=== PATIENT | male | born 1950 | race Caucasian/White ===

== ENCOUNTER → 2017-10-25 08:42 | Outpatient (CLI) | payer MEDICARE, OTHER, SELFPAY ==
--- NOTE | 2017-10-25 06:55 | CT_ITS ---
STUDY: LOW DOSE CT LUNG CANCER SCREENING REASON FOR EXAM: Male, 67 years old. Screening for lung cancer RADIATION DOSAGE (If Supplied By Facility): CTDIvol = ( 4.02 ) mGy, DLP = ( 158.03 ) mGycm TECHNIQUE: No contrast was administered. Low dose technique was utilized (average mAS-38 and kVp 120). 1.25 mm axial source images with a slice interval of 1.25-mm were reconstructed in lung windows. 2.5 mm axial source images with a slice interval of 2.5-mm were reconstructed in lung windows. 5.0 mm axial source images with a slice interval of 5.0-mm were reconstructed in soft tissue windows. Nodule measured using lung windows on PACS and/or independent workstation with automated measurement of minimum and maximum diameter. Nodule measurement reported as average diameter rounded to the nearest whole number. Growth is defined as an increase ins size of greater than 1.5 mm. COMPARISON: None. NODULES: The lungs are clear. There is no demonstrated pleural abnormality. Normal heart and pericardium. Normal mediastinum. Normal hilar regions. Normal unenhanced pulmonary arteries. Normal aorta arch and descending thoracic aorta. There are multi-level degenerative changes and demineralization of the thoracic spine. There is no demonstrated abnormality of the visualized upper abdomen. CT/Low Dose CT Lung Screening IMPRESSION: Lung-RADS category 2. Recommendation: Routine screening CT scan in one year. IMPORTANT NOTES FOR USE: ACR Lung-RADS Version 1.0 Assessment Categories Release Date: November 15, 2013 Category: Coded 0-4 bases on nodule(s) with highest degree of suspicion. Negative screen is defined as categories 1 and 2; a positive screen is defined as categories 3 and 4. Category 3 and 4A nodules that are unchanged on interval CT should be coded as category 2, and individuals returned to screening in 12 months. Category 4X: Category 3 or 4 nodules with additional imaging findings that increase the suspicion of lung cancer, such as spiculation, GGN that doubles in size in 1 year, enlarged lymph notes, etc. Category Modifiers: S (significant finding unrelated to lung cancer) and C (prior history of treated lung cancer) may be added to the 0-4 Lung-RADS Electronically Signed: Angella Hernandez MD at 8:05 EDT Tel , Service support ,
== END ==
PROVIDERS: Family Provider Internal Medicine; PCP Internal Medicine; Visit Provider Internal Medicine Hematology & Oncology
DX: Z12.2 Encounter for screening for malignant neoplasm of respiratory organs (principal); Z87.891 Personal history of nicotine dependence
CPT/HCPCS: G0297

== ENCOUNTER → 2017-12-08 09:01 | Outpatient (CLI) | payer MEDICARE, OTHER, SELFPAY ==
[2017-12-08 09:00] VITALS: PULSE 61; PULSE 64; PULSE 69; PULSE 76; PULSE 79; PULSE 83; PULSE 85; PULSE 94; O2SAT 89; O2SAT 90; O2SAT 91; O2SAT 92; O2SAT 93; O2SAT 94
--- NOTE | 2017-12-08 13:27 | WT_ITS ---
PSN 6 Minute Walk Test - 6 Minute Walk Test 6 Minute Walk Test: 6 Minute Walk Test PSN:6-Minute Walk Test Start: 12/08/17 09: 20 Freq: Status: Active Protocol: RESP.6MINW Document 12/08/17 09:00 ALBER (Rec: 12/08/17 09:23 JLA [id number]) 6 Minute Walk Test Date Performed 12/08/17 Time Performed 09:00 Height 5 ft 11 in Weight: 217 lb 6.449 oz Weight in Pounds 217.[address]: Rk Dawson Assistive device used: None Pre-test Oxygen Delivery Method Room Air Pulse Ox (%) 92 Pulse Rate (60-100 beats/min) 61 Dyspnea Alexus Scale (0-10) 0 Exertion Alexus Scale (6-20) 6 1st minute Oxygen Delivery Method Room Air Pulse Ox (%) 93 Pulse Rate (60-100 beats/min) 69 2nd minute Oxygen Delivery Method Room Air Pulse Ox (%) 91 Pulse Rate (60-100 beats/min) 79 3rd minute Oxygen Delivery Method Room Air Pulse Ox (%) 91 Pulse Rate (60-100 beats/min) 83 4th minute Oxygen Delivery Method Room Air Pulse Ox (%) 90 Pulse Rate (60-100 beats/min) 85 5th minute Oxygen Delivery Method Room Air Pulse Ox (%) 89 Pulse Rate (60-100 beats/min) 94 6th minute Oxygen Delivery Method Room Air Pulse Ox (%) 91 Pulse Rate (60-100 beats/min) 76 Dyspnea Alexus Scale (0-10) 2 Exertion Alexus Scale (6-20) 13 Post-test Oxygen Delivery Method Room Air Pulse Ox (%) 94 Pulse Rate (60-100 beats/min) 64 Full Laps Walked 19 Partial Lap, Number of Tiles Walked 47 Total Distance Walked (ft) 1168 - Interpretation Interpretation: The patient ambulated 1160 feet over the course of 6 minutes beginning on room air without assistive devices of brace. Pretest and oxygen saturation was noted to be 92% on room air. With ambulation, the darion oxygen saturation was 89%. There was no significant exertional oxygen desaturation. - Recommendations Recommendations: There is no indication for the use of supplemental oxygen at this time. However , close interval follow-up is recommended given the low resting oxygen saturation prior to testing in conjunction with an ambulatory pulse ox reading of 89%.
== END ==
PROVIDERS: Family Provider Internal Medicine; PCP Internal Medicine; Visit Provider Internal Medicine Critical Care Medicine
DX: J44.9 Chronic obstructive pulmonary disease, unspecified (principal)
CPT/HCPCS: 94618

== ENCOUNTER → 2017-12-12 10:51 | Outpatient (CLI) | payer MEDICARE, OTHER, SELFPAY ==
--- NOTE | 2017-12-12 10:54 | ECHOD_ITS ---
Reason For Study: Ventricular Tachycardia Procedure This was a 2D Doppler, Color Flow transthoracic echocardiogram. The exam was of poor technical quality due to body habitus. The study was technically difficult. Contrast injection was performed. Exam performed in department. Left Ventricle Moderately dilated left ventricle. Mild segmental systolic dysfunction (see wall motion). The estimated ejection fraction is 45 %. There is evidence of diastolic dysfunction. Posterior-Basal: Akinetic. Basal inferoseptal: Hypokinetic. Mid-Anterior : Hypokinetic. Mid-Lateral : Hypokinetic. Mid-Posterior: Akinetic. Mid-anteroseptal : Hypokinetic. Anterior [place] : Hypokinetic. Lateral [place] : Hypokinetic. Right Ventricle Normal RV size. ICD or pacer leads identified within the right ventricle. Normal systolic function. Atria The left atrium is mildly enlarged. Normal right atrium. ICD or pacer leads identified within the right atrium. No doppler evidence for ASD. Mitral Valve There is no mitral annular calcification. Normal mitral valve. Trivial mitral valve insufficiency. Tricuspid Valve Normal tricuspid valve. Trivial tricuspid valve insufficiency. Right ventricular systolic pressure estimated to be 27 mmHg. Aortic Valve Trisinus/trileaflet aortic valve. Moderate focal aortic valve thickening. Moderate focal aortic valve calcification. Pulmonic Valve The pulmonic valve is not well visualized. Great Vessels Normal sized aortic root. Pericardium/Pleural No pericardial effusion. Medication Definity0.6ml given slow IV push to enhance endocardial definition. MMode/2D Measurements & Calculations LVIDd: 6.4 cm IVSd: 1.2 cm Ao root diam: 3.6 cm LVIDs: 5.2 cm LVPWd: 0.75 cm RVDd: 4.8 cm FS: 18.3 % LAV(MOD-bp): 57.0 ml LA A4 area: 18.9 cm2 RA A4 area: 19.1 cm2 LAV(MOD-bp) Indexed: 26.1 ml/m2 LAV(MOD-sp2): 64.6 ml LAV(MOD-sp4): 48.6 ml Doppler Measurements & Calculations MV E max kelby: 62.7 cm/sec Lat Peak E' Kelby: 6.6 cm/sec Med Peak E' Kelby: 3.9 cm/sec MV A max kelby: 67.9 cm/sec E/E' lat: 9.5 E/E' med: 16.2 MV E/A: 0.92 Ao V2 max: 225.1 cm/sec LV V1 max: 89.0 cm/sec PA V2 max: 101.9 cm/sec Ao max P.3 mmHg LV V1 max P.2 mmHg Ao V2 mean: 161.0 cm/sec LV V1 mean P.0 mmHg Ao mean P.4 mmHg LV V1 mean: 67.5 cm/sec Ao V2 VTI: 46.6 cm LV V1 VTI: 20.0 cm TR max kelby: 244.1 cm/sec TR max P.8 mmHg Interpretation Summary The study was technically difficult. Contrast injection was performed. Moderately dilated left ventricle. Mild segmental systolic dysfunction (see wall motion). The estimated ejection fraction is 45 %. The left atrium is mildly enlarged. Trivial mitral valve insufficiency. Trivial tricuspid valve insufficiency. Moderate focal aortic valve thickening. Moderate focal aortic valve calcification. Right ventricular systolic pressure estimated to be 27 mmHg. There is evidence of diastolic dysfunction. ICD or pacer leads identified within the right atrium ICD or pacer leads identified within the right ventricle. Ordering Physician: Raysa Carlos Referring Physician: Cathy Kellogg Performed By: Deirdre Varner RDCS, JUAN ANTONIO
== END ==
PROVIDERS: Family Provider Internal Medicine; PCP Internal Medicine
DX: I47.2 Ventricular tachycardia (principal)
CPT/HCPCS: 93306; Q9957; A4216; C8929

== ENCOUNTER → 2017-12-18 10:47 | Outpatient (CLI) | payer MEDICARE, OTHER, SELFPAY ==
--- NOTE | 2017-12-18 14:29 | PFTCOMP ---
COMPLETE PULMONARY FUNCTION TEST INTERPRETATION Brief HPI: Patient is a 67 year old female, currently under the care of Dr. Dawson, who presents to [facility] for complete pulmonary function tests secondary to diagnosis of COPD. Respiratory therapist reports good effort and reproducible results. Interpretation: Forced expiration spirometry shows no large airways obstructive ventilatory defect with an FEV1 of 82% predicted. There is no significant bronchodilator response by ATS criteria. Spirograms are of good quality and plateau slowly, indicating slowly emptying areas of the lungs. The respiratory flow volume loop shows decreased expiratory flow rates at high lung volumes consistent with small airways obstruction. Lung volumes by body plethysmography show a normal total lung capacity at 7.43 L, 108% predicted. All other lung volumes are within normal limits. Diffusion capacity by carbon monoxide is decreased at 66% predicted. The airway resistance is elevated. No previous pulmonary function tests were available for review. Impression: Isolated defect in diffusion capacity consistent with a pulmonary vascular disease. There are also stigmata of small airways disease noted.
--- NOTE | 2017-12-18 14:32 | PFTCOMP_ITS ---
COMPLETE PULMONARY FUNCTION TEST INTERPRETATION Brief HPI: Patient is a 67 year old female, currently under the care of Dr. Dawson , who presents to [facility] for complete pulmonary function tests secondary to diagnosis of COPD. Respiratory therapist reports good effort and reproducible results. Interpretation: Forced expiration spirometry shows no large airways obstructive ventilatory defect with an FEV1 of 82% predicted. There is no significant bronchodilator response by ATS criteria. Spirograms are of good quality and plateau slowly, indicating slowly emptying areas of the lungs. The respiratory flow volume loop shows decreased expiratory flow rates at high lung volumes consistent with small airways obstruction. Lung volumes by body plethysmography show a normal total lung capacity at 7.43 L , 108% predicted. All other lung volumes are within normal limits. Diffusion capacity by carbon monoxide is decreased at 66% predicted. The airway resistance is elevated. No previous pulmonary function tests were available for review. Impression: Isolated defect in diffusion capacity consistent with a pulmonary vascular disease. There are also stigmata of small airways disease noted.
== END ==
PROVIDERS: Family Provider Internal Medicine; PCP Internal Medicine; Visit Provider Internal Medicine Critical Care Medicine
DX: J44.9 Chronic obstructive pulmonary disease, unspecified (principal)
CPT/HCPCS: 94060; 94726; 94729

== ENCOUNTER → 2018-11-03 11:52 | Outpatient (CLI) | payer MEDICARE, OTHER, SELFPAY ==
--- NOTE | 2018-11-03 12:44 | CT_ITS ---
STUDY: LOW DOSE CT LUNG CANCER SCREENING REASON FOR EXAM: Male, 68 years old. History of 56 pack years of smoking. RADIATION DOSAGE (If Supplied By Facility): CTDIvol = ( 4.02 ) mGy, DLP = ( 152.50 ) mGycm TECHNIQUE: No contrast was administered. Low dose technique was utilized (average mAS-38 and kVp 120). 1.25 mm axial source images with a slice interval of 1.25-mm were reconstructed in lung windows. 2.5 mm axial source images with a slice interval of 2.5-mm were reconstructed in lung windows. 5.0 mm axial source images with a slice interval of 5.0-mm were reconstructed in soft tissue windows. Nodule measured using lung windows on PACS and/or independent workstation with automated measurement of minimum and maximum diameter. Nodule measurement reported as average diameter rounded to the nearest whole number. Growth is defined as an increase ins size of greater than 1.5 mm. COMPARISON: Comparison is made with prior examination dated October 25, 2017. NODULES: No suspicious nodules are seen. Emphysema: Minimal scarring at the lung bases slightly worse on the left lung base with cystic changes. Endobronchial lesion: None Aorta: Scattered calcified atherosclerotic plaques. Coronary arteries: Coronary artery calcification. Heart: A left-sided dual-chamber pacemaker is seen. Pulmonary artery: Unremarkable. Mediastinal nodes: Scattered benign-appearing small mediastinal lymph nodes. Other chest and abdominal findings: Small hiatal hernia. Degenerative changes of the thoracic vertebrae. CT/Low Dose CT Lung Screening IMPRESSION: Lung-RADS category 2 - Continue annual screening with LDCT in 12 months. IMPORTANT NOTES FOR USE: ACR Lung-RADS Version 1.0 Assessment Categories Release Date: November 15, 2013 Category: Coded 0-4 bases on nodule(s) with highest degree of suspicion. Negative screen is defined as categories 1 and 2; a positive screen is defined as categories 3 and 4. Category 3 and 4A nodules that are unchanged on interval CT should be coded as category 2, and individuals returned to screening in 12 months. Category 4X: Category 3 or 4 nodules with additional imaging findings that increase the suspicion of lung cancer, such as spiculation, GGN that doubles in size in 1 year, enlarged lymph notes, etc. Category Modifiers: S (significant finding unrelated to lung cancer) and C (prior history of treated lung cancer) may be added to the 0-4 Lung-RADS Electronically Signed: Andrew Arrington, at 13:13 EDT , Service support ,
--- NOTE | 2018-11-03 14:47 | ART_ITS ---
Reason For Study: Claudication Procedure A bilateral lower extremity continuous wave Doppler with analog waveform analysis,segmental pressures,and ankle brachial indexes without exercise. Left Segmental Pressures Left brachial= 113mmHg. Left thigh = 71mmHg. Left calf = 66mmHg. Left posterior tibial artery = 58mmHg. Left dorsalis pedis artery = 58mmHg. The left dorsalis pedis waveforms are monophasic. The left posterior tibial artery waveforms are monophasic. Right Segmental Pressures Right brachial= 111mmHg. Right posterior tibial artery = 137mmHg. Right dorsalis pedis artery = 142mmHg. Right digit = 123 mmHg. The right dorsalis pedis waveforms are triphasic. The right posterior tibial artery waveforms are triphasic. Indices The right ankle brachial index by the dorsalis pedis is 1.3. The right ankle brachial index by the posterior tibial artery is 1.2. The right digital-brachial index is 1.1. The left ankle brachial index by the dorsalis pedis is .51. The left ankle brachial index by the posterior tibial artery is .51. Interpretation Summary Normal resting right lower extremity indices and waveforms. Abnormal left lower extremity indices and waveforms suggesting possible ileofemoral inflow/superficial femoral artery occlusive disease well within the range of vascular claudication. Left PT and DP doppler waveforms are monophasic suggesting multisegmental disease. Ordering Physician: Cathy Kellogg M.D. Referring Physician: Cathy Kellogg M.D. Performed By: Kizzy Rios RVT
== END ==
PROVIDERS: Family Provider Internal Medicine; PCP Internal Medicine; Referring Provider Nurse Practitioner Family; Visit Provider Nurse Practitioner Family
DX: Z12.2 Encounter for screening for malignant neoplasm of respiratory organs (principal); I73.9 Peripheral vascular disease, unspecified; F17.210 Nicotine dependence, cigarettes, uncomplicated
CPT/HCPCS: 93923; G0297

== ENCOUNTER → 2018-11-24 09:52 | Outpatient (CLI) | payer MEDICARE, OTHER, SELFPAY ==
[2018-11-03 12:08] VITALS: BMI 30.9
--- NOTE | 2018-11-25 11:02 | PFT ---
INTRODUCTION: The patient is a 68-year-old male that presents for pulmonary function studies secondary to a diagnosis of COPD. Respiratory therapy reports good patient effort. Bronchodilators were used during testing. INTERPRETATION: Forced expiration spirometry demonstrates the presence of a mild large airways obstructive ventilatory defect. There was no significant response to aerosolized bronchodilators. Spirograms are of good quality and do not plateau indicating slow emptying of the lungs. Body plethysmography was performed and reveals an elevated RV to 130% of predicted, indicative of underlying air trapping. Diffusing capacity by single breath CO is moderately reduced at 48% of predicted. IMPRESSION: Irreversible mild large airways obstructive ventilatory defect with associated air trapping and asymmetric reduction in diffusing capacity.
== END ==
PROVIDERS: Family Provider Internal Medicine; PCP Internal Medicine; Referring Provider Internal Medicine Critical Care Medicine; Visit Provider Internal Medicine Critical Care Medicine
DX: F17.210 Nicotine dependence, cigarettes, uncomplicated (principal)
CPT/HCPCS: 94060; 94726; 94729

== ENCOUNTER → 2018-11-27 10:50 | Outpatient (CLI) | payer MEDICARE, OTHER, SELFPAY ==
[2018-11-03 12:08] VITALS: BMI 30.9
[2018-11-27 11:18] VITALS: PULSE 59; PULSE 73; PULSE 74; PULSE 78; PULSE 79; PULSE 80; PULSE 89; O2SAT 93; O2SAT 94; O2SAT 96; O2SAT 97; O2SAT 98
--- NOTE | 2018-11-27 13:04 | WT_ITS ---
PSN 6 Minute Walk Test - 6 Minute Walk Test 6 Minute Walk Test: 6 Minute Walk Test PSN:6-Minute Walk Test Start: 11/27/18 11:18 Freq: Status: Active Protocol: RESP.6MINW Document 11/27/18 11:18 [facility] (Rec: 11/27/18 11:21 [facility] [id number]) 6 Minute Walk Test Date Performed 11/27/18 Time Performed 10:55 Height 5 ft 11 in Weight: 222 lb Weight in Pounds 222.[address]: Rk Dawson Assistive device used: None Pre-test Oxygen Delivery Method Room Air Pulse Ox (%) 97 Pulse Rate (60-100 beats/min) 59 L Dyspnea Alexus Scale (0-10) 0 Exertion Alexus Scale (6-20) 11 1st minute Oxygen Delivery Method Room Air Pulse Ox (%) 93 Pulse Rate (60-100 beats/min) 78 2nd minute Oxygen Delivery Method Room Air Pulse Ox (%) 94 Pulse Rate (60-100 beats/min) 89 3rd minute Oxygen Delivery Method Room Air Pulse Ox (%) 94 Pulse Rate (60-100 beats/min) 80 4th minute Oxygen Delivery Method Room Air Pulse Ox (%) 94 Pulse Rate (60-100 beats/min) 79 5th minute Oxygen Delivery Method Room Air Pulse Ox (%) 96 Pulse Rate (60-100 beats/min) 74 Number of Rests Taken 1 6th minute Oxygen Delivery Method Room Air Pulse Ox (%) 97 Pulse Rate (60-100 beats/min) 73 Post-test Oxygen Delivery Method Room Air Pulse Ox (%) 98 Pulse Rate (60-100 beats/min) 74 Dyspnea Alexus Scale (0-10) 0 Exertion Alexus Scale (6-20) 12 Full Laps Walked 13 Partial Lap, Number of Tiles Walked 8 Total Distance Walked (ft) 775 - Interpretation Interpretation: The patient ambulated 775 feet over the course of 6 minutes beginning on room air without assistive devices or breaks. Pretesting oxygen saturation was noted to be 97% on room air. With ambulation, the darion oxygen saturation was 93%. There was no significant exertional oxygen desaturation. - Recommendations Recommendations: There is no indication for the use of supplemental oxygen at this time.
== END ==
PROVIDERS: Family Provider Internal Medicine; PCP Internal Medicine; Referring Provider Internal Medicine Critical Care Medicine; Visit Provider Internal Medicine Critical Care Medicine
DX: F17.210 Nicotine dependence, cigarettes, uncomplicated (principal)
CPT/HCPCS: 94618

== ENCOUNTER 2019-02-16 13:00 | Outpatient (RCR) | payer MEDICARE, OTHER, SELFPAY ==
[2018-12-01 09:07] VITALS: BMI 31.1
--- NOTE | 2019-01-11 09:20 | HP.PTEVAL_ITS ---
Patient's Visit Information MISSY MUÑOZ is a 68 year old M referred to Physical Therapy by Cathy Kellogg DO with a diagnosis of PVD. Date of Evaluation: 01/11/19 Physical Therapist: Carlie Palumbo DPT - Visit Plan Frequency: 2x /Week Duration: 4 Weeks Plan: Aquatic Therapy for core and LE strength/stabilization- water for hydrostatic pressure for PVD. - Subjective Findings: Patient reports that he had a extremity arterial study. Can walk 3-4 minutes and then he gets a cramp in his legs due to poor blood flow. Left leg is the one that bothers him but doesn't know if the other one would cause problems if he kept walking. Right LE has better blood flow than the left. This has been going on 6-8 months. No significant injury just progressively got worse. The cramp happens in the calf and very painful. Worst: 8/10 Agg: walking Eases: sitting down. Best: 0/10. Takes about 3-4 minutes once he sits for it to go away. Recently he has developed weakness in the knees and he can't lock the knees out and his legs wobble. Worries about falling but has not had any falls. No problems with steps but only uses the basement occasionally. Lives with his and is fully I including driving. Winter time he is very sedentary- he is more active in the summer and can be outside more. No problems catching his breathe- but does have COPD. Always wears shoes or house slippers. Does not have any N/T in the LE but they are ice cold most of the day. Does not use a cane or a walker. PMHX: Anxiety, CAD, COPD, Cardiac defibrillator in place, DM, GERD, HTN, meds: Atorvastatin Calcium,, Buspirone HCl , Meclizine HCL, Metformin HCl , Metoprolol Tartrate , Pantoprazole Sodium, Sitagliptin Phosphate, Spironolactone , Aspirin Paroxetine rivaroxaban clonazepam ramipril - Objective Posture: FH, RS- can correct but does not maintain. Gait: no deviation noted. Stairs: asc/desc 8 recip with 2 HR- does not put full foot on step instead only uses the ball of his foot and is less stable- gave verbal cues and he was able to correct and was safer with less UE A. HR/TR: able with UE. SLS: 5 sec then required UE A for righting- Left is more unstable than right. ROM: WFL in all planes. Sensation: WNL to gross touch bilaterally. Palpation: tender along left calf 1/10. Strength: Ankle: 4+/5, Knee: 4+/5, Hip: 4/5 Core: fair minus. Flex: Gastroc: moderate, Soleus: mild, HS: moderate - Goals Goal 1:: Patient will be I with HEP and progression Goal Time Frame: 4-6 Weeks Goal 2:: Patient will ambulate >5 min with 0/10 pain in the LE Goal Time Frame: 4-6 Weeks Goal 3:: Patient will maintain proper posture t/o tx session to demo increased core s/s Goal Time Frame: 4-6 Weeks Goal 4:: Patient will report 0/10 pain for 1 week Goal Time Frame: 4-6 Weeks - Rehabilitation Potential Physical Therapy Diagnosis: Patient presents with hypomobility- he has decreased strength/stabilization and endurance leading to decreased ability to perform ambulation without pain Rehabilitation Potential: Fair - Anticipated Interventions Therapeutic Exercise to Include: Strength training, Endurance training, Balance training, Agility training, Body mechanics, Postural training, Flexibilty training, Gait and locomotor training, In an aquatic setting, Dynamic Lumbar Stabilization For the Purpose of:: To improve muscle performance and motor function Thank you for the opportunity to evaluate your patient. For Medicare and Medicare HMO plans, please review the plan of care and approve it. It will need to be FAXED BACK to us at [phone] for Medicare purposes. For Medicare only, by signing this I certify the plan of care. Please let me know if there are questions or concerns regarding this plan of care. Physician Signature: Date:_
--- NOTE | 2019-02-16 13:22 | HP.PTDCSUM ---
HP - PT D/C Summary It has been my pleasure to treat MISSY MUÑOZ under orders from Cathy Kellogg DO, for the diagnosis of PVD for a total of 10 visit(s). Discharge Date: Please see the following information for a summary of their discharge status. - Subjective Subjective: Patient reports that the legs are about the same- he can work longer 30-40 min but when he got out it was still 3-3.5 min and the leg cramps. Did have some cramps in the pool but the jets helped. Does not have an apt to go back and see his MD. - Pain L LE Pain Intensity (Out of 10): 0 - Overall Improvement % Improvement: 50 - Objective Objective/Function: Posture: FH, RS- can correct but does not maintain for more tahn 1 min at at kizzy Gait: no deviation noted. Stairs: asc/desc 8 recip with 1 HR HR/TR: able with UE. SLS: 20 sec then required UE A for righting- Left is more unstable than right with increased muscle activation and sway. ROM: WFL in all planes. Sensation: WNL to gross touch bilaterally. Palpation: not tender to touch. Strength: Ankle: 5/5, Knee: 5/5, Hip: 4+/5 Core: fair. Flex: Gastroc: moderate, Soleus: mild, HS: moderate - Goals Goal 1:: Patient will be I with HEP and progression Goal Progress: Goal Met Goal 2:: Patient will ambulate >5 min with 0/10 pain in the LE Goal Progress: Progressing Goal 3:: Patient will maintain proper posture t/o tx session to demo increased core s/s Goal Progress: Progressing Goal 4:: Patient will report 0/10 pain for 1 week Goal Progress: Progressing - Plan Plan: Discharge to I pool program at [facility]- encouraged him to call if questions or concerns - D/C Information If there are questions or concerns regarding this patient's physical therapy, please feel free to call me at [phone]. Thank you for the referral of this patient. Sincerely, FADI DowdT
== END 2019-02-16 13:51 | disposition home or self-care (01) ==
LOC: PT 13:00
PROVIDERS: Family Provider Internal Medicine; PCP Internal Medicine; Referring Provider Internal Medicine; Visit Provider Internal Medicine
DX: I73.9 Peripheral vascular disease, unspecified (principal)
CPT/HCPCS: 97113; 97161; 97164

== ENCOUNTER → 2019-06-11 13:18 | Outpatient (CLI) | payer MEDICARE, OTHER, SELFPAY ==
[2018-12-01 09:07] VITALS: BMI 31.1
[2019-06-01 09:18] VITALS: BMI 31.1
--- NOTE | 2019-06-11 13:23 | CT_ITS ---
STUDY: CT LUMBAR SPINE WITHOUT CONTRAST REASON FOR EXAM: Male, 68 years old. Spinal canal stenosis, bilateral leg pain with recent falls RADIATION DOSAGE (If Supplied By Facility): CTDIvol = ( 28.75 ) mGy, DLP = ( 842.50 ) mGycm TECHNIQUE: The patient was scanned in a multi detector CT scanner. High resolution transaxial imaging was performed. Images were obtained from lower thoracic spine to mid sacrum. Sagittal and coronal images were reconstructed. Individualized dose optimization techniques were used for this CT. COMPARISON: None FINDINGS: Normal lumbar lordosis. There is no substantial scoliosis. No compression fractures seen. L1-2: Anterior spondylosis. Normal disc height and morphology. Normal bilateral facet joints. Normal central canal and bilateral lateral recesses. Normal bilateral intervertebral neural foramina. L2-3: Anterior spondylosis with mild disc space narrowing posteriorly. There is broad posterior disc bulge with ligamentum flavum hypertrophy and facet arthropathy contributing to canal narrowing. Mild bilateral foraminal narrowing. L3-4: Disc space narrowing with endplate sclerosis and broad posterior disc bulging, ligamentum flavum hypertrophy and facet arthropathy contributing to canal narrowing. Moderate bilateral foraminal stenosis. L4-5: Severe disc space narrowing with vacuum disc phenomenon. Broad posterior disc bulge with superimposed central disc protrusion (axial image 62) measuring 5 x 5 mm on image 62 of series 2. There is bilateral foraminal stenosis. L5-S1: Disc space. Anterior spondylosis and broad posterior disc bulging narrowing the spinal canal. There is narrowing of bilateral neural foramen. Atherosclerosis of the abdominal aorta and iliac arteries. Borderline dilation of the abdominal aorta, incompletely visualized. CT/Spine Lumbar without Contrast IMPRESSION: 1. No compression fracture. 2. Multilevel degenerative disc disease with canal and foraminal stenosis, as above. 3. Atherosclerosis. Suspect possibility of abdominal aortic aneurysm (measuring up to 3 cm, although incompletely visualized). Electronically Signed: Chaim Molina MD ([place]) at 16:12 EST , Service support ,
--- NOTE | 2019-06-11 13:40 | ART_ITS ---
Reason For Study: CLAUDICATION Procedure A bilateral lower extremity continuous wave Doppler with analog waveform analysis,segmental pressures,and ankle brachial indexes without exercise. Left Segmental Pressures Left brachial= 82mmHg. Left thigh = 52mmHg. Left calf = 52mmHg. Left posterior tibial artery = 50mmHg. Left dorsalis pedis artery = 46mmHg. The left dorsalis pedis waveforms are monophasic. The left posterior tibial artery waveforms are monophasic. Right Segmental Pressures Right brachial= 91mmHg. Right posterior tibial artery = 116mmHg. Right dorsalis pedis artery = 119mmHg. Right digit = 68 mmHg. The right dorsalis pedis waveforms are triphasic. The right posterior tibial artery waveforms are triphasic. Indices The right ankle brachial index by the dorsalis pedis is 1.31. The right ankle brachial index by the posterior tibial artery is 1.27. The right digital-brachial index is .75. The left ankle brachial index by the dorsalis pedis is .51. The left ankle brachial index by the posterior tibial artery is .55. Interpretation Summary Normal right lower extremity resting indices and triphasic waveforms. Finding suggest medial calcification of vessel schaffer. Digital small vessel disese noted on the right. Moderately-severe to bordering upon severe occlusive disease left lower extremity. Abnormal left digital waveforms preventing digital brachial index. This finding suggests multi- segmental disease. Waveforms suggest left femoral-popliteal and infra-geniculate disease. Ordering Physician: Asif Uribe Referring Physician: TORRES BLOCK Performed By: Henna pSrague, STEVEN, RVT
== END ==
PROVIDERS: Family Provider Internal Medicine; PCP Internal Medicine; Referring Provider Psychiatry & Neurology Neurology; Visit Provider Psychiatry & Neurology Neurology
DX: M48.062 Spinal stenosis, lumbar region with neurogenic claudication (principal); I70.213 Atherosclerosis of native arteries of extremities with intermittent claudication, bilateral legs
CPT/HCPCS: 72131; 93923; 93926

== ENCOUNTER 2019-07-01 11:40 | Inpatient (IN) | payer MEDICARE, OTHER, SELFPAY ==
[2019-06-01 09:18] VITALS: BMI 31.1
[2019-07-01] VITALS (27 sets, daily range): BP systolic 77–130; BP diastolic 36–92; PULSE 30–71; RESP 11–20; TEMP 36.1–36.8; O2SAT 9–100; BMI 30.7; BMI 30.4
--- NOTE | 2019-07-01 12:38 | ED.DCSUM_ITS ---
- ER Visit Summary Date of Service: 07/01/19 Chief Complaint: Anemia History of Present Illness: The patient is a 69 M history of coronary disease, VT, A. fib with cardiac stent. Hypertension noncemented diabetes. Anticoagulant on Xarelto due to his A. fib. Patient had labs done by his primary care physician's office yesterday and they found his hemoglobin was 5.9 and sent him in for evaluation. He denies any gross bleeding from anywhere or melena. States he has been more tired lately. Denies any chest pain. Thinks he may have had a GI bleed in the past. Physical Examination: Older male no acute distress his initial blood pressure is 85/51. He does look pale. HEENT exam unremarkable pale. Neck nontender. Lungs clear to auscultation. Heart regular rhythm rate about 60. Abdomen is soft nontender normal bowel sounds no peritoneal signs. Patient moving all 4 extremities. Neurovascular intact. No edema. Neurologically is awake alert with no focal motor deficits. Rectal exam done with female nurse present in room brown stool no gross blood. No melena. No masses. Nontender. Test Results: CBC shows a significant anemia with a hemoglobin of 5.7 it was 5.9 when drawn as outpatient yesterday and 16 in February. His electrolytes are unr emarkable BUN 25 creatinine 1.25. BMP shows Patient was typed and crossed for 4 units of blood. Emergency Department Course and Treatment: I reviewed the patient's labs from yesterday. His hemoglobin is 5.9. He will be typed and crossed and transfused 2 units and admitted. Treatment Plan: Repeat exam he is doing well at 13 12 PM. Currently his blood pressure is 104/55. He sitting upright in bed. He understands he will be admitted and transfused. I have the hospitalist on page. Patient cannot remember. Previously did endoscopy on him. Disposition: Admission Impression: Acute anemia of uncertain etiology Rule out GI bleed History of A. fib on Xarelto Transient hypotension Transfused 2 units packed red blood cells This note was generated with [employer] dictation software. It may contain incorrect words, spelling, and punctuation that were not noted in review of the chart prior to signing ED Disposition - Plan for ED Patient: Referrals: Cathy Kellogg DO [Primary Care Provider] -
[2019-07-01 12:46] LABS: Hematocrit 22.2 % (40-54); Mean Corp Hgb Conc 25.7 g/dL (32-36); Mean Corpuscular Hgb 18.3 pg (27.0-32.0); Mean Corpuscular Volume 71.4 fL (80-94); POSITIVE COUNT YES; POSITIVE MORPHOLOGY YES; Platelet Count 337 K/mm3 (150-450); RBC Distribution Width SD 55.5 fl (35.1-43.9); Red Blood Count 3.11 M/mm3 (4.6-6.2); White Blood Count 6.9 K/mm3 (4.4-11.0)
[2019-07-01 12:50] LABS: Hemoglobin 5.7 g/dL (13.0-16.5); Scan Indicated on CBC? Y/N YES- FLAGS NOTED
[2019-07-01 13:08] LABS: Differential Comment SCANNED
[2019-07-01 13:11] LABS: Anion Gap 5 (5-15); BUN 25 mg/dL (7-18); Calcium,Total 8.5 mg/dL (8.5-10.1); Chloride 111 mmol/L (98-107); Creatinine, Serum 1.25 mg/dL (0.70-1.30); EST Glomerular Filtration Rate 61 mL/min (>60); Est Glom Filt Rate - Afr Amer 73 mL/min (>60); Estimated Creatinine Clearance 57.73 ml/min; Glucose 82 mg/dL (74-106); Potassium 4.4 mmol/L (3.5-5.1); Sodium Level 144 mmol/L (136-145)
--- NOTE | 2019-07-01 13:26 | HP.PCM_ITS ---
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 (7) Nicotine dependence, cigarettes, uncomplicated Status: Chronic (8) CANDICE (obstructive sleep apnea) Status: Acute Comment: BiPAP 16/12 cm of water with a 2 L/min oxygen bleed History of Present Illness Date of Admission: 07/01/19 Chief Complaint: Abnormal blood work The patient is a 69 year old M with past medical history of chronic smoker obesity, hypertension, type II DM, COPD not on oxygen, CANDICE on CPAP, history of GI bleed years ago(and cannot remember exact details of this, no record in SocialF5) comes in from his primary care doctor's office with abnormal blood work with hemoglobin of 5.9. Patient denied any hematochezia hematuria emesis or melena stools. He denied any chest pain or dizziness or palpitation. He admits to feeling fatigued over months. He denied any recent illness or recently started medications. His hemoglobin was 16.8 in February 2018. Repeat hemoglobin was 5.7 in the emergency department. He denied any back pain or night sweats or fever or chills or weight loss. He recently had a Cologuard testing 6 months ago that was negative The ED showed temperature of 98.0F, heart rate 63, blood pressure initially was 77/36, increased to 115/71, respiration rate was 70, SPO2 was 94% on room air. WBC number is 6.9, hemoglobin is 5.7, platelets 237, sodium is 144, potassium 4.4, chloride 111, bicarbonate 28, BUN is 25, creatinine 1.25. Past Medical History Past Medical History (Chronic Problems): Chronic Problems (Last Reviewed 12/01/18 @ 09:11 by Thuy Camara) History of COPD (Chronic) History of hypertension (Chronic) History of coronary artery disease (Chronic) History of LV Thrombus (Chronic) Mild aortic stenosis (Chronic) Sleep apnea (Chronic) on Cpap ICD (implantable cardioverter-defibrillator) in place (Chronic) History of upper gastrointestinal bleeding (Chronic) Polycythemia (Chronic) Leukocytosis (Chronic) Nicotine dependence, cigarettes, uncomplicated (Chronic) Medical History: Medical History (Last Reviewed 12/01/18 @ 09:11 by Thuy Camara) Alcohol abuse, 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 Anxiety F41.9 CAD (coronary artery disease) I25.10 COPD (chronic obstructive pulmonary disease) J44.[address] Z95.810 Cataract (lens) fragments in eye following cataract surgery, bilateral H59.023 Cataract, bilateral H26.9 Diabetes mellitus E11.9 Dizziness R42 GERD (gastroesophageal reflux disease) K21.9 Hidradenitis L73.2 Hyperkalemia E87.5 Hyperlipidemia E78.5 Hypertensive heart disease without CHF (congestive heart failure) I11.9 Hypokalemia E87.6 Hypoxemia R09.02 Insomnia G47.00 Leukocytosis D72.829 Rosacea L71.9 SOB (shortness of breath) on exertion R06.02 Vitamin D deficiency E55.9 Allergies amlodipine [From [facility]] Adverse Reaction (Intermediate, Verified 07/01/19 11:41) Rash GENERIC BRAND Home Medications: Ambulatory Orders Medication Instructions Recorded Atorvastatin Calcium [Lipitor] 40 mg PO DAILY 10/17/17 Buspirone HCl [Buspar] 15 mg PO BID 10/17/17 Meclizine HCl [Antivert] 25 - 50 mg PO Q8H PRN PRN 10/17/17 Pantoprazole Sodium [Protonix] 40 mg PO QODAY 10/17/17 Sitagliptin Phosphate [Januvia] 100 mg PO DAILY 10/17/17 Spironolactone [Aldactone] 12.5 mg PO DAILY 10/17/17 rivaroxaban 20 mg tablet 20 mg PO DAILY 03/25/18 clonazepam 1 mg tablet 1 mg PO DAILY tab 11/03/18 ramipril 5 mg capsule 5 mg PO QHS cap 11/03/18 Aspirin [Aspirin EC] 81 mg PO DAILY@1700 07/01/19 Empagliflozin [Jardiance] 10 mg PO DAILY 07/01/19 Fish Oil/Dha/Epa [Fish Oil 1,200 1 ea PO TID 07/01/19 mg Fish Oil] Metformin HCl [Metformin HCl ER] 500 mg PO BID 07/01/19 Metoprolol Succinate [Toprol Xl] 100 mg PO DAILY 07/01/19 Paroxetine HCl 20 mg PO DAILY 07/01/19 Pentoxifylline [Trental] 400 mg PO TID 07/01/19 Surgical History: Surgical History (Last Reviewed 12/01/18 @ 09:11 by Thuy Camara) History of angioplasty Z98.62 History of appendectomy Z90.49 History of heart artery stent Z95.5 Surgical History: appendectomy, - - s/p stents Psychiatric History: No pertinent psych hx Lives: Spouse/ Significant Other Smoking Status: Current every day smoker Tobacco Use: Cigarettes Alcohol: None Drugs: None - *Family History Maternal Family History: Family History (Last Reviewed 12/01/18 @ 09:11 by Thuy Camara) Grandfather Heart disease Father Heart disease History Items: - - t 37yrs from complications related to gallbladder surgery Paternal Family History: Family History (Last Reviewed 12/01/18 @ 09:11 by Thuy Camara) Grandfather Heart disease Father Heart disease History Items: Heart Disease Review of Systems Constitutional: Reports: Fatigue. Denies: Anorexia, Chills, Fever, Night Sweats, Malaise, Weakness, Weight Change Eyes: Denies: Blurred vision, Cataracts, Conjunctivae Inflammation, Pain, Redness, Vision Change HEENT: Denies: Difficulty Hearing, Head Aches, Hearing Changes, Sinus Congestion, Sinus Drainage Cardiovascular: Denies: Chest Pain, Claudication, Chest Pressure, Orthopnea, Palpitations, Paroxysmal Noc. Dyspnea Respiratory: Denies: Cough, Hemoptysis, Shortness of breath at rest, Shortness of breath upon exertion, Sputum production Gastrointestinal: Denies: Abdominal Pain, Constipation, Dyspepsia, Hematemesis, Nausea, Melena, Vomiting Genitourinary: Denies: Dysuria, Frequency, Incontinence, Nocturia Musculoskeletal: Denies: Joint Pain, Joint stiffness, Joint swelling, Joint Tenderness Skin: Denies: Pruritis, Rash, Wounds Neurological: Denies: Difficulty swallowing, Focal weakness, Numbness, Tingling Psychiatric: Denies: Anxiety, Depression, Homicidal Ideations, Suicidal Ideations Hematologic/ Lymphatic: Denies: Easy Bruising, Easy Bleeding VTE Information - Inpt Only VTE Present on Admission: No VTE Pharm Prophylaxis ordered?: Yes - Physical Exam Vitals/I&O's: Vital Signs Temp Pulse Resp BP 98.0 F 63 17 85/51 L 07/01/19 11:41 07/01/19 11:41 07/01/19 11:41 07/01/19 11:41 Weight: 99.7 kg Body Mass Index (BMI) 30.7 General: Alert, Oriented x3, Cooperative, No apparent distress, - - morbidly obese HEENT: Atraumatic, PERRLA, EOMI, Normocephalic Oral: Moist Mucosa Neck: Supple, Negative Carotid Bruits Lungs: Clear to auscultation, Normal air movement Cardiovascular: Regular rate, Regular Rhythm, Normal S1, Normal S2, No murmurs Abdomen: Bowel Sounds Present, Soft, Non Tender, Non-Distended, No Hepato- splenomegaly Extremities: No edema Skin: No rashes Musculoskeletal: No Tenderness to Palpation of Joints or Extremities Lymphatic: No Cervical, Supraclavicular, or Inguinal Adenopathy Neurological: Cranial nerves II-XII grossly intact, Neuro grossly intact Psych/Mental Status: Normal Affect, Appropriate Laboratory Results 07/01/19 12:00: WBC 6.9, RBC 3.11 L, Hgb 5.7 L*, Hct 22.2 L, MCV 71.4 L, MCH 18.3 L, MCHC 25.7 L, RDW Std Deviation 55.5 H, RDW Coeff of Jake 22.0 H, Plt Count 337, MPV 10.0, Differential Comment SCANNED, Diff Path Review November07/01/19 12:00: Sodium 144, Potassium 4.4, Chloride 111 H, Carbon Dioxide 28.0, Anion Gap 5, BUN 25 H, Creatinine 1.25, Estim Creat Clear Calc 57.73, Est GFR (MDRD) Af Amer 73, Est GFR (MDRD) Non-Af 61, BUN/Creatinine Ratio 20.0, Glucose 82, Calcium 8.5 07/01/19 12:00: Blood Type Pending, Antibody Screen Pending, Crossmatch See De tail Assessment/Plan All Active Problems (Last Reviewed 12/01/18 @ 09:11 by Thuy Camara) Encounter for screening for lung cancer (Acute) CANDICE (obstructive sleep apnea) (Acute) Abnormal PFTs (pulmonary function tests) (Acute) 69 year old M with past medical history of chronic smoker obesity, hypertension, type II DM, COPD not on oxygen, CANDICE on CPAP, history of GI bleed years ago (and cannot remember exact details of this, no record in SocialF5) comes in from his primary care doctor's office with abnormal blood work with hemoglobin of 5.9. 1. Severe anemia, unclear etiology, no reported history of GI bleed/acute blood loss Rectal exam done by emergency room was negative for jhoan blood History of secondary polycythemia. Patient recently had a Cologuard testing 6 months ago that was negative Hemoglobin down from 16.8 to 5.7 We will hold Xarelto We will transfuse 4 units of packed RBCs with IV Lasix residential between transfusions Check reticulocyte count, stool for occult blood, general surgery consult for colonoscopy, Consider hematology consult if no etiology could be found for possible work-up for bone marrow pathology 2. Hypertension, relatively hypotensive, will hold all home blood pressure medications Will continue to monitor, may resume blood pressure meds depending on his vitals 3. Type II DM, on Jardiance, Januvia, metformin Will hold these and put on insulin sliding scale with blood glucose checks 4. CANDICE on CPAP 5. CAD status post stents, chronic atrial fibrillation, status post pacemaker, on aspirin, Xarelto. metoprolol EKG showed NSR, PVCs. Will hold these meds 6. Anxiety/depression, on buspirone, clonazepam, paroxetine 7. DVT prophylaxis-SCDs 8. Code status - DNR-CCA Code Visit Inpatient E&M: 34396 Init Hosp L3 Procedures: 39132 Advncd Care Plan 30 Min
--- NOTE | 2019-07-01 13:52 | EKG12_ITS ---
Test Reason : ANEMIA Blood Pressure : / mmHG Vent. Rate : 061 BPM Atrial Rate : 061 BPM P-R Int : 208 ms QRS Dur : 166 ms QT Int : 524 ms P-R-T Axes : 000 100 046 degrees QTc Int : 527 ms AV dual-paced rhythm with occasional Premature ventricular complexes Abnormal ECG Confirmed by JANNET MOONEY, JYOTHI ([id number]), senior technical editor ELVIE BARROW ([id number]) on 07/05/2019 11:34:54 AM Referred By: Valarie Nair Confirmed By:JYOTHI POWER MD
--- NOTE | 2019-07-01 15:15 | CT_ITS ---
STUDY: CT ABDOMEN AND PELVIS WITH CONTRAST REASON FOR EXAM: Male, 69 years old. Severe anemia. Polycythemia leukocytosis. RADIATION DOSAGE (If Supplied By Facility): CTDIvol = ( 21.92 ) mGy, DLP = ( 57985.66 ) mGycm TECHNIQUE: Transaxial images were obtained from the dome of the diaphragm to the symphysis pubis with oral contrast. 100CC ISOVUE 370 was administered. Sagittal and coronal images were reconstructed. Individualized dose optimization techniques were used for this CT. COMPARISON: None. FINDINGS: Small bilateral pleural effusions and atelectasis. The heart is mildly enlarged with pacer leads in the right ventricle and atrium. The visualized portions of the heart are within normal limits. There is a tiny cyst in the dome of segment 2 of the liver. Liver is otherwise uniform in density. Normal gallbladder and extrahepatic biliary system. Normal spleen. Normal pancreas. Normal bilateral adrenal glands. The right kidney is of normal size and contour. There is stranding of the perinephric fat and pararenal fascial planes. There is a 1 cm cyst lower pole. There is mild hydronephrosis and ureterectasis to the urinary bladder without filling defect. The left kidney is of normal size and cortical thickness. There are multiple renal cysts. The largest measures 2.6 cm. There is stranding of the perinephric fat and pararenal fascial planes. There is marked hydronephrosis and ureterectasis to the urinary bladder without filling defect. Normal visualized stomach. Normal small intestine. Scattered sigmoid diverticuli without acute inflammatory change. There is non-visualization of the appendix. There is an ectatic atherosclerotic aorta without jhoan aneurysm. There is no dissection. Normal inferior vena cava. Normal retroperitoneum. Urinary bladder is markedly distended extending upward to above the umbilicus. There is no wall thickening or mass. There are no filling defects. The prostate is enlarged and invaginates into the bladder floor. There are phleboliths in the pelvis without lymphadenopathy. No free air or free fluid seen within the peritoneal cavity Normal abdominal wall. There are diffuse degenerative changes of the visualized lumbar spine. CT/Abdomen/Pelvis WITH Contrast IMPRESSION: 1. Marked distention of the urinary bladder and bilateral renal collecting systems on to be due to outlet obstruction from prostatic enlargement. 2. Colonic diverticulosis without acute inflammatory change. 3. Renal and hepatic cysts. 4. Small bilateral pleural effusions and atelectasis. 5. Cardiomegaly with cardiac pacemaker. 6. Ectatic atherosclerotic aorta. 7. Degenerative changes of the lumbar spine. Electronically Signed: Jose Lujan DO at 17:55 EST Tel [phone], Service support ,
[2019-07-01 15:42] LABS: AST(SGOT) 9 U/L (15-37); Alanine Aminotransfer ALT/SGPT 15 U/L (16-61); Albumin, Serum 3.4 g/dL (3.2-5.0); Alkaline Phosphatase 67 U/L (45-117); Bilirubin, Direct 0.24 mg/dL (0.00-0.30); Globulin 3.2 g/dL (2.2-4.2); Protein, Total 6.6 g/dL (6.4-8.2)
[2019-07-01] MEDS: 0.9% Saline Lock 10 ML Syringe IV ×2 (15:45→16:54)
[2019-07-01] MEDS: Furosemide 40 MG/4 ML Vial IV (15:45)
--- NOTE | 2019-07-01 15:45 | CON.PCM_ITS ---
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 (8) History of upper gastrointestinal bleeding Status: Chronic (9) Leukocytosis Status: Chronic (10) Nicotine dependence, cigarettes, uncomplicated Status: Chronic (11) Encounter for screening for lung cancer Status: Acute Comment: Due for screening October 2019 (12) CANDICE (obstructive sleep apnea) Status: Acute Comment: BiPAP 16/12 cm of water with a 2 L/min oxygen bleed (13) Abnormal PFTs (pulmonary function tests) Status: Acute Reason for Consult Date of Consultation: 07/01/19 Reason for Consultation: Anemia History of Present Illness: The patient is a 69 year old M, with past medical history listed below, who presented to [facility] on 07/01/2019 after being directed by his primary care physician's office to seek medical attention following blood work. Patient reportedly presented to his primary care physician for routine office visit yesterday and obtained blood work. Patient's hemoglobin was found to be 5.9 and was directed to the ER. On presentation to the ER, patient was noted to be 85/51 and saturating well on room air. Patient was reportedly pale, but appeared comfortable. Other laboratory work-up was relatively unremarkable. Patient is on Xarelto therapy secondary to A. fib and a mural thrombus. Patient was admitted to the floor with improved blood pressure, but started to become hypoxic. Patient has been given Lasix and is ordered [address] Wil Gómez was reportedly contacted by ER staff and is open to performing endoscopy once Xarelto has been cleared from his system. Patient reports that he has been on Xarelto for quite some time. Patient denies any obvious bleeding sources such as hematochezia, melena, epistaxis or trauma. Patient is not reporting any areas of acute pain. Patient believes he has had an endoscopy before, but is unaware of the provider. Patient is seen in our office for mild COPD and states that he wears 1 L nasal cannula oxygen at night along with a CPAP for obstructive sleep apnea. Patient tends to minimize most of his symptoms, but does report that he has been getting cramps and weakness in his legs for approximately 6 weeks. Patient describes a charley horse in his left calf after 3 minutes of walking and his right leg will give out after that. Patient denies any diarrhea or trauma. Patient has not been initiated on any new medications. Patient had polycythemia in the past, but this was thought to be secondary to hypoxia. Review of systems otherwise negative from a constitutional, HEENT, respiratory, cardiovascular, GI, genitourinary, musculoskeletal, skin, neurologic, psychiatric and hematologic system unless stated above. Past Medical History Past Medical History (Chronic Problems): Chronic Problems (Last Reviewed 12/01/18 @ 09:11 by Thuy Camara) History of COPD (Chronic) History of hypertension (Chronic) History of coronary artery disease (Chronic) History of LV Thrombus (Chronic) Mild aortic stenosis (Chronic) Sleep apnea (Chronic) on Cpap ICD (implantable cardioverter-defibrillator) in place (Chronic) History of upper gastrointestinal bleeding (Chronic) Polycythemia (Chronic) Leukocytosis (Chronic) Nicotine dependence, cigarettes, uncomplicated (Chronic) Medical History: Medical History (Last Reviewed 12/01/18 @ 09:11 by Thuy Camara) Alcohol abuse, 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 Anxiety F41.9 CAD (coronary artery disease) I25.10 COPD (chronic obstructive pulmonary disease) J44.[address] Z95.810 Cataract (lens) fragments in eye following cataract surgery, bilateral H59.023 Cataract, bilateral H26.9 Diabetes mellitus E11.9 Dizziness R42 GERD (gastroesophageal reflux disease) K21.9 Hidradenitis L73.2 Hyperkalemia E87.5 Hyperlipidemia E78.5 Hypertensive heart disease without CHF (congestive heart failure) I11.9 Hypokalemia E87.6 Hypoxemia R09.02 Insomnia G47.00 Leukocytosis D72.829 Rosacea L71.9 SOB (shortness of breath) on exertion R06.02 Vitamin D deficiency E55.9 Allergies amlodipine [From Norvas] Adverse Reaction (Intermediate, Verified 07/01/19 11:41) Rash GENERIC BRAND Home Medications: Ambulatory Orders Medication Instructions Recorded Atorvastatin Calcium [Lipitor] 40 mg PO DAILY 10/17/17 Buspirone HCl [Buspar] 15 mg PO BID 10/17/17 Meclizine HCl [Antivert] 25 - 50 mg PO Q8H PRN PRN 10/17/17 Pantoprazole Sodium [Protonix] 40 mg PO QODAY 10/17/17 Sitagliptin Phosphate [Januvia] 100 mg PO DAILY 10/17/17 Spironolactone [Aldactone] 12.5 mg PO DAILY 10/17/17 rivaroxaban 20 mg tablet 20 mg PO DAILY 03/25/18 clonazepam 1 mg tablet 1 mg PO DAILY tab 11/03/18 ramipril 5 mg capsule 5 mg PO QHS cap 11/03/18 Aspirin [Aspirin EC] 81 mg PO DAILY@1700 07/01/19 Empagliflozin [Jardiance] 10 mg PO DAILY 07/01/19 Fish Oil/Dha/Epa [Fish Oil 1,200 1 ea PO TID 07/01/19 mg Fish Oil] Metformin HCl [Metformin HCl ER] 500 mg PO BID 07/01/19 Metoprolol Succinate [Toprol Xl] 100 mg PO DAILY 07/01/19 Paroxetine HCl 20 mg PO DAILY 07/01/19 Pentoxifylline [Trental] 400 mg PO TID 07/01/19 Surgical History: Surgical History (Last Reviewed 12/01/18 @ 09:11 by Thuy Camara) History of angioplasty Z98.62 History of appendectomy Z90.49 History of heart artery stent Z95.5 Surgical History: appendectomy, - - s/p stents Psychiatric History: No pertinent psych hx Lives: Spouse/ Significant Other Smoking Status: Current every day smoker Tobacco Use: Cigarettes Alcohol: None Drugs: None - *Family History Maternal Family History: Family History (Last Reviewed 12/01/18 @ 09:11 by Thuy Camara) Grandfather Heart disease Father Heart disease History Items: - - t 37yrs from complications related to gallbladder surgery Paternal Family History: Family History (Last Reviewed 12/01/18 @ 09:11 by Thuy Camara) Grandfather Heart disease Father Heart disease History Items: Heart Disease Review of Systems Comment: See HPI - Physical Exam Vitals/I&O's: Vital Signs Temp Pulse Resp BP Pulse Ox 36.6 C 60 17 122/72 H 98 07/01/19 14:46 07/01/19 14:46 07/01/19 14:46 07/01/19 14:46 07/01/19 14:46 Oxygen Delivery Method Room Air Weight: 98.8 kg Body Mass Index (BMI) 30.4 Intake and Output for Last 24 Hours 06/29/19 06/30/19 07/01/19 23:59 23:59 23:59 Intake Total 0 / 0 Balance 0 / 0 General: Alert, Oriented x3, Cooperative, - - Slightly pale appearance. Mild conversational dyspnea. Appears stated age. Obese. HEENT: Atraumatic, PERRLA, EOMI, Normocephalic, - - Pale conjunctive Oral: Moist Mucosa, No Gingival or Mucosal Lesions/ Ulcerations Neck: Supple, No JVD, No Nodes, Trachea Midline Lungs: No rhonchi, No wheeze, Diminished, Rales - Right base, - - Symmetric expansion. No dullness to percussion. Cardiovascular: Normal S1, Normal S2, No murmurs, Irregular Rate, No rub noted, No Gallop Abdomen: Bowel Sounds Present, Soft, Non Tender, Non-Distended, Obese Extremities: No clubbing, No cyanosis, Edema Skin: No rashes, No breakdown Musculoskeletal: No Tenderness to Palpation of Joints or Extremities Lymphatic: No Cervical, Supraclavicular, or Inguinal Adenopathy Neurological: Cranial nerves II-XII grossly intact, Neuro grossly intact, Motor Exam 5/5 strength throughout Psych/Mental Status: Alert and oriented to time, place, person, mood and affect Laboratory Results 07/01/19 12:00: WBC 6.9, RBC 3.11 L, Hgb 5.7 L*, Hct 22.2 L, MCV 71.4 L, MCH 18.3 L, MCHC 25.7 L, RDW Std Deviation 55.5 H, RDW Coeff of Jake 22.0 H, Plt Count 337, MPV 10.0, Differential Comment SCANNED, Diff Path Review November07/01/19 12:00: Sodium 144, Potassium 4.4, Chloride 111 H, Carbon Dioxide 28.0, Anion Gap 5, BUN 25 H, Creatinine 1.25, Estim Creat Clear Calc 57.73, Est GFR (MDRD) Af Amer 73, Est GFR (MDRD) Non-Af 61, BUN/Creatinine Ratio 20.0, Glucose 82, Calcium 8.5 07/01/19 12:00: Blood Type A POSITIVE, Antibody Screen NEGATIVE, Crossmatch See Detail 07/01/19 12:00: Total Bilirubin 0.70, Direct Bilirubin 0.24, AST 9 L, ALT 15 L, Alkaline Phosphatase 67, Total Protein 6.6, Albumin 3.4, Globulin 3.2 07/01/19 15:30: Troponin I Pending Current Medications Acetaminophen (Tylenol) 650 mg PO Q6H PRN PRN PRN Reason: Pain Score 1-3/Temp > 100.7 F Albuterol Sulfate (Ventolin Aerosols) 2.5 mg INHALATION Q2H PRN PRN PRN Reason: SOB/Wheezing Albuterol/Ipratropium (Duoneb) 3 ml INHALATION Q6HWA.RT ESPERANZA Atorvastatin Calcium (Lipitor) 40 mg PO DAILY@2200 ESPERANZA Budesonide (Pulmicort Aerosol) 0.5 mg INHALATION Q12H.RT ESPERANZA Buspirone HCl (Buspar) 15 mg PO BID ESPERANZA Clonazepam (Klonopin) 1 mg PO DAILY ESPERANZA Glucagon () 1 mg IM .X1 PRN PRN Reason: Hypoglycemia Dextrose (Dextrose 10%-Water) 250 mls @ 999 mls/hr IV X1 PRN; Protocol PRN Reason: HYPOGLYCEMIA Insulin Human Lispro (Humalog Kwikpen (Bkc)) 0 unit SC Q6 ESPERANZA; Protocol Nicotine (Nicoderm Cq (Pbkc)) 14 mg TRANSDERM. DAILY ESPERANZA Nicotine Polacrilex (Rugby Nicotine (Bkc)) 2 mg PO Q2H PRN PRN PRN Reason: Nicotine Craving Ondansetron HCl (Zofran) 4 mg IV Q8H PRN PRN PRN Reason: NAUSEA/VOMITING Sodium Chloride () 10 - 40 ml IV UD PRN PRN Reason: SALINE FLUSH Last Admin: 07/01/19 15:45 Dose: 20 ml Documented by: Assessment/Plan RECOMMENDATIONS: 1. Okay to infuse blood at routine speed given hemodynamics 2. Periodic doses of Lasix as necessary for volume overload 3. Endoscopy timing per surgery 4. Okay to repeat H&H in a.m. 5. Wean oxygen as tolerated. Encourage incentive spirometer IMPRESSIONS 1. Severe anemia Drastic drop in hemoglobin compared to baseline of 16 while on anticoagulation. Patient continues to deny any acute blood loss and relatively stable hemodynamics suggest this is a chronic type process. Patient does have a number of units currently planned for infusion. Given normal blood pressures, routine infusions beads can be used. Would recommend iron studies and endoscopy once risks are minimized. If endoscopy is negative, evaluation with erythropoietin levels and possible hematology consult would be appropriate. Patient reportedly had a negative Cologuard test 6 months ago. 2. CANDICE on CPAP therapy/Acute hypoxic respiratory insufficiency Patient should continue with baseline CPAP therapy. Okay to use home machine from my perspective. Will wean supplemental oxygen. Clinical suspicion for an element of pulmonary edema leading to hypoxemia. May require additional doses of Lasix overnight. We will continue to monitor in the intensive care unit. 3. CAD/chronic A. fib/chronic anticoagulation/diabetes mellitus type 2/depression/anxiety/advanced age Complicates care, management, recovery and prognosis. Okay to continue with baseline medications except for aspirin, metoprolol and Xarelto. Beta- kayce may be reinitiated once hemodynamics are more stable and predictable. Sliding scale is reasonable in the interim while p.o. status is questionable. Code Visit Inpatient E&M: 20875 Init Hosp L3
[2019-07-01 17:20] LABS: Bedside Glucose 88 mg/dL (70-110)
[2019-07-01] MEDS: Ipratropium/Albuterol Sulfate 3 ML AMPUL.NEB INHALATION (18:34)
[2019-07-01] MEDS: Budesonide Respules 0.5 MG/2 ML AMPUL.NEB. INHALATION (18:35)
[2019-07-01] MEDS: Atorvastatin Calcium 40 MG Tablet PO (21:01)
[2019-07-01] MEDS: busPIRone 15 MG TABLET PO (21:01)
[2019-07-01 23:56] LABS: Bedside Glucose 75 mg/dL (70-110)
[2019-07-02] VITALS (33 sets, daily range): BP systolic 81–136; BP diastolic 39–74; PULSE 58–78; RESP 12–20; TEMP 36.5–37.1; O2SAT 88–100
[2019-07-02 04:43] LABS: Absolute Lymphocyte Count 1.44 X10^3/uL (0.83-4.51); Basophil# 0.06 X10^3/uL; Basophil% 0.8 % (0-1); Eosinophil# 0.21 X10^3/uL; Eosinophils% 2.7 % (0-5); Hematocrit 31.9 % (40-54); Lymphocyte # 1.44 X10^3/ul (4.0); Lymphocyte % 18.8 % (19-41); Mean Corp Hgb Conc 28.2 g/dL (32-36); Mean Corpuscular Hgb 21.2 pg (27.0-32.0); Mean Corpuscular Volume 75.1 fL (80-94); Mean Platelet Vol. 10.1 fl (6.2-12.0); Monocyte% 11.8 % (0-10); NRBC Flagged by Analyzer 0 % (0-5); Neutrophil # 5.01 X10^3/uL (2.7-7.7); Neutrophil % 65.5 % (47-70); POSITIVE MORPHOLOGY YES; Platelet Count 283 K/mm3 (150-450); RBC Distribution Width CV 22.8 % (11.6-14.6); RBC Distribution Width SD 60.2 fl (35.1-43.9); Red Blood Count 4.25 M/mm3 (4.6-6.2); White Blood Count 7.7 K/mm3 (4.4-11.0)
[2019-07-02 04:45] LABS: Differential Indicated SCAN CRITERIA MET
[2019-07-02 05:06] LABS: AST(SGOT) 12 U/L (15-37); Alanine Aminotransfer ALT/SGPT 18 U/L (16-61); Albumin, Serum 3.1 g/dL (3.2-5.0); Alkaline Phosphatase 68 U/L (45-117); Anion Gap 4 (5-15); BUN 22 mg/dL (7-18); Calcium,Total 8.1 mg/dL (8.5-10.1); Chloride 110 mmol/L (98-107); Creatinine, Serum 1.22 mg/dL (0.70-1.30); EST Glomerular Filtration Rate 62 mL/min (>60); Est Glom Filt Rate - Afr Amer 75 mL/min (>60); Estimated Creatinine Clearance 59.15 ml/min; Globulin 3.1 g/dL (2.2-4.2); Glucose 77 mg/dL (74-106); Protein, Total 6.2 g/dL (6.4-8.2); Sodium Level 145 mmol/L (136-145)
[2019-07-02 05:29] LABS: Differential Comment SCANNED; Hypochromasia 2+; Microcytosis 3+; Schistocytes RARE; Target Cells 2+
--- NOTE | 2019-07-02 08:13 | PN_ITS ---
Subjective: Patient did well overnight. No acute issues were reported. Patient was compliant with home noninvasive therapy for obstructive sleep apnea. Patient is still requiring 3 L nasal cannula to maintain saturations. No obvious bleeding has been reported by nursing. General: Alert, Oriented x3, Cooperative, No apparent distress, Well developed, Well nourished, - - Better color today. No conversational dyspnea. HEENT: Atraumatic, PERRLA, EOMI, Normocephalic, - - No scleral icterus or injection noted Oral: Moist Mucosa, No Gingival or Mucosal Lesions/ Ulcerations Neck: Supple, No JVD, No Nodes, Trachea Midline Lungs: No rhonchi, No wheeze, Diminished, Rales - Right base, - - Symmetric expansion Cardiovascular: Normal S1, Normal S2, No murmurs, Irregular Rate, No rub noted, No Gallop Abdomen: Bowel Sounds Present, Soft, Non Tender, Non-Distended, Obese Extremities: No cyanosis, Capillary Refill Less than 3 Seconds, Edema Skin: No rashes, No breakdown Musculoskeletal: No Tenderness to Palpation of Joints or Extremities Lymphatic: No Cervical, Supraclavicular, or Inguinal Adenopathy Neurological: Cranial nerves II-XII grossly intact, Neuro grossly intact, Motor Exam 5/5 strength throughout Psych/Mental Status: Alert and oriented to time, place, person, mood and affect Vital Signs Temp Pulse Resp BP Pulse Ox 36.6 C 63 13 110/64 91 07/02/19 04:00 07/02/19 06:00 07/02/19 06:00 07/02/19 06:00 07/02/19 06:00 Oxygen Flow Rate (L/min) 3 Oxygen Delivery Method Nasal Cannula Weight: 98.5 kg Body Mass Index (BMI) 30.4 Intake and Output for Last 24 Hours 06/30/19 07/01/19 07/02/19 23:59 23:59 23:59 Intake Total 1826 / 1826 800 / 800 Output Total 2900 / 2900 800 / 800 Balance -1074 / -1074 0 / 0 Labs (Last 48 Hours) 07/01/19 07/01/19 07/01/19 12:00 12:00 12:00 WBC 6.9 RBC 3.11 L Hgb 5.7 L* Hct 22.2 L MCV 71.4 L MCH 18.3 L MCHC 25.7 L RDW Std Deviation 55.5 H RDW Coeff of Jake 22.0 H Plt Count 337 MPV 10.0 Immature Gran % (Auto) Neut % (Auto) Lymph % (Auto) [place] % (Auto) Eos % (Auto) Baso % (Auto) Absolute Neuts (auto) Absolute Lymphs (auto) Nucleated RBC % Differential Comment SCANNED Diff Path Review May foll Hypochromasia Microcytosis Target Cells Schistocytes Sodium 144 Potassium 4.4 Chloride 111 H Carbon Dioxide 28.0 Anion Gap 5 BUN 25 H Creatinine 1.25 Estim Creat Clear Calc 57.73 Est GFR (MDRD) Af Amer 73 Est GFR (MDRD) Non-Af 61 BUN/Creatinine Ratio 20.0 Glucose 82 Calcium 8.5 Total Bilirubin Direct Bilirubin AST ALT Alkaline Phosphatase Troponin I 0.016 Total Protein Albumin Globulin Albumin/Globulin Ratio POC Glucose Blood Type A POSITIVE Antibody Screen NEGATIVE Crossmatch See Detail 07/01/19 07/01/19 07/01/19 12:00 15:30 16:52 WBC RBC Hgb Hct MCV MCH MCHC RDW Std Deviation RDW Coeff of Jake Plt Count MPV Immature Gran % (Auto) Neut % (Auto) Lymph % (Auto) [place] % (Auto) Eos % (Auto) Baso % (Auto) Absolute Neuts (auto) Absolute Lymphs (auto) Nucleated RBC % Differential Comment Diff Path Review Hypochromasia Microcytosis Target Cells Schistocytes Sodium Potassium Chloride Carbon Dioxide Anion Gap BUN Creatinine Estim Creat Clear Calc Est GFR (MDRD) Af Amer Est GFR (MDRD) Non-Af BUN/Creatinine Ratio Glucose Calcium Total Bilirubin 0.70 Direct Bilirubin 0.24 AST 9 L ALT 15 L Alkaline Phosphatase 67 Troponin I < 0.015 Total Protein 6.6 Albumin 3.4 Globulin 3.2 Albumin/Globulin Ratio POC Glucose 88 Blood Type Antibody Screen Crossmatch 07/01/19 07/01/19 07/02/19 18:00 23:52 04:40 WBC 7.7 RBC 4.25 L Hgb 9.0 L Hct 31.9 L MCV 75.1 L D MCH 21.2 L MCHC 28.2 L RDW Std Deviation 60.2 H RDW Coeff of Jake 22.8 H Plt Count 283 MPV 10.1 Immature Gran % (Auto) 0.400 Neut % (Auto) 65.5 Lymph % (Auto) 18.8 L [place] % (Auto) 11.8 H Eos % (Auto) 2.7 Baso % (Auto) 0.8 Absolute Neuts (auto) 5.0 Absolute Lymphs (auto) 1.44 Nucleated RBC % 0 Differential Comment SCANNED Diff Path Review Hypochromasia 2+ Microcytosis 3+ Target Cells 2+ Schistocytes RARE Sodium Potassium Chloride Carbon Dioxide Anion Gap BUN Creatinine Estim Creat Clear Calc Est GFR (MDRD) Af Amer Est GFR (MDRD) Non-Af BUN/Creatinine Ratio Glucose Calcium Total Bilirubin Direct Bilirubin AST ALT Alkaline Phosphatase Troponin I < 0.015 Total Protein Albumin Globulin Albumin/Globulin Ratio POC Glucose 75 Blood Type Antibody Screen Crossmatch 07/02/19 04:40 WBC RBC Hgb Hct MCV MCH MCHC RDW Std Deviation RDW Coeff of Jake Plt Count MPV Immature Gran % (Auto) Neut % (Auto) Lymph % (Auto) [place] % (Auto) Eos % (Auto) Baso % (Auto) Absolute Neuts (auto) Absolute Lymphs (auto) Nucleated RBC % Differential Comment Diff Path Review Hypochromasia Microcytosis Target Cells Schistocytes Sodium 145 Potassium 4.0 Chloride 110 H Carbon Dioxide 31.0 Anion Gap 4 L BUN 22 H Creatinine 1.22 Estim Creat Clear Calc 59.15 Est GFR (MDRD) Af Amer 75 Est GFR (MDRD) Non-Af 62 BUN/Creatinine Ratio 18.0 Glucose 77 Calcium 8.1 L Total Bilirubin 1.50 H Direct Bilirubin AST 12 L ALT 18 Alkaline Phosphatase 68 Troponin I Total Protein 6.2 L Albumin 3.1 L Globulin 3.1 Albumin/Globulin Ratio 1.0 POC Glucose Blood Type Antibody Screen Crossmatch Clinical Impression(s) from Imaging Studies Abdomen/Pelvis CT 07/01/19 15:15 IMPRESSION: 1. Marked distention of the urinary bladder and bilateral renal collecting systems on to be due to outlet obstruction from prostatic enlargement. 2. Colonic diverticulosis without acute inflammatory change. 3. Renal and hepatic cysts. 4. Small bilateral pleural effusions and atelectasis. 5. Cardiomegaly with cardiac pacemaker. 6. Ectatic atherosclerotic aorta. 7. Degenerative changes of the lumbar spine. Electronically Signed: Jose Lujan DO at 17:55 EST Tel [phone], Service support , Medical Necessity - Tobacco Use Smoking Status: Current every day smoker Tobacco Use: Cigarettes Assessment/Plan All Active Problems (Last Reviewed 12/01/18 @ 09:11 by Thuy Camara) Encounter for screening for lung cancer (Acute) CANDICE (obstructive sleep apnea) (Acute) Abnormal PFTs (pulmonary function tests) (Acute) RECOMMENDATIONS: 1. Dose with Lasix this morning 2. Okay to leave the intensive care unit from my perspective 3. Endoscopy timing per surgery 4. Repeat H&H q. 24 given lack of clinical bleeding 5. Wean oxygen as tolerated. Encourage incentive spirometer 6. Hemodynamically stable on room air. Will sign off from a critical care perspective IMPRESSIONS 1. Severe anemia Drastic drop in hemoglobin compared to baseline of 16 while on anticoagulation. Patient continues to deny any acute blood loss and relatively stable hemodynamics suggest this is a chronic type process. Patient has tolerated 4 units of packed red blood cell with appropriate incrementation. Iron studies will likely not be accurate at this time. If endoscopy is negative, evaluation with erythropoietin levels and possible hematology consult would be appropriate. Patient reportedly had a negative Cologuard test 6 months ago. 2. CANDICE on CPAP therapy/Acute hypoxic respiratory insufficiency Patient should continue with baseline CPAP therapy. Okay to use home machine from my perspective. Will wean supplemental oxygen. Clinical suspicion for an element of pulmonary edema leading to hypoxemia. Will dose with Lasix this morning. Okay to leave the intensive care unit from my perspective 3. CAD/chronic A. fib/chronic anticoagulation/diabetes mellitus type 2/depression/anxiety/advanced age Complicates care, management, recovery and prognosis. Okay to continue with baseline medications except for aspirin, metoprolol and Xarelto. Beta- kayce may be reinitiated once hemodynamics are more stable and predictable. Sliding scale is reasonable in the interim while p.o. status is questionable. Code Visit Inpatient E&M: 00234 Subs Hosp L2
--- NOTE | 2019-07-02 09:14 | PCM.PROGNOTE ---
Subjective: Chief complaint: Follow-up after mission for acute severe anemia. Patient seen and examined. No acute events overnight. He denied any significant complaints. He is on 3 L of oxygen after receiving 4 L of packed RBCs. Other vital signs are stable, afebrile. - Physical Exam Vitals/I&O's: Vital Signs Temp Pulse Resp BP Pulse Ox 97.8 F 63 13 110/64 91 07/02/19 04:00 07/02/19 06:00 07/02/19 06:00 07/02/19 06:00 07/02/19 06:00 Oxygen Flow Rate (L/min) 3 Oxygen Delivery Method Nasal Cannula Weight: 217 lb 2.485 oz Body Mass Index (BMI) 30.4 Intake and Output for Last 24 Hours 06/30/19 07/01/19 07/02/19 23:59 23:59 23:59 Intake Total 1826 / 1826 800 / 800 Output Total 2900 / 2900 800 / 800 Balance -1074 / -1074 0 / 0 General: Alert, Oriented x3, Cooperative, No apparent distress HEENT: Atraumatic, PERRLA, EOMI, Normocephalic Oral: Moist Mucosa, No Gingival or Mucosal Lesions/ Ulcerations Neck: Supple, No JVD, Negative Carotid Bruits, Trachea Midline, Thyroid Normal Size and Texture Lungs: Clear to auscultation, No wheeze, No rales, Diminished, Rhonchi Cardiovascular: Normal S1, Normal S2, PMI Normal, Irregular Rate Abdomen: Bowel Sounds Present, Soft, Non Tender, Non-Distended, No Hepato-splenomegaly Extremities: No clubbing, No cyanosis, No edema Skin: No rashes, No breakdown Lymphatic: No Cervical, Supraclavicular, or Inguinal Adenopathy Neurological: Cranial nerves II-XII grossly intact, Motor Exam 5/5 strength throughout Psych/Mental Status: Normal Affect, Appropriate, Alert and oriented to time, place, person, mood and affect Laboratory Results 07/01/19 12:00: WBC 6.9, RBC 3.11 L, Hgb 5.7 L*, Hct 22.2 L, MCV 71.4 L, MCH 18.3 L, MCHC 25.7 L, RDW Std Deviation 55.5 H, RDW Coeff of Jake 22.0 H, Plt Count 337, MPV 10.0, Differential Comment SCANNED, Diff Path Review November07/01/19 12:00: Sodium 144, Potassium 4.4, Chloride 111 H, Carbon Dioxide 28.0, Anion Gap 5, BUN 25 H, Creatinine 1.25, Estim Creat Clear Calc 57.73, Est GFR (MDRD) Af Amer 73, Est GFR (MDRD) Non-Af 61, BUN/Creatinine Ratio 20.0, Glucose 82, Calcium 8.5, Troponin I 0.016 07/01/19 12:00: Blood Type A POSITIVE, Antibody Screen NEGATIVE, Crossmatch See Detail 07/01/19 12:00: Total Bilirubin 0.70, Direct Bilirubin 0.24, AST 9 L, ALT 15 L, Alkaline Phosphatase 67, Total Protein 6.6, Albumin 3.4, Globulin 3.2 07/01/19 15:30: Troponin I < 0.015 07/01/19 16:52: POC Glucose 88 07/01/19 18:00: Troponin I < 0.015 07/01/19 23:52: POC Glucose 75 07/02/19 04:40: WBC 7.7, RBC 4.25 L, Hgb 9.0 L, Hct 31.9 L, MCV 75.1 L D, MCH 21.2 L, MCHC 28.2 L, RDW Std Deviation 60.2 H, RDW Coeff of Jake 22.8 H, Plt Count 283, MPV 10.1, Immature Gran % (Auto) 0.400, Neut % (Auto) 65.5, Lymph % (Auto) 18.8 L, Hancock % (Auto) 11.8 H, Eos % (Auto) 2.7, Baso % (Auto) 0.8, Absolute Neuts (auto) 5.0, Absolute Lymphs (auto) 1.44, Nucleated RBC % 0, Differential Comment SCANNED, Hypochromasia 2+, Microcytosis 3+, Target Cells 2+, Schistocytes RARE 07/02/19 04:40: Sodium 145, Potassium 4.0, Chloride 110 H, Carbon Dioxide 31.0, Anion Gap 4 L, BUN 22 H, Creatinine 1.22, Estim Creat Clear Calc 59.15, Est GFR (MDRD) Af Amer 75, Est GFR (MDRD) Non-Af 62, BUN/Creatinine Ratio 18.0, Glucose 77, Calcium 8.1 L, Total Bilirubin 1.50 H, AST 12 L, ALT 18, Alkaline Phosphatase 68, Total Protein 6.2 L, Albumin 3.1 L, Globulin 3.1, Albumin/Globulin Ratio 1.0 Clinical Impression(s) from Imaging Studies Abdomen/Pelvis CT 07/01/19 15:15 IMPRESSION: 1. Marked distention of the urinary bladder and bilateral renal collecting systems on to be due to outlet obstruction from prostatic enlargement. 2. Colonic diverticulosis without acute inflammatory change. 3. Renal and hepatic cysts. 4. Small bilateral pleural effusions and atelectasis. 5. Cardiomegaly with cardiac pacemaker. 6. Ectatic atherosclerotic aorta. 7. Degenerative changes of the lumbar spine. Electronically Signed: Jose Lujan DO at 17:55 EST Tel [phone], Service support , Current Medications Acetaminophen (Tylenol) 650 mg PO Q6H PRN PRN PRN Reason: Pain Score 1-3/Temp > 100.7 F Albuterol Sulfate (Ventolin Aerosols) 2.5 mg INHALATION Q2H PRN PRN PRN Reason: SOB/Wheezing Albuterol/Ipratropium (Duoneb) 3 ml INHALATION Q6HWA.RT [facility] Last Admin: 07/02/19 07:00 Dose: Not Given Documented by: Atorvastatin Calcium (Lipitor) 40 mg PO DAILY@2200 [facility] Last Admin: 07/01/19 21:01 Dose: 40 mg Documented by: Budesonide (Pulmicort Aerosol) 0.5 mg INHALATION Q12H.RT [facility] Last Admin: 07/02/19 07:00 Dose: Not Given Documented by: Buspirone HCl (Buspar) 15 mg PO BID [facility] Last Admin: 07/01/19 21:01 Dose: 15 mg Documented by: Clonazepam (Klonopin) 1 mg PO DAILY [facility] Glucagon () 1 mg IM .X1 PRN PRN Reason: Hypoglycemia Dextrose (Dextrose 10%-Water) 250 mls @ 999 mls/hr IV X1 PRN; Protocol PRN Reason: HYPOGLYCEMIA Pantoprazole Sodium 40 mg/ (Sodium Chloride) 110 mls @ 330 mls/hr IV Q12 [facility] Last Infusion: 07/01/19 21:21 Dose: Infused Documented by: Insulin Human Lispro (Humalog Kwikpen (Bkc)) 0 unit SC Q6 [facility]; Protocol Last Admin: 07/02/19 06:33 Dose: Not Given Documented by: Nicotine (Nicoderm Cq (kc)) 14 mg TRANSDERM. DAILY [facility] Last Admin: 07/01/19 16:54 Dose: 14 mg Documented by: Nicotine Polacrilex (Rugby Nicotine (Bk)) 2 mg PO Q2H PRN PRN PRN Reason: Nicotine Craving Ondansetron HCl (Zofran) 4 mg IV Q8H PRN PRN PRN Reason: NAUSEA/VOMITING Sodium Chloride () 10 - 40 ml IV UD PRN PRN Reason: SALINE FLUSH Last Admin: 07/01/19 16:54 Dose: 10 ml Documented by: Medical Necessity - Tobacco Use Smoking Status: Current every day smoker Tobacco Use: Cigarettes Assessment/Plan This is a 69 years old male patient was sent to the emergency department by his PCPs office for very low hemoglobin, was admitted for acute severe anemia of uncertain etiology. #1 acute severe anemia: It is isolated normocytic anemia. All other cell lines are normal. Admission hemoglobin was 5.7 g/dL, received total of 4 weeks of packed RBCs, today's hemoglobin is 9 g/dL. WBC and platelet count are normal. Patient had a history of polycythemia and most recent hemoglobin his chart was from February, and it was 16.8 g/dL. Patient was on Xarelto for chronic A. fib. Denied any active bleeding, no epistaxis, hemoptysis, hematuria, hematemesis, hematochezia or melena. EKG revealed paced rhythm, no acute changes. Troponin was negative. CT scan abdomen and pelvis with contrast revealed bladder distention, prostatic enlargement, diverticulosis, other chronic findings reviewed, no acute findings. Patient is hemodynamically stable, requiring some oxygen. He is receiving IV Lasix x1. He is on IV Protonix twice daily. General surgery consulted. Stool for occult blood ordered. Plan: If patient remains stable, plan to transfer to PCU today, check pro time and INR. #2 chronic atrial fibrillation: Status post pacemaker. Rate is controlled, blood pressure stable. Metoprolol and Xarelto on hold. #3 CAD status post stents: Stable, no acute issues. No chest pain, troponin is negative. Continue statins, keep holding ramipril, metoprolol and aspirin as well as Xarelto. #4 COPD: Patient is requiring 3 L of oxygen after blood transfusion. He denies any worsening shortness of breath. He received 1 dose of IV Lasix. Continue DuoNeb, Pulmicort and albuterol PRN. #5 type 2 diabetes mellitus: Blood sugar stable, continue sliding scale. Metformin, Jardiance and Januvia held. #6 hypertension: Blood pressure stabilized, antihypertensive medications held as above. #7 obstructive sleep apnea: Patient has been on BiPAP at home, continue. #8 anxiety/depression: Xanax and BuSpar held. #9 DVT prophylaxis, SCDs. This note was generated with [employer]ario dictation software. It may contain incorrect words, spelling, and punctuation that were not noted in checking the note before signing. Code Visit Inpatient E&M: 48151 Subs Hosp L2
[2019-07-02] MEDS: Ipratropium/Albuterol Sulfate 3 ML AMPUL.NEB INHALATION ×3 (09:26→20:16)
[2019-07-02] MEDS: Budesonide Respules 0.5 MG/2 ML AMPUL.NEB. INHALATION ×2 (09:26→20:16)
[2019-07-02] MEDS: Furosemide 40 MG/4 ML Vial IV (09:39)
[2019-07-02] MEDS: busPIRone 15 MG TABLET PO ×2 (09:40→23:10)
[2019-07-02] MEDS: Paroxetine 20 MG Tablet PO (09:43)
[2019-07-02 10:12] LABS: International Normalized Ratio 1.4; Prothrombin Time (Protime)PT. 16.7 SECONDS (11.7-14.9)
--- NOTE | 2019-07-02 10:21 | CASEMGMT ---
RN CM Assessment Presentation: [facility] Intro role of CM and purpose of RN CM assessment to patient and his family. Pt is awake alert and able to participate in assessment. Demographics, PCP and Pharmacy verified. Pt states he is independent @ home, no care needs. PCP: Dr. Kellogg Specialists: Dr. Ivory Preferred Pharmacy: [facility] Insurance: [facility] Prescription Benefit: yes LNOK: Salvador Avelar Living Arrangements: Lives in one story home with . States no care needs prior to admission. Transportation: Drives or family can assist with transportation DME: Rollator, Cpap, Oxygen 2L @ night bleed in with Cpap through [facility]. Call to [facility]- script is written for 2L NC @ night. Pt has concentrator, no portability. If continuous home oxygen would be recommended, pt will need Home oxygen testing and new script faxed to [facility]. HHC/SNF: no Patient DC goals: Home DC PLAN: Home. May need Home Oxygen testing prior to admission. Julianna GARLANDN RN ACM
--- NOTE | 2019-07-02 10:49 | CASEMGMT ---
Pt had informed admitting RN that he has POA/LW forms, cannot bring them in. He had indicated Jing is POA. ARTURO Mckeon
[2019-07-02 12:21] LABS: Bedside Glucose 94 mg/dL (70-110)
--- NOTE | 2019-07-02 12:49 | PCM.CONS.GEN ---
Problem List (1) Anemia Status: Acute Qualifiers: Anemia type: unspecified type Qualified Code(s): D64.9 - Anemia, unspecified Reason for Consult Date of Consultation: 07/02/19 Reason for Consultation: Anemia History of Present Illness: The patient is a 69 year old M presented with fatigue. He has acute anemia with a hemoglobin below 6. He normally has an elevated red blood cell count. He has never been anemic in the past. He reports no gross blood in his stool. He reports that he has never had a colonoscopy. He is never had an EGD. He has no abdominal pain. He reports no black stools. Past Medical History Past Medical History (Chronic Problems): Chronic Problems (Last Updated 07/02/19 @ 08:27 by Karl Martinez MD) Hypertension (Chronic) Coronary artery disease (Chronic) COPD (chronic obstructive pulmonary disease) (Chronic) History of LV Thrombus (Chronic) Mild aortic stenosis (Chronic) Sleep apnea (Chronic) on Cpap ICD (implantable cardioverter-defibrillator) in place (Chronic) History of upper gastrointestinal bleeding (Chronic) Polycythemia (Chronic) Abnormal PFTs (pulmonary function tests) (Chronic) CANDICE (obstructive sleep apnea) (Chronic) BiPAP 16/12 cm of water with a 2 L/min oxygen bleed Nicotine dependence, cigarettes, uncomplicated (Chronic) Medical History: Medical History (Last Updated 07/02/19 @ 08:27 by Karl Martinez MD) Alcohol abuse, 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 Anxiety F41.9 CAD (coronary artery disease) I25.10 COPD (chronic obstructive pulmonary disease) J44.[address] Z95.810 Cataract, bilateral H26.9 Diabetes mellitus E11.9 GERD (gastroesophageal reflux disease) K21.9 Hidradenitis L73.2 Hyperlipidemia E78.5 Insomnia G47.00 Rosacea L71.9 Vitamin D deficiency E55.9 Allergies amlodipine [From [facility]] Adverse Reaction (Intermediate, Verified 07/01/19 11:41) Rash GENERIC BRAND Home Medications: Ambulatory Orders Medication Instructions Recorded Atorvastatin Calcium [Lipitor] 40 mg PO DAILY 10/17/17 Buspirone HCl [Buspar] 15 mg PO BID 10/17/17 Meclizine HCl [Antivert] 25 - 50 mg PO Q8H PRN PRN 10/17/17 Pantoprazole Sodium [Protonix] 40 mg PO QODAY 10/17/17 Sitagliptin Phosphate [Januvia] 100 mg PO DAILY 10/17/17 Spironolactone [Aldactone] 12.5 mg PO DAILY 10/17/17 rivaroxaban 20 mg tablet 20 mg PO DAILY 03/25/18 clonazepam 1 mg tablet 1 mg PO DAILY tab 11/03/18 ramipril 5 mg capsule 5 mg PO QHS cap 11/03/18 Aspirin [Aspirin EC] 81 mg PO DAILY@1700 07/01/19 Empagliflozin [Jardiance] 10 mg PO DAILY 07/01/19 Fish Oil/Dha/Epa [Fish Oil 1,200 1 ea PO TID 07/01/19 mg Fish Oil] Metformin HCl [Metformin HCl ER] 500 mg PO BID 07/01/19 Metoprolol Succinate [Toprol Xl] 100 mg PO DAILY 07/01/19 Paroxetine HCl 20 mg PO DAILY 07/01/19 Pentoxifylline [Trental] 400 mg PO TID 07/01/19 Surgical History: Surgical History (Last Updated 07/02/19 @ 08:27 by Karl Martinez MD) History of angioplasty Z98.62 History of appendectomy Z90.49 Surgical History: appendectomy, - - s/p stents Psychiatric History: No pertinent psych hx Lives: Spouse/ Significant Other Smoking Status: Current every day smoker Tobacco Use: Cigarettes Alcohol: None Drugs: None - *Family History Maternal Family History: Family History (Last Reviewed 12/01/18 @ 09:11 by Thuy Camara) Grandfather Heart disease Father Heart disease History Items: - - t 37yrs from complications related to gallbladder surgery Paternal Family History: Family History (Last Reviewed 12/01/18 @ 09:11 by Thuy Camara) Grandfather Heart disease Father Heart disease History Items: Heart Disease Review of Systems Constitutional: Denies: Anorexia, Fever HEENT: Denies: Difficulty Swallowing Cardiovascular: Denies: Chest Pain Respiratory: Denies: Cough, Hemoptysis Gastrointestinal: Denies: Abdominal Pain, Hematemesis, Hematochezia, Nausea, Melena, Vomiting Genitourinary: Denies: Incontinence Neurological: Denies: Balance problems Patient Problems: Active and Suspected Problems (Last Updated 07/02/19 @ 08:27 by Karl Martinez MD) Anemia (Acute) - Physical Exam Vitals/I&O's: Vital Signs Temp Pulse Resp BP Pulse Ox 98.2 F 69 16 114/67 94 07/02/19 11:48 07/02/19 11:52 07/02/19 11:48 07/02/19 11:48 07/02/19 11:48 Oxygen Flow Rate (L/min) 2 Oxygen Delivery Method Room Air Weight: 217 lb 2.485 oz Body Mass Index (BMI) 30.4 Orthostatic Vital Signs Start: 07/02/19 09:44 Freq: q24h Status: Active Protocol: Activity Type Activity Date Activity User E-Sign Co-Sign Detail Recorded Client Recorded Date Recorded By Document 07/02/19 09:44 KYE [id number] 07/02/19 10:26 KYE 07/02/19 09:44 Orthostatic Vitals Standing -Blood Pressure (90/60-120/80) 104/67 -Extremity Use Right Arm -Pulse Rate (60-100) 66 Sitting -Blood Pressure (90/60-120/80) 103/63 -Extremity Use Right Arm -Pulse Rate (60-100) 67 Lying -Blood Pressure (90/60-120/80) 108/55 L -Extremity Use Right Arm -Pulse Rate (60-100) 63 Intake and Output for Last 24 Hours 06/30/19 07/01/19 07/02/19 23:59 23:59 23:59 Intake Total 1826 / 1826 1030 / 1030 Output Total 2900 / 2900 800 / 800 Balance -1074 / -1074 230 / 230 General: Alert, Oriented x3 Neck: No JVD Lungs: Normal air movement Cardiovascular: Regular rate, Regular Rhythm Abdomen: Soft, Non Tender, Non-Distended Extremities: No clubbing Skin: No rashes Musculoskeletal: No Muscle Wasting Neurological: Cranial nerves II-XII grossly intact Psych/Mental Status: Normal Affect Laboratory Results 07/01/19 12:00: WBC 6.9, RBC 3.11 L, Hgb 5.7 L*, Hct 22.2 L, MCV 71.4 L, MCH 18.3 L, MCHC 25.7 L, RDW Std Deviation 55.5 H, RDW Coeff of Jake 22.0 H, Plt Count 337, MPV 10.0, Differential Comment SCANNED, Diff Path Review November07/01/19 12:00: Sodium 144, Potassium 4.4, Chloride 111 H, Carbon Dioxide 28.0, Anion Gap 5, BUN 25 H, Creatinine 1.25, Estim Creat Clear Calc 57.73, Est GFR (MDRD) Af Amer 73, Est GFR (MDRD) Non-Af 61, BUN/Creatinine Ratio 20.0, Glucose 82, Calcium 8.5, Troponin I 0.016 07/01/19 12:00: Blood Type A POSITIVE, Antibody Screen NEGATIVE, Crossmatch See Detail 07/01/19 12:00: Total Bilirubin 0.70, Direct Bilirubin 0.24, AST 9 L, ALT 15 L, Alkaline Phosphatase 67, Total Protein 6.6, Albumin 3.4, Globulin 3.2 07/01/19 15:30: Troponin I < 0.015 07/01/19 16:52: POC Glucose 88 07/01/19 18:00: Troponin I < 0.015 07/01/19 23:52: POC Glucose 75 07/02/19 04:40: WBC 7.7, RBC 4.25 L, Hgb 9.0 L, Hct 31.9 L, MCV 75.1 L D, MCH 21.2 L, MCHC 28.2 L, RDW Std Deviation 60.2 H, RDW Coeff of Jake 22.8 H, Plt Count 283, MPV 10.1, Immature Gran % (Auto) 0.400, Neut % (Auto) 65.5, Lymph % (Auto) 18.8 L, Taney % (Auto) 11.8 H, Eos % (Auto) 2.7, Baso % (Auto) 0.8, Absolute Neuts (auto) 5.0, Absolute Lymphs (auto) 1.44, Nucleated RBC % 0, Differential Comment SCANNED, Hypochromasia 2+, Microcytosis 3+, Target Cells 2+, Schistocytes RARE 07/02/19 04:40: Sodium 145, Potassium 4.0, Chloride 110 H, Carbon Dioxide 31.0, Anion Gap 4 L, BUN 22 H, Creatinine 1.22, Estim Creat Clear Calc 59.15, Est GFR (MDRD) Af Amer 75, Est GFR (MDRD) Non-Af 62, BUN/Creatinine Ratio 18.0, Glucose 77, Calcium 8.1 L, Total Bilirubin 1.50 H, AST 12 L, ALT 18, Alkaline Phosphatase 68, Total Protein 6.2 L, Albumin 3.1 L, Globulin 3.1, Albumin/Globulin Ratio 1.0 07/02/19 09:55: PT 16.7 H, INR 1.4, APTT 32.0 07/02/19 12:11: POC Glucose 94 Current Medications Acetaminophen (Tylenol) 650 mg PO Q6H PRN PRN PRN Reason: Pain Score 1-3/Temp > 100.7 F Albuterol Sulfate (Ventolin Aerosols) 2.5 mg INHALATION Q2H PRN PRN PRN Reason: SOB/Wheezing Albuterol/Ipratropium (Duoneb) 3 ml INHALATION Q6HWA.RT [facility] Last Admin: 07/02/19 09:26 Dose: 3 ml Documented by: Atorvastatin Calcium (Lipitor) 40 mg PO DAILY@2200 [facility] Last Admin: 07/01/19 21:01 Dose: 40 mg Documented by: Budesonide (Pulmicort Aerosol) 0.5 mg INHALATION Q12H.RT [facility] Last Admin: 07/02/19 09:26 Dose: 0.5 mg Documented by: Buspirone HCl (Buspar) 15 mg PO BID [facility] Last Admin: 07/02/19 09:40 Dose: 15 mg Documented by: Clonazepam (Klonopin) 1 mg PO DAILY [facility] Last Admin: 07/02/19 09:39 Dose: Not Given Documented by: Glucagon () 1 mg IM .X1 PRN PRN Reason: Hypoglycemia Dextrose (Dextrose 10%-Water) 250 mls @ 999 mls/hr IV X1 PRN; Protocol PRN Reason: HYPOGLYCEMIA Pantoprazole Sodium 40 mg/ (Sodium Chloride) 110 mls @ 330 mls/hr IV Q12 [facility] Last Infusion: 07/02/19 10:14 Dose: Infused Documented by: Insulin Human Lispro (Humalog Kwikpen (Bkc)) 0 unit SC Q6 [facility]; Protocol Last Admin: 07/02/19 12:13 Dose: Not Given Documented by: Nicotine (Nicoderm Cq (Pbkc)) 14 mg TRANSDERM. DAILY [facility] Last Admin: 07/02/19 09:40 Dose: 14 mg Documented by: Nicotine Polacrilex (Rugby Nicotine (Bkc)) 2 mg PO Q2H PRN PRN PRN Reason: Nicotine Craving Ondansetron HCl (Zofran) 4 mg IV Q8H PRN PRN PRN Reason: NAUSEA/VOMITING Paroxetine HCl (Paxil) 20 mg PO DAILY [facility] Last Admin: 07/02/19 09:43 Dose: 20 mg Documented by: Sodium Chloride () 10 - 40 ml IV UD PRN PRN Reason: SALINE FLUSH Last Admin: 07/01/19 16:54 Dose: 10 ml Documented by: Assessment/Plan All Active Problems (Last Updated 07/02/19 @ 08:27 by Karl Martinez MD) Anemia (Acute) 69-year-old male with anemia The patient was severely anemic on presentation. He has not noted any gross blood loss. He has never had a colonoscopy. He has no family history of colon cancer. The patient was transfused and his hemoglobin is now 9. If he is stable and discharged over the weekend I asked him to follow-up with me early in the week and I will plan on EGD and colonoscopy near the end of the week next week. If he is still here over the weekend and his hemoglobin is not stable I will plan on bowel prep Friday and upper and lower scope Friday. I explained endoscopy in detail to the patient. I explained the risks including but not limited to stroke or heart attack with anesthesia, perforation of the GI tract, bleeding, infection. I explained that any of these could necessitate further emergency surgery. The patient understands and all questions were answered sufficiently. The patient wishes to proceed with procedure. Aime Aly MD Pager: [facility] [address] [place] [address], [address] [place] [address] Office:
[2019-07-02 13:08] LABS: Pathologist Review Reviewed
[2019-07-02 15:58] LABS: Hematocrit 31.5 % (40-54)
[2019-07-02 17:08] LABS: Magnesium 2.3 mg/dL (1.6-2.6)
[2019-07-02 18:01] LABS: Bedside Glucose 126 mg/dL (70-110)
--- NOTE | 2019-07-02 20:02 | NURSING ---
NOTIFIED DR. DAVILA THAT PATIENT'S SLIDING SCALE INSULIN IS STILL ORDERED Q6H WHILE HIS BLOOD GLUCOSE MONITORING IS ACHS. PATIENT WAS NPO AND NOW HAS A DIET ORDER. DR. DAVILA STATES OK TO CHANGE INSULIN FREQUENCY TO ACHS TO MATCH BGM.
[2019-07-02] MEDS: Atorvastatin Calcium 40 MG Tablet PO (23:10)
[2019-07-02] MEDS: 0.9% Saline Lock 10 ML Syringe IV (23:16)
[2019-07-03] VITALS (15 sets, daily range): BP systolic 79–114; BP diastolic 45–69; PULSE 59–81; RESP 15–18; TEMP 36.3–37; O2SAT 85–98
[2019-07-03 01:46] LABS: Bedside Glucose 99 mg/dL (70-110)
[2019-07-03 06:50] LABS: Bedside Glucose 84 mg/dL (70-110)
[2019-07-03] MEDS: Budesonide Respules 0.5 MG/2 ML AMPUL.NEB. INHALATION (07:18)
[2019-07-03] MEDS: Ipratropium/Albuterol Sulfate 3 ML AMPUL.NEB INHALATION (07:18)
[2019-07-03] MEDS: busPIRone 15 MG TABLET PO (08:08)
[2019-07-03] MEDS: Paroxetine 20 MG Tablet PO (08:08)
[2019-07-03] MEDS: 0.9% Saline Lock 10 ML Syringe IV ×2 (08:09→10:18)
[2019-07-03] MEDS: Furosemide 20 MG/2 ML VIAL IV (08:09)
[2019-07-03 08:15] LABS: Absolute Neutrophil Count 5.3 X10^3/uL (2.0-7.7); Basophil# 0.06 X10^3/uL; Basophil% 0.8 % (0-1); Eosinophil# 0.16 X10^3/uL; Eosinophils% 2.1 % (0-5); Hematocrit 29.7 % (40-54); Hemoglobin 8.4 g/dL (13.0-16.5); Lymphocyte % 14.7 % (19-41); Mean Corp Hgb Conc 28.3 g/dL (32-36); Mean Corpuscular Hgb 21.2 pg (27.0-32.0); Mean Corpuscular Volume 74.8 fL (80-94); Mean Platelet Vol. 10.2 fl (6.2-12.0); Monocyte# 0.87 X10^3/uL; Monocyte% 11.6 % (0-10); NRBC Flagged by Analyzer 0 % (0-5); Neutrophil # 5.28 X10^3/uL (2.7-7.7); Neutrophil % 70.5 % (47-70); POSITIVE MORPHOLOGY YES; Platelet Count 267 K/mm3 (150-450); RBC Distribution Width CV 23.8 % (11.6-14.6); RBC Distribution Width SD 63.3 fl (35.1-43.9); Red Blood Count 3.97 M/mm3 (4.6-6.2); White Blood Count 7.5 K/mm3 (4.4-11.0)
--- NOTE | 2019-07-03 08:21 | CPS ---
pt placed on 2 lpm....91% on 2. Nurse aware of change
[2019-07-03 08:22] LABS: Differential Indicated SCAN CRITERIA MET
[2019-07-03 08:56] LABS: Anisocytosis 3+; Hypochromasia 2+; Ovalocyte 1+; Schistocytes 1+
--- NOTE | 2019-07-03 09:19 | PCM.PN.SRG ---
Patient Problems: Active and Suspected Problems (Last Updated 07/02/19 @ 08:27 by Karl Martinez MD) Anemia (Acute) Subjective: Patient's current hemoglobin is 8.4 from 9. I did observe patient had stool which was brown with no evidence of blood - Physical Exam Vitals/I&O's: Vital Signs Temp Pulse Resp BP Pulse Ox 98.3 F 69 17 111/59 L 96 07/03/19 08:00 07/03/19 08:00 07/03/19 08:00 07/03/19 08:00 07/03/19 09:00 Oxygen Flow Rate (L/min) 2 Oxygen Delivery Method Nasal Cannula Weight: 216 lb 7.903 oz Body Mass Index (BMI) 30.4 Orthostatic Vital Signs Start: 07/02/19 09:44 Freq: q24h Status: Active Protocol: Activity Type Activity Date Activity User E-Sign Co-Sign Detail Recorded Client Recorded Date Recorded By Document 07/02/19 09:44 KYE [id number] 07/02/19 10:26 KYE 07/02/19 09:44 Orthostatic Vitals Standing -Blood Pressure (90/60-120/80) 104/67 -Extremity Use Right Arm -Pulse Rate (60-100) 66 Sitting -Blood Pressure (90/60-120/80) 103/63 -Extremity Use Right Arm -Pulse Rate (60-100) 67 Lying -Blood Pressure (90/60-120/80) 108/55 L -Extremity Use Right Arm -Pulse Rate (60-100) 63 Intake and Output for Last 24 Hours 07/01/19 07/02/19 07/03/19 23:59 23:59 23:59 Intake Total 1826 / 1826 1480 / 1720 440 / 440 Output Total 2900 / 2900 2025 / 2425 675 / 675 Balance -1074 / -1074 -545 / -705 -235 / -235 General: Alert, Oriented x3, Cooperative, No apparent distress HEENT: Atraumatic Lungs: Normal air movement Cardiovascular: Regular rate Abdomen: Soft, Non Tender, Non-Distended, - - Brown stool grossly no blood Extremities: No clubbing, No cyanosis, No edema Neurological: Cranial nerves II-XII grossly intact Psych/Mental Status: Normal Affect Laboratory Results 07/01/19 12:00: Diff Path Review Reviewed 07/02/19 04:40: Magnesium 2.3 07/02/19 09:55: PT 16.7 H, INR 1.4, APTT 32.0 07/02/19 12:11: POC Glucose 94 07/02/19 15:37: Hgb 9.0 L, Hct 31.5 L 07/02/19 17:53: POC Glucose 126 H 07/02/19 23:08: POC Glucose 99 07/03/19 06:42: POC Glucose 84 07/03/19 07:36: WBC 7.5, RBC 3.97 L, Hgb 8.4 L, Hct 29.7 L, MCV 74.8 L, MCH 21.2 L, MCHC 28.3 L, RDW Std Deviation 63.3 H, RDW Coeff of Jake 23.8 H, Plt Count 267, MPV 10.2, Immature Gran % (Auto) 0.300, Neut % (Auto) 70.5 H, Lymph % (Auto) 14.7 L, [place] % (Auto) 11.6 H, Eos % (Auto) 2.1, Baso % (Auto) 0.8, Absolute Neuts (auto) 5.3, Absolute Lymphs (auto) 1.10, Nucleated RBC % 0, Hypochromasia 2+, Anisocytosis 3+, Ovalocytes 1+, Schistocytes 1+ Current Medications Acetaminophen (Tylenol) 650 mg PO Q6H PRN PRN PRN Reason: Pain Score 1-3/Temp > 100.7 F Albuterol Sulfate (Ventolin Aerosols) 2.5 mg INHALATION Q2H PRN PRN PRN Reason: SOB/Wheezing Albuterol/Ipratropium (Duoneb) 3 ml INHALATION Q6HWA.RT [facility] Last Admin: 07/03/19 07:18 Dose: 3 ml Documented by: Atorvastatin Calcium (Lipitor) 40 mg PO DAILY@2200 [facility] Last Admin: 07/02/19 23:10 Dose: 40 mg Documented by: Budesonide (Pulmicort Aerosol) 0.5 mg INHALATION Q12H.RT [facility] Last Admin: 07/03/19 07:18 Dose: 0.5 mg Documented by: Buspirone HCl (Buspar) 15 mg PO BID [facility] Last Admin: 07/03/19 08:08 Dose: 15 mg Documented by: Clonazepam (Klonopin) 1 mg PO DAILY [facility] Last Admin: 07/02/19 09:39 Dose: Not Given Documented by: Glucagon () 1 mg IM .X1 PRN PRN Reason: Hypoglycemia Dextrose (Dextrose 10%-Water) 250 mls @ 999 mls/hr IV X1 PRN; Protocol PRN Reason: HYPOGLYCEMIA Pantoprazole Sodium 40 mg/ (Sodium Chloride) 110 mls @ 330 mls/hr IV Q12 [facility] Last Infusion: 07/02/19 23:39 Dose: Infused Documented by: Insulin Human Lispro (Humalog Kwikpen ([facility])) 0 unit SC ACHS [facility]; Protocol Last Admin: 07/03/19 06:43 Dose: Not Given Documented by: Nicotine (Nicoderm Cq ([facility])) 14 mg TRANSDERM. DAILY [facility] Last Admin: 07/03/19 08:07 Dose: 14 mg Documented by: Nicotine Polacrilex (Rugby Nicotine ([facility])) 2 mg PO Q2H PRN PRN PRN Reason: Nicotine Craving Ondansetron HCl (Zofran) 4 mg IV Q8H PRN PRN PRN Reason: NAUSEA/VOMITING Paroxetine HCl (Paxil) 20 mg PO DAILY [facility] Last Admin: 07/03/19 08:08 Dose: 20 mg Documented by: Sodium Chloride () 10 - 40 ml IV UD PRN PRN Reason: SALINE FLUSH Last Admin: 07/03/19 08:09 Dose: 10 ml Documented by: Medical Necessity - Tobacco Use Smoking Status: Current every day smoker Tobacco Use: Cigarettes Assessment/Plan All Active Problems (Last Updated 07/02/19 @ 08:27 by Karl Martinez MD) Anemia (Acute) 69-year-old male with anemia. 1. Patient did have a bowel movement which was brown with no gross signs of blood. Patient's hemoglobin remained stable he can call the office for endoscopy instructions and scheduling for next week with Dr. Aly. However if he does stay until Friday would plan to prep tomorrow and add him on Friday. Patient no further questions this time. Carolyn Navarro M.D. Pager: [phone] [facility] [address] [place] [address], [facility], [address] [place] [id number] Office: [phone] Code Visit Inpatient E&M: 50888 Subs Hosp L1
--- NOTE | 2019-07-03 11:15 | NURSING ---
pt up to be qualified for poss home o2. tryed first finger rt hand and sats 95% on ra at rest. up with therapy to amb in halls and steady gait obs. no sob obs and pt able to converse while walking. stopped and pox reading 87%. tried another finger and read 98%. finished walking with o2 not dropping below 98%. dr. montalvo aware. back to room and o2 left off.
[2019-07-03 11:46] LABS: Bedside Glucose 134 mg/dL (70-110)
[2019-07-03 12:07] LABS: Hematocrit 30.8 % (40-54); Hemoglobin 8.7 g/dL (13.0-16.5)
--- NOTE | 2019-07-03 12:29 | DCINST_ITS ---
- Discharge Diagnoses Current Active Problems: Current Active and Chronic Problems (Last Updated 07/02/19 @ 08:27 by Karl Martinez MD) Anemia (Acute) Hypertension (Chronic) Coronary artery disease (Chronic) COPD (chronic obstructive pulmonary disease) (Chronic) You will use the following diet at home:: Calorie/Carbohydrate Controlled (specify 1200, 1400, etc) - 1800 lola., Cardiac Your food should be the consistency of: Regular Discharge Activity: Return to Normal Activity Weight Bearing Status: Weight bearing as tolerated Call your doctor if you observe: Fever of 101 or Higher, Shortness of breath, Dizziness, Fainting spells, Chest pain, Increased palpitations (irregular heartbeat), Uncontrolled pain Allergies/Adverse Reactions: Allergies amlodipine [From [facility]] Adverse Reaction (Intermediate, Verified 07/01/19 11:41) Rash GENERIC BRAND Medications to take at Discharge Atorvastatin Calcium [Lipitor] 40 mg PO DAILY 10/17/17 Buspirone HCl [Buspar] 15 mg PO BID 10/17/17 Meclizine HCl [Antivert] 25 - 50 mg PO Q8H PRN PRN 10/17/17 Pantoprazole Sodium [Protonix] 40 mg PO QODAY 10/17/17 Sitagliptin Phosphate [Januvia] 100 mg PO DAILY 10/17/17 Spironolactone [Aldactone] 12.5 mg PO DAILY 10/17/17 rivaroxaban 20 mg tablet 20 mg PO DAILY 03/25/18 clonazepam 1 mg tablet 1 mg PO DAILY tab 11/03/18 ramipril 5 mg capsule 5 mg PO QHS cap 11/03/18 Aspirin [Aspirin EC] 81 mg PO DAILY@1700 07/01/19 Empagliflozin [Jardiance] 10 mg PO DAILY 07/01/19 Fish Oil/Dha/Epa [Fish Oil 1,200 mg Fish Oil] 1 ea PO TID 07/01/19 Metformin HCl [Metformin HCl ER] 500 mg PO BID 07/01/19 Metoprolol Succinate [Toprol Xl] 100 mg PO DAILY 07/01/19 Paroxetine HCl 20 mg PO DAILY 07/01/19 Pentoxifylline [Trental] 400 mg PO TID 07/01/19 Primary Care Physician: Cathy Kellogg DO [Primary Care Provider] - Please follow up with your Primary Care Physician in: 1 week. Test Results: Test results from this visit will be discussed in further detail at your follow- up appointment, if applicable. Please Follow Up With: Aime Aly MD When: please call his office.
--- NOTE | 2019-07-03 12:59 | DS.PCM_ITS ---
Discharge Date and Diagnosis - Problem List Patient Problems: Active and Suspected Problems (Last Updated 07/02/19 @ 08:27 by Karl Martinez MD) Anemia (Acute) Date of Admission: 07/01/19 Date of Discharge: 07/03/19 - Primary Discharge Diagnosis Active and Suspected Problems (Last Updated 07/02/19 @ 08:27 by Karl Martinez MD) Acute severe microcytic anemia, uncertain etiology. - Secondary Discharge Diagnosis Chronic Problems (Last Updated 07/02/19 @ 08:27 by Karl Martinez MD) Hypertension (Chronic) Coronary artery disease (Chronic) COPD (chronic obstructive pulmonary disease) (Chronic) History of LV Thrombus (Chronic) Mild aortic stenosis (Chronic) Sleep apnea (Chronic) on Cpap ICD (implantable cardioverter-defibrillator) in place (Chronic) History of upper gastrointestinal bleeding (Chronic) Polycythemia (Chronic) Abnormal PFTs (pulmonary function tests) (Chronic) CANDICE (obstructive sleep apnea) (Chronic) BiPAP 16/12 cm of water with a 2 L/min oxygen bleed Nicotine dependence, cigarettes, uncomplicated (Chronic) Hospital Course and Treatment Imaging Results: Clinical Impression(s) from Imaging Studies Abdomen/Pelvis CT 07/01/19 15:15 IMPRESSION: 1. Marked distention of the urinary bladder and bilateral renal collecting systems on to be due to outlet obstruction from prostatic enlargement. 2. Colonic diverticulosis without acute inflammatory change. 3. Renal and hepatic cysts. 4. Small bilateral pleural effusions and atelectasis. 5. Cardiomegaly with cardiac pacemaker. 6. Ectatic atherosclerotic aorta. 7. Degenerative changes of the lumbar spine. Electronically Signed: Jose Lujan DO at 17:55 EST Tel [phone], Service support , Dr. Ivory, critical care. Dr. Aly, general surgery. Operations: None Procedures: Blood transfusion Summary of Care Provided: Patient seen and examined on the day of discharge and appeared to be stable to be discharged home. He had a bowel movement and reportedly according to nursing staff, there was no evidence of blood. Overnight, blood pressure was in the lower side but improved this morning. Patient denied any chest pain or shortness of breath. Denied dizziness or lightheadedness. Vital signs are st able. The patient is a 69 year old M patient was referred to the ED for admission by his PCP for very low hemoglobin consistent with acute severe anemia. Anemia was microcytic anemia, isolated and there was no evidence of obvious etiology. Patient has been on aspirin and Xarelto but he denied any bleeding from body orifices. He denied epistaxis, hemoptysis, hematemesis, hematuria, hematochezia or melena. On admission, hemoglobin was 5.7 g/dL. Platelet count and WBC were normal. Pro time was 16 and INR was 1.4. Patient received a total of 4 g of packed RBCs and his hemoglobin upon discharge was 8.7 g/dL. Patient continued to have no evidence of active bleeding. General surgery consulted and recommended that if hemoglobin and hematocrit are stable, patient can go under upper endoscopy and colonoscopy as outpatient. Patient had bowel movement on the day of discharge which was normal without evidence of blood. This morning, hemoglobin was 8.4 g/dL and repeat hemoglobin at noon was 8.7 g/dL. Platelet count remained normal. Iron studies was not done because patient received multiple units of blood transfusion and that will probably alter the iron level and iron stores in his body. Patient discharged home in a stable medical condition, discharged hemoglobin was 8.7 g/dL, vital signs are stable, started back on aspirin and Xarelto, plan to follow-up with general surgery this coming week for upper endoscopy and colonoscopy as outpatient, patient was instructed to call Dr. key office to schedule an appointment, recommended follow-up with PCP in 1 week. Patient Problems: Active and Suspected Problems (Last Updated 07/02/19 @ 08:27 by Karl Martinez MD) Anemia (Acute) - Physical Exam Vitals/I&O's: Vital Signs Temp Pulse Resp BP Pulse Ox 98.3 F 71 17 108/65 95 07/03/19 08:00 07/03/19 09:44 07/03/19 08:00 07/03/19 09:44 07/03/19 11:00 Oxygen Flow Rate (L/min) 2 Oxygen Delivery Method Nasal Cannula Weight: 216 lb 7.903 oz Body Mass Index (BMI) 30.4 Orthostatic Vital Signs Start: 07/02/19 09:44 Freq: q24h Status: Active Protocol: Activity Type Activity Date Activity User E-Sign Co-Sign Detail Recorded Client Recorded Date Recorded By Document 07/03/19 09:44 [id number] 07/03/19 10:27 07/03/19 09:44 Orthostatic Vitals Standing -Blood Pressure (90/60-120/80) 108/65 -Extremity Use Right Arm -Pulse Rate (60-100) 71 Sitting -Blood Pressure (90/60-120/80) 97/69 -Extremity Use Right Arm -Pulse Rate (60-100) 75 Lying -Blood Pressure (90/60-120/80) 108/65 -Extremity Use Right Arm -Pulse Rate (60-100) 71 Intake and Output for Last 24 Hours 07/01/19 07/02/19 07/03/19 23:59 23:59 23:59 Intake Total 1826 / 1826 1480 / 1720 550 / 550 Output Total 2900 / 2900 2025 / 2425 675 / 675 Balance -1074 / -1074 -545 / -705 -125 / -125 General: Alert, Oriented x3, Cooperative, No apparent distress HEENT: Atraumatic, PERRLA, EOMI, Normocephalic Oral: Moist Mucosa, No Gingival or Mucosal Lesions/ Ulcerations Neck: Supple, No JVD, Negative Carotid Bruits, Trachea Midline, Thyroid Normal Size and Texture Lungs: Clear to auscultation, Normal air movement, No rhonchi, No wheeze, No rales, Diminished Cardiovascular: Normal S1, Normal S2, PMI Normal, Irregular Rate Abdomen: Bowel Sounds Present, Soft, Non Tender, Non-Distended, No Hepato- splenomegaly Extremities: No clubbing, No cyanosis, No edema Skin: No rashes, No breakdown Lymphatic: No Cervical, Supraclavicular, or Inguinal Adenopathy Neurological: Cranial nerves II-XII grossly intact, Neuro grossly intact Psych/Mental Status: Normal Affect, Appropriate Laboratory Results 07/01/19 12:00: Diff Path Review Reviewed 07/02/19 04:40: Magnesium 2.3 07/02/19 15:37: Hgb 9.0 L, Hct 31.5 L 07/02/19 17:53: POC Glucose 126 H 07/02/19 23:08: POC Glucose 99 07/03/19 06:42: POC Glucose 84 07/03/19 07:36: WBC 7.5, RBC 3.97 L, Hgb 8.4 L, Hct 29.7 L, MCV 74.8 L, MCH 21.2 L, MCHC 28.3 L, RDW Std Deviation 63.3 H, RDW Coeff of Jake 23.8 H, Plt Count 267, MPV 10.2, Immature Gran % (Auto) 0.300, Neut % (Auto) 70.5 H, Lymph % (Auto) 14.7 L, [place] % (Auto) 11.6 H, Eos % (Auto) 2.1, Baso % (Auto) 0.8, Abs olute Neuts (auto) 5.3, Absolute Lymphs (auto) 1.10, Nucleated RBC % 0, Hypochromasia 2+, Anisocytosis 3+, Ovalocytes 1+, Schistocytes 1+ 07/03/19 11:28: POC Glucose 134 H 07/03/19 11:58: Hgb 8.7 L, Hct 30.8 L Current Medications Acetaminophen (Tylenol) 650 mg PO Q6H PRN PRN PRN Reason: Pain Score 1-3/Temp > 100.7 F Albuterol Sulfate (Ventolin Aerosols) 2.5 mg INHALATION Q2H PRN PRN PRN Reason: SOB/Wheezing Albuterol/Ipratropium (Duoneb) 3 ml INHALATION Q6HWA.RT [facility] Last Admin: 07/03/19 07:18 Dose: 3 ml Documented by: Atorvastatin Calcium (Lipitor) 40 mg PO DAILY@2200 [facility] Last Admin: 07/02/19 23:10 Dose: 40 mg Documented by: Budesonide (Pulmicort Aerosol) 0.5 mg INHALATION Q12H.RT [facility] Last Admin: 07/03/19 07:18 Dose: 0.5 mg Documented by: Buspirone HCl (Buspar) 15 mg PO BID [facility] Last Admin: 07/03/19 08:08 Dose: 15 mg Documented by: Clonazepam (Klonopin) 1 mg PO DAILY [facility] Last Admin: 07/03/19 10:18 Dose: Not Given Documented by: Glucagon () 1 mg IM .X1 PRN PRN Reason: Hypoglycemia Dextrose (Dextrose 10%-Water) 250 mls @ 999 mls/hr IV X1 PRN; Protocol PRN Reason: HYPOGLYCEMIA Pantoprazole Sodium 40 mg/ (Sodium Chloride) 110 mls @ 330 mls/hr IV Q12 [facility] Last Infusion: 07/03/19 11:13 Dose: Infused Documented by: Insulin Human Lispro (Humalog Kwikpen ([facility])) 0 unit SC ACHS [facility]; Protocol Last Admin: 07/03/19 11:30 Dose: Not Given Documented by: Nicotine (Nicoderm Cq ([facility])) 14 mg TRANSDERM. DAILY [facility] Last Admin: 07/03/19 08:07 Dose: 14 mg Documented by: Nicotine Polacrilex (Rugby Nicotine ([facility])) 2 mg PO Q2H PRN PRN PRN Reason: Nicotine Craving Ondansetron HCl (Zofran) 4 mg IV Q8H PRN PRN PRN Reason: NAUSEA/VOMITING Paroxetine HCl (Paxil) 20 mg PO DAILY [facility] Last Admin: 07/03/19 08:08 Dose: 20 mg Documented by: Sodium Chloride () 10 - 40 ml IV UD PRN PRN Reason: SALINE FLUSH Last Admin: 07/03/19 10:18 Dose: 10 ml Documented by: Discharge Activity: Return to Normal Activity Weight Bearing Status: Weight bearing as tolerated Call your doctor if you observe: Fever of 101 or Higher, Shortness of breath, Dizziness, Fainting spells, Chest pain, Increased palpitations (irregular heartbeat), Uncontrolled pain Home Medications: Medications to take at Discharge Atorvastatin Calcium [Lipitor] 40 mg PO DAILY 10/17/17 Buspirone HCl [Buspar] 15 mg PO BID 10/17/17 Meclizine HCl [Antivert] 25 - 50 mg PO Q8H PRN PRN 10/17/17 Pantoprazole Sodium [Protonix] 40 mg PO QODAY 10/17/17 Sitagliptin Phosphate [Januvia] 100 mg PO DAILY 10/17/17 Spironolactone [Aldactone] 12.5 mg PO DAILY 10/17/17 rivaroxaban 20 mg tablet 20 mg PO DAILY 03/25/18 clonazepam 1 mg tablet 1 mg PO DAILY tab 11/03/18 ramipril 5 mg capsule 5 mg PO QHS cap 11/03/18 Aspirin [Aspirin EC] 81 mg PO DAILY@1700 07/01/19 Empagliflozin [Jardiance] 10 mg PO DAILY 07/01/19 Fish Oil/Dha/Epa [Fish Oil 1,200 mg Fish Oil] 1 ea PO TID 07/01/19 Metformin HCl [Metformin HCl ER] 500 mg PO BID 07/01/19 Metoprolol Succinate [Toprol Xl] 100 mg PO DAILY 07/01/19 Paroxetine HCl 20 mg PO DAILY 07/01/19 Pentoxifylline [Trental] 400 mg PO TID 07/01/19 Primary Care Physician: Cathy Kellogg DO [Primary Care Provider] - Please follow up with your Primary Care Physician in: 1 week. Please Follow Up With: Aime Aly MD When: please call his office. Please Follow Up With: Cathy Kellogg DO Disposition: Home Minutes spent on discharge:: 33 Patient Condition:: Stable Medical Necessity - Tobacco Use Smoking Status: Current every day smoker Tobacco Use: Cigarettes Meaningful Use Info Meaningful Use Diagnoses (Choose all that apply): None applicable Code Visit Inpatient E&M: 68933 Disch Hosp
--- NOTE | 2019-07-05 12:30 | CASEMGMT ---
Case Management DC F/u Call: DC Date: 07/03/19 DC Diagnosis: Acute severe microcytic anemia, uncertain etiology. DC Disposition: Home Lace/Strata: 04/22 Called patient Home number listed on demographics, patient answered. Introduced self and role. Patient states that he is doing okay. States called Jermain's office to schedula a F/u appointment but they must be on lunch. Confirmed has PCP Dr Kellogg's number to make a f/u appointment in 1 week. Denies any issues, concerns or questions with [facility], medications or F/u appointments. Patient DC'd on normal home medications and denies new medications. Jerrod Dumas RNCM
--- NOTE | 2019-07-05 12:46 | CASEMGMT ---
Case Management DC F/u Call: DC Date: 07/03/19 DC Diagnosis: Anemia (Acute) DC Disposition: Home Lace/Strata: 04/22 Called patient listed home number on demographics, patient answered, introduced self and role. Patient states that he is doing okay. States tried to call Dr Aly's office to schedule a f/u appointment but thinks they are out to lunch and will call back. Confirmed has Dr Kellogg's office number to schedule a f/u appointment for one week. Denies any issues, concerns or questions with [facility], medications or follow up. Thanked patient for choosing [facility] for care and ended conversation. Jerrod Dumas, [email or web address]
== END 2019-07-03 14:03 | disposition home or self-care (01) | DRG 812 ==
LOC: ED 12:43 → ICU 07-02 06:07 → PCU 07-02 11:49
PROVIDERS: Admitting Provider Internal Medicine; Emergency Provider Emergency Medicine; Family Provider Internal Medicine; PCP Internal Medicine; Referring Provider Internal Medicine; Visit Provider Hospitalist
DX: D50.9 Iron deficiency anemia, unspecified (principal); I48.20 Chronic atrial fibrillation, unspecified; I25.10 Atherosclerotic heart disease of native coronary artery without angina pectoris; G47.33 Obstructive sleep apnea (adult) (pediatric); E11.9 Type 2 diabetes mellitus without complications; F17.210 Nicotine dependence, cigarettes, uncomplicated; Z66 Do not resuscitate; Z95.5 Presence of coronary angioplasty implant and graft; Z79.84 Long term (current) use of oral hypoglycemic drugs; Z79.01 Long term (current) use of anticoagulants; Z95.810 Presence of automatic (implantable) cardiac defibrillator; Z79.82 Long term (current) use of aspirin; Z79.02 Long term (current) use of antithrombotics/antiplatelets; J44.9 Chronic obstructive pulmonary disease, unspecified; I35.0 Nonrheumatic aortic (valve) stenosis
CPT/HCPCS: 36415; 74177; 80048; 80053; 80076; 82274; 82962; 83735; 84484; 85014; 85018; 85025; 85027; 85610; 85730; 86850; 86900; 86901; 86920; 86922; 93005; 94640; 97116; 97162; 97165; 97530; 99285; 99406; J7040; P9016; Q9967; A4216; J1940

== ENCOUNTER 2019-07-09 09:41 | Day surgery (SDC) | payer MEDICARE, OTHER, SELFPAY ==
[2019-07-07 08:28] VITALS: BMI 30.4
--- NOTE | 2019-07-07 09:52 | HP_ITS ---
Intake Vital Signs 07/07/19 Height 5 ft 11 in 07/07/19 Weight: 220 lb 07/07/19 BMI 30.7 07/07/19 BP 92/51 L 07/07/19 Blood Pressure Location Rt brachial 07/07/19 Position Sitting 07/07/19 Respiration 18 Intake Visit Reasons: ER F/U [facility] 07/03 Discuss Upper Scope Chief Complaint: ABN LABS Business Analyst Required: No Is patient in pain?: No Allergies amlodipine [From [facility]] Adverse Reaction (Intermediate, Verified 07/07/19 08:28) Rash Medications Atorvastatin Calcium [Lipitor] 40 mg PO DAILY 10/17/17 [History Confirmed 07/07/19] Buspirone HCl [Buspar] 15 mg PO BID 10/17/17 [History Confirmed 07/07/19] Meclizine HCl [Antivert] 25 - 50 mg PO Q8H PRN PRN 10/17/17 [History Confirmed 07/07/19] Pantoprazole Sodium [Protonix] 40 mg PO QODAY 10/17/17 [History Confirmed 07/07/19] Sitagliptin Phosphate [Januvia] 100 mg PO DAILY 10/17/17 [History Confirmed 07/07/19] Spironolactone [Aldactone] 12.5 mg PO DAILY 10/17/17 [History Confirmed 07/07/19] rivaroxaban 20 mg tablet 20 mg PO DAILY 03/25/18 [History Confirmed 07/07/19] clonazepam 1 mg tablet 1 mg PO DAILY tab 11/03/18 [History Confirmed 07/07/19] ramipril 5 mg capsule 5 mg PO QHS cap 11/03/18 [History Confirmed 07/07/19] Aspirin [Aspirin EC] 81 mg PO DAILY@1700 07/01/19 [History Confirmed 07/07/19] Empagliflozin [Jardiance] 10 mg PO DAILY 07/01/19 [History Confirmed 07/07/19] Fish Oil/Dha/Epa [Fish Oil 1,200 mg Fish Oil] 1 ea PO TID 07/01/19 [History Confirmed 07/07/19] Metformin HCl [Metformin HCl ER] 500 mg PO BID 07/01/19 [History Confirmed 07/07/19] Metoprolol Succinate [Toprol Xl] 100 mg PO DAILY 07/01/19 [History Confirmed 07/07/19] Paroxetine HCl 20 mg PO DAILY 07/01/19 [History Confirmed 07/07/19] Pentoxifylline [Trental] 400 mg PO TID 07/01/19 [History Confirmed 07/07/19] [facility] Medical History Alcohol abuse, in remission (Acute) Anxiety (Acute) CAD (coronary artery disease) (Acute) COPD (chronic obstructive pulmonary disease) (Acute) Cardiac defibrillator in place (Acute) Cataract, bilateral (Acute) Diabetes mellitus (Acute) GERD (gastroesophageal reflux disease) (Acute) Hidradenitis (Acute) Hyperlipidemia (Acute) Insomnia (Acute) Rosacea (Acute) Vitamin D deficiency (Acute) Surgical History History of angioplasty (Acute) History of appendectomy (Acute) Family History Grandfather Heart disease Father Heart disease Social History (Updated 07/07/19 @ 09:52 by Aime Aly MD) Smoking Status: Current every day smoker tobacco type: cigarettes Tobacco: How many years used: 55 second hand exposure: Yes counseling given: provider counseling alcohol intake: never substance use type: does not use caffeine: Yes what type of physical activity do you participate in: none HPI HPI HPI: MISSY MUÑOZ, is a 69 M who presents to the office today for HPI HPI Surgical H&P: Yes HPI: MISSY MUÑOZ, is a 69 M who presents to the office today for anemia. The patient was recently admitted with anemia. He has not had any gross blood in his stool. He reports negative Cologuard 1 year ago. He is not having any abdominal pain. ROS General General: No weight change or fatigue Endo Endocrine: Yes diabetes mellitus Musc Musculoskeletal: Yes back problems and arthritis Cardio Cardiovascular: Yes pacemaker, heart disease, atrial fibrillation, heart attack and heart stent; no murmur, high blood pressure, palpitations, shortness of breat with exertion or chest pain Psych Psychiatric: Yes anxiety; no depression Resp Respiratory: No shortness of breath, No sleep apnea, No cough, Yes COPD, No asthma, No emphysema, No wheezing Gastro Gastrointestinal: No abdominal pain, No nausea or vomiting, No diarrhea, No constipation, No blood in stool, Yes acid reflux, No hemorrhoids, No ulcers, No gallbladder problem, No black,tarry stools Hardy Hematologic: Yes blood thinners, Yes blood disorders, Yes anemia Exam Const General: cooperative Orientation: alert, oriented x3 Resp Effort & Inspection: normal respiratory effort Auscultation: clear to auscultation bilaterally Cardio Rate: regular rate Rhythm: regular rhythm Heart Sounds: no murmurs GI Inspection: non-distended Palpation: soft, nontender Assessment & Plan Problems 1. Anemia, unspecified type D64.9 Plan The patient normally has regular or high hemoglobin. Recently when he was admitted he was very anemic with a hemoglobin less than 6. He has not had any gross blood loss. I saw him when he was in the hospital and plan for outpatient EGD and colonoscopy. I will get him scheduled for both. He is currently holding his blood thinners and will resume them after scopes. I explained endoscopy in detail to the patient. I explained the risks including but not limited to stroke or heart attack with anesthesia, perforation of the GI tract, bleeding, infection. I explained that any of these could necessitate further emergency surgery. The patient understands and all questions were answered sufficiently. The patient wishes to proceed with procedure. Aime Aly MD Pager: [facility] [address] [place] [address], [address] [place] [address] Office: Orders Orders: Colonoscopy Today D64.9 EGD Today D64.9 Coding Level of Care Code Off vis,new,level 3 Diagnoses Anemia, unspecified type D64.9 ??Anemia type: unspecified type 07/07/19 0952 <Electronically signed by Aime turk MD> Date _ Aime Aly MD I have re-examined the patient. There are no clinical changes since date of exam.
[2019-07-09] VITALS (7 sets, daily range): BP systolic 94–120; BP diastolic 55–104; PULSE 60–78; RESP 16; TEMP 36.3–36.4; O2SAT 95–99; BMI 29.9
[2019-07-09] MEDS: Lactated Ringers 1,000 ML 100 ML IV (10:19)
[2019-07-09 10:26] LABS: Bedside Glucose 86 mg/dL (70-110)
--- NOTE | 2019-07-09 11:05 | OP.EGD_ITS ---
Patient Name: Cr Avelar Procedure Date: 07/09/2019 10:26 AM Date of : 1950 Age: 69 Procedure: Upper GI endoscopy Indications: Iron deficiency anemia Providers: Aime Aly MD Referring MD: Cathy Kellogg Medicines: Monitored Anesthesia Care Patient Profile: This is a 69 year old male. Refer to note in patient chart for documentation of history and physical. Complications: No immediate complications. Procedure: Pre-Anesthesia Assessment: - Prior to the procedure, a History and Physical was performed, and patient medications and allergies were reviewed. The patient's tolerance of previous anesthesia was also reviewed. The risks and benefits of the procedure and the sedation options and risks were discussed with the patient. All questions were answered, and informed consent was obtained. Prior Anticoagulants: The patient has taken Eliquis (apixaban), last dose was 11 days prior to procedure. After reviewing the risks and benefits, the patient was deemed in satisfactory condition to undergo the procedure. After obtaining informed consent, the endoscope was passed under direct vision. Throughout the procedure, the patient's blood pressure, pulse, and oxygen saturations were monitored continuously. The gastroscope was introduced through the mouth, and advanced to the second part of duodenum. The upper GI endoscopy was accomplished without difficulty. The patient tolerated the procedure well. Scope In: 10:38:11 AM Scope Out: 10:40:15 AM Total Procedure Duration Time 0 hours 2 minutes 4 seconds Findings: The esophagus was normal. The stomach was normal. The examined duodenum was normal. Impression: - Normal esophagus. - Normal stomach. - Normal examined duodenum. - No specimens collected. Recommendation: - Discharge patient to home. - Resume previous diet. - Continue present medications. - Resume anticoagulant medication at prior dose tomorrow. Procedure Code(s): --- Professional --- 43580, Esophagogastroduodenoscopy, flexible, transoral; diagnostic, including collection of specimen(s) by brushing or washing, when performed (separate procedure) Diagnosis Code(s): --- Professional --- D50.9, Iron deficiency anemia, unspecified CPT copyright 2017 [employer]. All rights reserved. The codes documented in this report are preliminary and upon refinery operator light ends recovery review may be revised to meet current compliance requirements. Aime Aly MD 07/09/2019 11:04:29 AM This report has been signed electronically. Number of Addenda: 0 Note Initiated On: 07/09/2019 10:26 AM
--- NOTE | 2019-07-09 11:06 | OP.COLON_ITS ---
Patient Name: Cr Avelar Procedure Date: 07/09/2019 10:40 AM Date of : 1950 Age: 69 Procedure: Colonoscopy Indications: Iron deficiency anemia Providers: Aime Aly MD Referring MD: Cathy Kellogg Medicines: Monitored Anesthesia Care Patient Profile: This is a 69 year old male. Refer to note in patient chart for documentation of history and physical. Last Colonoscopy: none. The patient's first colonoscopy is today. Complications: No immediate complications. Estimated blood loss: None. Procedure: Pre-Anesthesia Assessment: - Prior to the procedure, a History and Physical was performed, and patient medications and allergies were reviewed. The patient's tolerance of previous anesthesia was also reviewed. The risks and benefits of the procedure and the sedation options and risks were discussed with the patient. All questions were answered, and informed consent was obtained. Prior Anticoagulants: The patient has taken Eliquis (apixaban), last dose was 11 days prior to procedure. After reviewing the risks and benefits, the patient was deemed in satisfactory condition to undergo the procedure. After I obtained informed consent, the scope was passed under direct vision. Throughout the procedure, the patient's blood pressure, pulse, and oxygen saturations were monitored continuously. The pediatric colonoscope was introduced through the anus and advanced to the cecum, identified by appendiceal orifice and ileocecal valve. The colonoscopy was performed without difficulty. The patient tolerated the procedure well. The quality of the bowel preparation was good. Scope In: 10:42:20 AM Scope Withdrawal Time 0 hours 6 minutes 21 seconds Scope Out: 11:00:40 AM Total Procedure Duration Time 0 hours 18 minutes 20 seconds Findings: The entire examined colon appeared normal on direct and retroflexion views. A few small-mouthed diverticula were found in the sigmoid colon. Impression: - The entire examined colon is normal on direct and retroflexion views. - Diverticulosis in the sigmoid colon. - No specimens collected. Recommendation: - Discharge patient to home. - Resume previous diet. - Continue present medications. - Repeat colonoscopy is not recommended due to current age (66 years or older) for screening purposes. Procedure Code(s): --- Professional --- 14888, Colonoscopy, flexible; diagnostic, including collection of specimen(s) by brushing or washing, when performed (separate procedure) Diagnosis Code(s): --- Professional --- D50.9, Iron deficiency anemia, unspecified K57.30, Diverticulosis of large intestine without perforation or abscess without bleeding CPT copyright 2017 [employer]. All rights reserved. The codes documented in this report are preliminary and upon rn rehab review may be revised to meet current compliance requirements. Aime Aly MD 07/09/2019 11:05:56 AM This report has been signed electronically. Number of Addenda: 0 Note Initiated On: 07/09/2019 10:40 AM
== END 2019-07-09 12:01 | disposition home or self-care (01) ==
LOC: EN 09:41 → AC 09:43
PROVIDERS: Family Provider Internal Medicine; PCP Internal Medicine; Referring Provider Internal Medicine; Visit Provider Surgery
PROC: 0DJD8ZZ Inspection of Lower Intestinal Tract, Via Natural or Artificial Opening Endoscopic (ICD-10-PCS; CPT 45378; principal; 2019-07-09 10:40)
DX: D50.9 Iron deficiency anemia, unspecified (principal); K57.30 Diverticulosis of large intestine without perforation or abscess without bleeding; I25.10 Atherosclerotic heart disease of native coronary artery without angina pectoris; I48.91 Unspecified atrial fibrillation; I25.2 Old myocardial infarction; I10 Essential (primary) hypertension; K21.9 Gastro-esophageal reflux disease without esophagitis; E11.9 Type 2 diabetes mellitus without complications; J44.9 Chronic obstructive pulmonary disease, unspecified; E78.00 Pure hypercholesterolemia, unspecified; E55.9 Vitamin D deficiency, unspecified; G47.30 Sleep apnea, unspecified; F32.9 Major depressive disorder, single episode, unspecified; F41.0 Panic disorder [episodic paroxysmal anxiety]; F10.11 Alcohol abuse, in remission; Y90.9 Presence of alcohol in blood, level not specified; F17.210 Nicotine dependence, cigarettes, uncomplicated; Z95.0 Presence of cardiac pacemaker; Z95.5 Presence of coronary angioplasty implant and graft; Z79.82 Long term (current) use of aspirin; Z79.01 Long term (current) use of anticoagulants; Z79.84 Long term (current) use of oral hypoglycemic drugs; Z79.899 Other long term (current) drug therapy
CPT/HCPCS: 43235; 45378; 82962; J7120; J2405

== ENCOUNTER → 2019-07-16 13:52 | Outpatient (CLI) | payer MEDICARE, OTHER, SELFPAY ==
[2019-07-01 11:41] VITALS: BMI 30.7
[2019-07-09 10:06] VITALS: BMI 29.9
--- NOTE | 2019-07-16 13:54 | ECHOCS_ITS ---
Reason For Study: Abnormal EKG Procedure This was a 2D Doppler, Color Flow transthoracic echocardiogram. Contrast injection was performed. The study was technically difficult. Exam performed in department. Left Ventricle Mild concentric left ventricular hypertrophy. Severely dilated left ventricle. The estimated ejection fraction is 30-35 %. Septal motion consistent with IVCD. Stage 1 diastolic dysfunction. There are regional wall motion abnormalities as specified. Right Ventricle Moderately dilated right ventricle. ICD or pacer leads identified within the right ventricle. Mild to moderate global right ventricular systolic dysfunction. Atria The left atrium is severely enlarged. The right atrium is severely enlarged. Normal atrial septum. Mitral Valve The mitral valve is structurally normal. No prolapse or stenosis seen. Mild (1+) mitral valve insufficiency. Tricuspid Valve Normal tricuspid valve. Mild (1+) tricuspid valve insufficiency. Right ventricular systolic pressure estimated to be 41 mmHg. Mild pulmonary hypertension. Aortic Valve Trisinus/trileaflet aortic valve. Severe focal aortic valve thickening. Mild restriction of the aortic valve. Probable fusion between right and left noncoronary cusps. Mild to moderate aortic stenosis. Peak aortic valve gradient 17 mmHg. Mean aortic valve gradient 9 mmHg. Calculated aortic valve area (continuity equation) is 1.2 cm2. Aortic stenosis may be underestimated given severe LV dysfunction. Pulmonic Valve Normal pulmonic valve. Great Vessels Normal aortic root. Normal arch. Normal inferior vena cava. Inferior vena cava collapse with sniff. Pericardium/Pleural No pericardial effusion. Medication 22 gauge I.V. with prn adaptor inserted into left arm. Diluted definity 3ml given slow IV push to enhance endocardial definition. MMode/2D Measurements & Calculations LVIDd: 6.7 cm IVSd: 1.6 cm LVOT diam: 2.1 cm LVIDs: 5.6 cm LVPWd: 1.1 cm FS: 16.4 % LVOT area: 3.6 cm2 Ao root diam: 4.2 cm LAV(MOD-bp): 112.3 ml LVAd ap4: 58.9 cm2 LA dimension: 5.3 cm LAV(MOD-bp) Indexed: 51.1 ml/m2 EDV(MOD-sp4): 282.1 ml LAV(MOD-sp2): 94.8 ml EDV(sp4-el): 290.5 ml LAV(MOD-sp4): 124.4 ml LVAs ap4: 46.1 cm2 ESV(MOD-sp4): 192.9 ml ESV(sp4-el): 197.2 ml EF(MOD-sp4): 31.6 % EF(sp4-el): 32.1 % SV(MOD-sp4): 89.2 ml SV(sp4-el): 93.3 ml LA A4 area: 30.7 cm2 RA A4 area: 28.7 cm2 Time Measurements MV dec time: 0.24 sec Doppler Measurements & Calculations MV E max kelby: 92.2 cm/sec Lat Peak E' Kelby: 4.8 cm/sec Med Peak E' Kelby: 5.4 cm/sec MV A max kelby: 73.6 cm/sec E/E' lat: 19.3 E/E' med: 17.2 MV E/A: 1.3 MV V2 max: 110.2 cm/sec MV P1/2t max kelby: 110.2 cm/sec Ao V2 max: 207.1 cm/sec MV max P.9 mmHg MV P1/2t: 114.1 msec Ao max P.1 mmHg MV V2 mean: 60.5 cm/sec MV dec slope: 283.0 cm/sec2 Ao V2 mean: 144.3 cm/sec MV mean P.7 mmHg MVA(P1/2t): 1.9 cm2 Ao mean P.4 mmHg MV V2 VTI: 40.1 cm Ao V2 VTI: 45.6 cm MVA(VTI): 1.4 cm2 GITA(I,D): 1.2 cm2 GITA(V,D): 1.2 cm2 LV V1 max: 70.6 cm/sec MR max kelby: 467.6 cm/sec SV(LVOT): 55.3 ml LV V1 max P.0 mmHg MR max P.5 mmHg LV V1 mean P.95 mmHg MR mean kelby: 373.3 cm/sec LV V1 mean: 44.5 cm/sec MR mean P.2 mmHg LV V1 VTI: 15.3 cm MR VTI: 176.3 cm PA V2 max: 95.2 cm/sec TR max kelby: 276.1 cm/sec TR max P.5 mmHg Interpretation Summary Severely dilated left ventricle. The estimated ejection fraction is 30-35 %. Stage 1 diastolic dysfunction. There are regional wall motion abnormalities as specified. Moderately dilated right ventricle. Mild to moderate global right ventricular systolic dysfunction. The left atrium is severely enlarged. The right atrium is severely enlarged. Mild (1+) mitral valve insufficiency. Mild (1+) tricuspid valve insufficiency. Mild pulmonary hypertension. Mild restriction of the aortic valve. Mild to moderate aortic stenosis. Probable fusion between right and left noncoronary cusps. Aortic stenosis may be underestimated given severe LV dysfunction. Right ventricular systolic pressure estimated to be 41 mmHg. Compared to echo report dated 12/12/2017, LV function appears to be slightly worse, and RVSP is increased from 27 to 41 mmHg. Ordering Physician: Cathy Kellogg Referring Physician: Cathy Kellogg Performed By: James Raza RCS
== END ==
PROVIDERS: Family Provider Internal Medicine; PCP Internal Medicine; Referring Provider Internal Medicine; Visit Provider Internal Medicine
DX: R94.31 Abnormal electrocardiogram [ECG] [EKG] (principal); I45.10 Unspecified right bundle-branch block
CPT/HCPCS: 93306; Q9957; A4216; C8929

== ENCOUNTER → 2019-07-22 13:54 | Outpatient (CLI) | payer MEDICARE, OTHER, SELFPAY ==
[2019-07-09 10:06] VITALS: BMI 29.9
[2019-07-22 15:42] LABS: Absolute Lymphocyte Count 1.68 X10^3/uL (0.83-4.51); Absolute Neutrophil Count 4.3 X10^3/uL (2.0-7.7); Basophil# 0.09 X10^3/uL; Basophil% 1.3 % (0-1); Eosinophil# 0.18 X10^3/uL; Eosinophils% 2.6 % (0-5); Hematocrit 34.6 % (40-54); Hemoglobin 9.3 g/dL (13.0-16.5); Lymphocyte # 1.68 X10^3/ul (4.0); Lymphocyte % 24.3 % (19-41); Mean Corp Hgb Conc 26.9 g/dL (32-36); Mean Corpuscular Hgb 21.2 pg (27.0-32.0); Mean Platelet Vol. 9.5 fl (6.2-12.0); Monocyte% 8.7 % (0-10); NRBC Flagged by Analyzer 0 % (0-5); Neutrophil # 4.33 X10^3/uL (2.7-7.7); Neutrophil % 62.8 % (47-70); POSITIVE MORPHOLOGY YES; Platelet Count 415 K/mm3 (150-450); RBC Distribution Width CV 24.9 % (11.6-14.6); RBC Distribution Width SD 69.8 fl (35.1-43.9); Red Blood Count 4.38 M/mm3 (4.6-6.2); White Blood Count 6.9 K/mm3 (4.4-11.0)
[2019-07-22 15:45] LABS: Differential Indicated SCAN CRITERIA MET
[2019-07-22 16:17] LABS: LDH 173 U/L (87-241)
[2019-07-22 16:30] LABS: Anisocytosis 1+; Hypochromasia 2+; Microcytosis 1+; Platelet Estimate ADEQUATE (ADEQ)
[2019-07-24 13:03] LABS: Haptoglobin 134 mg/dL (34-355)
== END ==
PROVIDERS: Family Provider Internal Medicine; PCP Internal Medicine; Referring Provider Internal Medicine; Visit Provider Internal Medicine
DX: D64.9 Anemia, unspecified (principal)
CPT/HCPCS: 36415; 83010; 83615; 85025; 86880

== ENCOUNTER → 2019-08-23 12:43 | Outpatient (CLI) | payer MEDICARE, OTHER, SELFPAY ==
[2019-07-09 10:06] VITALS: BMI 29.9
[2019-08-13 12:41] LABS: Erythrocyte Sedimentation Rate 13 mm/hr (0-20)
[2019-08-13 13:26] LABS: BUN 17 mg/dL (7-18); Creatinine, Serum 1.12 mg/dL (0.70-1.30); EST Glomerular Filtration Rate 69 mL/min (>60); Est Glom Filt Rate - Afr Amer 83 mL/min (>60); Rheumatoid Factor < 10.0 IU/mL (<15); Thyroid Stim Hormone (TSH) 1.35 uIU/mL (0.358-3.74)
[2019-08-13 14:04] LABS: HIV - WCH Non-Reactive (Nonreactive); Hepatitis C Antibody Non-Reactive (Nonreactive); Vitamin B12 322 pg/mL (211-911)
[2019-08-16 14:08] LABS: RNP Ab <0.2 AI (0.0-0.9); Smith Ab <0.2 AI (0.0-0.9)
[2019-08-16 14:34] LABS: ANTINUCLEAR ANTIBODIES DIRECT Negative (Negative)
[2019-08-18 20:07] LABS: PROEL- A/G Ratio 1.2 (0.7-1.7); PROEL- Albumin 3.6 g/dL (2.9-4.4); PROEL- Alpha-1 Globulin 0.3 g/dL (0.0-0.4); PROEL- Alpha-2 Globulin 0.7 g/dL (0.4-1.0); PROEL- Beta Globulin 1.3 g/dL (0.7-1.3); PROEL- Gamma Globulin 0.7 g/dL (0.4-1.8); PROEL- Globulin, Total 2.9 g/dL (2.2-3.9); PROEL- TOTAL PROTEIN 6.5 g/dL (6.0-8.5)
[2019-08-19 00:41] LABS: ARSENIC (TOTAL), URINE 19 ug/L (0-50)
--- NOTE | 2019-08-23 12:45 | CT_ITS ---
STUDY: CT BRAIN WITH AND WITHOUT CONTRAST REASON FOR EXAM: Male, 69 years old. ATAXIA, LT LEG CRAMPING, RT ,LEG WOBBLES, FREQUENT FALLS RADIATION DOSAGE (If Supplied By Facility): CTDIvol = ( 44.99 ) mGy, DLP = ( 1614.72 ) mGycm TECHNIQUE: Transaxial CT imaging of the brain was performed pre and post contrast administration. The examination was performed with intravenous administration of IV 50mL Isovue-370. Individualized dose optimization techniques were used for this CT. COMPARISON: Comparison is made with prior study dated December 23, 2012. FINDINGS: Normal soft tissue structures. Normal calvarium. There is mild cerebral atrophy with widening of the extra-axial spaces and ventricular dilatation. Normal white matter tracts of the cerebral hemispheres. Normal basal ganglia and thalami. Normal brainstem. Normal cerebellum. There is no intracranial hemorrhage. There are no findings of an acute ischemic infarction. Mucosal thickening along the anterior aspects of both maxillary sinuses. Partial opacification of the ethmoid sinuses bilaterally. CT/Brain/Head W/WO Contrast IMPRESSION: Chronic involutional changes of the brain. Mucosal thickening of the anterior portions of the maxillary sinuses with partial opacification of the ethmoid sinuses bilaterally. Electronically Signed: Andrew Arrington, at 13:50 EST , Service support ,
== END ==
LOC: CT 12:44
PROVIDERS: PCP Internal Medicine; Referring Provider Psychiatry & Neurology Neurology; Visit Provider Psychiatry & Neurology Neurology
DX: E13.40 Other specified diabetes mellitus with diabetic neuropathy, unspecified (principal); G62.9 Polyneuropathy, unspecified; R20.2 Paresthesia of skin; R53.83 Other fatigue
CPT/HCPCS: 36415; 70470; 82175; 82565; 82570; 82607; 82746; 83036; 83655; 83825; 84165; 84443; 84520; 85652; 86038; 86235; 86431; 86703; 86803; Q9967

== ENCOUNTER → 2019-09-08 07:46 | Outpatient (CLI) | payer MEDICARE, OTHER, SELFPAY ==
[2019-07-09 10:06] VITALS: BMI 29.9
--- NOTE | 2019-09-08 07:47 | CT_ITS ---
STUDY: LOW DOSE CT LUNG CANCER SCREENING REASON FOR EXAM: Male, 69 years old. 1PPD X 55 YEARS. COPD. PRIOR HEART STENT AND PACER RADIATION DOSAGE (If Supplied By Facility): CTDIvol = ( 3.40 ) mGy, DLP = ( 116.13 ) mGycm TECHNIQUE: No contrast was administered. Low dose technique was utilized (average mAS-38 and kVp 120). 1.25 mm axial source images with a slice interval of 1.25-mm were reconstructed in lung windows. 2.5 mm axial source images with a slice interval of 2.5-mm were reconstructed in lung windows. 5.0 mm axial source images with a slice interval of 5.0-mm were reconstructed in soft tissue windows. Nodule measured using lung windows on PACS and/or independent workstation with automated measurement of minimum and maximum diameter. Nodule measurement reported as average diameter rounded to the nearest whole number. Growth is defined as an increase ins size of greater than 1.5 mm. COMPARISON: Comparison is made with prior examination dated November 03, 2018. NODULES: No suspicious nodules are seen. Emphysema: Mild degree of scarring at the lung bases. Endobronchial lesion: None. Aorta: Scattered atherosclerotic plaques. Coronary arteries: Coronary artery calcification. Heart: Left-sided dual-chamber pacemaker is seen. Mediastinal nodes: Small benign-appearing mediastinal lymph nodes. Other chest and abdominal findings: Degenerative changes of the thoracic vertebra. CT/Low Dose CT Lung Screening IMPRESSION: Lung-RADS category 2 - Continue annual screening with LDCT in 12 months. IMPORTANT NOTES FOR USE: ACR Lung-RADS Version 1.0 Assessment Categories Release Date: November 15, 2013 Category: Coded 0-4 bases on nodule(s) with highest degree of suspicion. Negative screen is defined as categories 1 and 2; a positive screen is defined as categories 3 and 4. Category 3 and 4A nodules that are unchanged on interval CT should be coded as category 2, and individuals returned to screening in 12 months. Category 4X: Category 3 or 4 nodules with additional imaging findings that increase the suspicion of lung cancer, such as spiculation, GGN that doubles in size in 1 year, enlarged lymph notes, etc. Category Modifiers: S (significant finding unrelated to lung cancer) and C (prior history of treated lung cancer) may be added to the 0-4 Lung-RADS Electronically Signed: Andrew Arrington, at 13:56 EST , Service support ,
== END ==
PROVIDERS: PCP Internal Medicine; Referring Provider Internal Medicine Critical Care Medicine; Visit Provider Internal Medicine Critical Care Medicine
DX: F17.210 Nicotine dependence, cigarettes, uncomplicated (principal); Z12.2 Encounter for screening for malignant neoplasm of respiratory organs
CPT/HCPCS: G0297

== ENCOUNTER → 2020-05-05 06:17 | Outpatient (CLI) | payer MEDICARE, OTHER, SELFPAY ==
[2019-07-09 10:06] VITALS: BMI 29.9
--- NOTE | 2020-05-05 06:26 | ECHOD_ITS ---
Reason For Study: Arrhythmia Procedure This was a 2D Doppler, Color Flow transthoracic echocardiogram. The study was technically difficult. Contrast injection was performed. Exam performed in department. Left Ventricle Moderately dilated left ventricle. Moderate segmental systolic dysfunction (see wall motion). The estimated ejection fraction is 35 %. Diastolic function is indeterminate. Posterior-Basal: Akinetic. Infero-Basal: Akinetic. Basal inferoseptal: Hypokinetic. Mid-Anterior : Hypokinetic. Mid-Lateral : Hypokinetic. Mid-Posterior: Akinetic. Mid-Inferior: Hypokinetic. Anterior [place] : Hypokinetic. Inferior [place] : Hypokinetic. Lateral [place] : Hypokinetic. Right Ventricle Normal RV size. ICD or pacer leads identified within the right ventricle. Normal systolic function. Atria The left atrium is mildly enlarged. The right atrium is mildly enlarged. ICD or pacer leads identified within the right atrium. No doppler evidence for ASD. Mitral Valve There is no mitral annular calcification. Normal mitral valve. Trivial mitral valve insufficiency. Tricuspid Valve Normal tricuspid valve. Trivial tricuspid valve insufficiency. Unable to estimate RV systolic pressure/pulmonary artery pressure due to technically difficult study. Aortic Valve Trisinus/trileaflet aortic valve. Moderate focal aortic valve calcification. Mild aortic stenosis. Pulmonic Valve The pulmonic valve is not well visualized. Trivial pulmonic valve insufficiency. Great Vessels The aortic root is not well visualized. Pericardium/Pleural No pericardial effusion. Medication 22 gauge I.V. with prn adaptor inserted into left arm. Diluted definity 4ml given slow IV push to enhance endocardial definition. MMode/2D Measurements & Calculations LVIDd: 6.1 cm IVSd: 1.8 cm LVOT diam: 2.1 cm LVIDs: 5.6 cm LVPWd: 1.1 cm RVDd: 3.8 cm FS: 7.6 % LVOT area: 3.6 cm2 LA dimension: 4.8 cm LAV(MOD-bp): 73.1 ml LA A4 area: 22.8 cm2 LAV(MOD-bp) Indexed: 32.6 ml/m2 LAV(MOD-sp2): 73.2 ml LAV(MOD-sp4): 74.3 ml RA A4 area: 23.6 cm2 Time Measurements MV dec time: 0.37 sec Doppler Measurements & Calculations MV E max kelby: 40.4 cm/sec Lat Peak E' Kelby: 2.7 cm/sec Med Peak E' Kelby: 5.2 cm/sec MV A max kelby: 63.4 cm/sec E/E' lat: 14.9 E/E' med: 7.7 MV E/A: 0.64 MV V2 max: 82.8 cm/sec MV P1/2t max kelby: 63.4 cm/sec Ao V2 max: 235.9 cm/sec MV max P.7 mmHg MV P1/2t: 145.3 msec Ao max P.3 mmHg MV V2 mean: 46.0 cm/sec MV dec slope: 127.8 cm/sec2 Ao V2 mean: 148.8 cm/sec MV mean P.99 mmHg Ao mean P.5 mmHg MV V2 VTI: 29.4 cm MVA(P1/2t): 1.5 cm2 Ao V2 VTI: 53.7 cm MVA(VTI): 2.1 cm2 GITA(I,D): 1.1 cm2 GITA(V,D): 1.1 cm2 LV V1 max: 74.0 cm/sec SV(LVOT): 61.1 ml PA V2 max: 94.4 cm/sec LV V1 max P.2 mmHg LV V1 mean P.96 mmHg LV V1 mean: 44.6 cm/sec LV V1 VTI: 17.0 cm Interpretation Summary The study was technically difficult. Contrast injection was performed. Moderately dilated left ventricle. Moderate segmental systolic dysfunction (see wall motion). The estimated ejection fraction is 35 %. The left atrium is mildly enlarged. The right atrium is mildly enlarged. Trivial mitral valve insufficiency. Trivial tricuspid valve insufficiency. Mild aortic stenosis. Trivial pulmonic valve insufficiency. The aortic root is not well visualized. Unable to estimate RV systolic pressure/pulmonary artery pressure due to technically difficult study. Diastolic function is indeterminate. ICD or pacer leads identified within the right atrium ICD or pacer leads identified within the right ventricle. Ordering Physician: KELSEY GARCIA Referring Physician: Cathy Kellogg M.D. Performed By: James Raza RCS
--- NOTE | 2020-05-05 08:16 | STRESSREP ---
Stress Test Report Date: 05-05-2020 Procedure: Pharmacologic stress nuclear imaging study Indications: CAD; PCI; cardiac dysrhythmia; ICD Consent: Per the patient Procedure: The patient underwent pharmacologic (Regadenoson) evaluation with a peak heart rate of 79 beats per minute (53%predicted maximal heart rate) and a peak blood pressure of 110/70 mmHg. The baseline ECG demonstrated sinus versus ectopic atrial rhythm; nonspecific ST/T wave abnormality. The peak pharmacologic ECG demonstrated the appearance of an underlying electronic ventricular paced rhythm. There was a rare PVC in recovery. There was no complaint of chest discomfort during pharmacologic infusion or recovery. The examination was discontinued secondary to completion of protocol. Impression: 1. Pharmacologic (Regadenoson) evaluation 2. Peak pharmacologic ECG with the appearance of an underlying electronic ventricular paced rhythm. 3. There was a rare PVC in recovery. 4. Nuclear images pending Myocardial perfusion imaging study: Technique: The patient was injected with 15.0 millicuries of technetium 99m Cardiolite and subsequently rest SPECT Cardiolite nuclear imaging was obtained in the horizontal long, vertical long, and short axis views. The patient underwent pharmacologic (Regadenoson) evaluation with a peak heart rate of 79 beats per minute (53% percent predicted maximal heart rate) and a peak blood pressure of 110/70 mmHg. The patient was injected with 45.0 millicuries of technetium 99m Cardiolite and subsequently stress SPECT Cardiolite nuclear imaging was obtained in the horizontal long, vertical long, and short axis views. A gated Cardiolite study at peak stress was obtained. Interpretation: Rest and stress SPECT Cardiolite nuclear imaging status post realignment, normalization, and attenuation correction demonstrate a small area of diminished tracer uptake near the apical segments without significant change between rest and stress. There is diminished end systolic thickening and brightening. The gated Cardiolite study demonstrates diminished myocardial thickening and inward wall motion. The reported LVEF is 39%. Impression: 1. Rest and stress SPECT cardiac nuclear imaging demonstrate myocardial perfusion changes appearing compatible with a effects of physiologic apical thinning with no myocardial perfusion changes considered diagnostic for associated stress-induced myocardial ischemia. 2. The gated Cardiolite study reports an LVEF of 39%. This note was generated with [employer] software. It may contain incorrect words, spelling, and punctuation that were not noted in checking the note before signing.
== END ==
PROVIDERS: PCP Internal Medicine
DX: Z13.6 Encounter for screening for cardiovascular disorders (principal); I24.9 Acute ischemic heart disease, unspecified; I47.2 Ventricular tachycardia
CPT/HCPCS: 78452; 93017; 93306; A9500; Q9957; A4216; J2785

== ENCOUNTER 2020-09-14 11:26 | Outpatient (RCR) | payer MEDICARE, OTHER, SELFPAY ==
[2019-07-09 10:06] VITALS: BMI 29.9
== END 2020-09-14 23:59 ==
LOC: IMMUN 11:26
PROVIDERS: PCP Internal Medicine; Referring Provider Family Medicine; Visit Provider Family Medicine
DX: Z23 Encounter for immunization (principal)
CPT/HCPCS: 0011A; 0012A; 91301

== ENCOUNTER → 2020-12-12 13:32 | Outpatient (CLI) | payer MEDICARE, OTHER, SELFPAY ==
[2019-07-09 10:06] VITALS: BMI 29.9
[2020-12-12 13:09] VITALS: BMI 32.3
--- NOTE | 2020-12-12 13:33 | CT_ITS ---
STUDY: LOW DOSE CT LUNG CANCER SCREENING REASON FOR EXAM: Male, 70 years old. Lung cancer screening -- 57 pack year history; current smoker; asymptomatic RADIATION DOSAGE (If Supplied By Facility): CTDIvol = ( 4.02 ) mGy, DLP = ( 144.96 ) mGycm TECHNIQUE: No contrast was administered. Low dose technique was utilized (average mAS-38 and kVp 120). 1.25 mm axial source images with a slice interval of 1.25-mm were reconstructed in lung windows. 2.5 mm axial source images with a slice interval of 2.5-mm were reconstructed in lung windows. 5.0 mm axial source images with a slice interval of 5.0-mm were reconstructed in soft tissue windows. Nodule measured using lung windows on PACS and/or independent workstation with automated measurement of minimum and maximum diameter. Nodule measurement reported as average diameter rounded to the nearest whole number. Growth is defined as an increase ins size of greater than 1.5 mm. COMPARISON: Comparison is made with prior study dated 09/08/2019. NODULES: No suspicious nodules are seen. Emphysema: Stable mild degree of emphysematous changes. Endobronchial lesion: None Aorta: Scattered atherosclerotic plaques. Coronary arteries: Coronary artery calcifications. Heart: A left-sided dual-chamber pacemaker is seen. Mediastinal nodes: Small benign-appearing mediastinal lymph nodes. Other chest and abdominal findings: Degenerative changes of the thoracic spine. CT/Low Dose CT Lung Screening IMPRESSION: Lung-RADS category 2 - Continue annual screening with LDCT in 12 months. IMPORTANT NOTES FOR USE: ACR Lung-RADS Version 1.1 Assessment Categories Release Date: 2018 Category: Coded 0-4 bases on nodule(s) with highest degree of suspicion. Negative screen is defined as categories 1 and 2; a positive screen is defined as categories 3 and 4. Category 3 and 4A nodules that are unchanged on interval CT should be coded as category 2, and individuals returned to screening in 12 months. Category 4X: Category 3 or 4 nodules with additional imaging findings that increase the suspicion of lung cancer, such as spiculation, GGN that doubles in size in 1 year, enlarged lymph notes, etc. Category Modifiers: S (significant finding unrelated to lung cancer) Electronically Signed: Andrew Arrington MD at 14:05 EDT , Service support ,
== END ==
PROVIDERS: PCP Internal Medicine; Referring Provider Nurse Practitioner Family; Visit Provider Nurse Practitioner Family
DX: Z12.2 Encounter for screening for malignant neoplasm of respiratory organs (principal); Z87.891 Personal history of nicotine dependence
CPT/HCPCS: 71271

== ENCOUNTER → 2022-01-15 | Outpatient (CLI) | payer MEDICARE, OTHER, SELFPAY ==
--- NOTE | 2022-01-15 14:39 | CT_ITS ---
STUDY: LOW DOSE CT LUNG CANCER SCREENING REASON FOR EXAM: Male, 71 years old. Lung cancer screening -- and gt; 30 pk yr hx;current smoker; asymptomatic RADIATION DOSAGE (If Supplied By Facility): CTDIvol = ( 4.02 ) mGy, DLP = ( 148.48 ) mGycm TECHNIQUE: No contrast was administered. Low dose technique was utilized (average mAS-38 and kVp 120). 1.25 mm axial source images with a slice interval of 1.25-mm were reconstructed in lung windows. 2.5 mm axial source images with a slice interval of 2.5-mm were reconstructed in lung windows. 5.0 mm axial source images with a slice interval of 5.0-mm were reconstructed in soft tissue windows. COMPARISON: Comparison is made with prior study dated 12/12/2020. NODULES: No suspicious nodules are seen. Emphysema: Stable mild degree of emphysematous changes. Endobronchial lesion: None Aorta: Atherosclerotic plaque formation of the aortic arch. CORONARY ARTERIES: Coronary artery calcification is seen. A left-sided dual-chamber pacemaker is seen. Heart: A left-sided dual-chamber pacemaker is seen. Pulmonary artery: Unremarkable Mediastinal nodes: Small benign appearing mediastinal lymph nodes. Other chest and abdominal findings: CT/Low Dose CT Lung Screening IMPRESSION: Lung-RADS category 2 - Continue annual screening with LDCT in 12 months. IMPORTANT NOTES FOR USE: ACR Lung-RADS Version 1.1 Assessment Categories Release Date: 2018 Category: Coded 0-4 bases on nodule(s) with highest degree of suspicion. Negative screen is defined as categories 1 and 2; a positive screen is defined as categories 3 and 4. Category 3 and 4A nodules that are unchanged on interval CT should be coded as category 2, and individuals returned to screening in 12 months. Category 4X: Category 3 or 4 nodules with additional imaging findings that increase the suspicion of lung cancer, such as spiculation, GGN that doubles in size in 1 year, enlarged lymph notes, etc. Category Modifiers: S (significant finding unrelated to lung cancer) Electronically Signed: Andrew Arrington MD at 15:28 EDT ,
== END | disposition home or self-care (01) ==
LOC: CT 14:38
PROVIDERS: PCP Internal Medicine; Referring Provider Nurse Practitioner Family; Visit Provider Nurse Practitioner Family
DX: Z12.2 Encounter for screening for malignant neoplasm of respiratory organs (principal); Z87.891 Personal history of nicotine dependence
CPT/HCPCS: 71271

== ENCOUNTER → 2022-11-21 | Outpatient (CLI) | payer MEDICARE, OTHER, SELFPAY ==
[2022-11-21 12:11] LABS: Potassium 4.8 mmol/L (3.5-5.1)
== END | disposition home or self-care (01) ==
LOC: LABSPEC 12:00
PROVIDERS: PCP Internal Medicine; Referring Provider Internal Medicine; Visit Provider Internal Medicine
DX: E87.5 Hyperkalemia (principal)
CPT/HCPCS: 84132

== ENCOUNTER 2023-03-27 16:13 | Emergency (ER) | payer MEDICARE, OTHER, SELFPAY ==
[2023-03-27] VITALS (7 sets, daily range): BP systolic 103–115; BP diastolic 66–75; PULSE 73–79; RESP 16–18; TEMP 36.3–36.4; O2SAT 92–99
--- NOTE | 2023-03-27 18:14 | EDS_ITS ---
HPI History of Present Illness Chief Complaint: Abn Labs Detail of Chief Complaint: Low hemoglobin, weakness in legs Informant: patient and spouse/S.O. Onset/Context/Timing Onset: - (Unknown) Context: Gradual Onset (Suspect) Timing: - (Known) Quality: Fatigue, weak legs and hemoglobin of 7 Location: Generalized and GI presumed Current Severity: Mild Maximum Severity: Moderate Worsened by: Activity Relieved by: Nothing Associated Symptoms Associated Symptoms: Denies black or maroon-colored stool. He does have history of hemorrhoids Narrative Narrative: Patient is 72-year-old male. He has a history of hypertension, anemia, coronary disease, COPD, cysts AICD, polycythemia who is on Xarelto. He is not certain why he is on Xarelto. Based on his medication list he also has history of type 2 diabetes. Patient presents because of generalized weakness and low hemoglobin. He denies black or maroon-colored stool. He does report bright red blood per rectum on toilet paper and does have history of hemorrhoids. He denies anginal anginal equivalent symptoms. He denies dyspnea on exertion. Denies orthopnea or PND. Prior similar symptoms: No (Patient states he has never received a blood transfusion) Recent Illness/Hospitalization: No PFSH PFS Medical History Alcohol abuse, in remission Anxiety CAD (coronary artery disease) Cardiac defibrillator in place Cataract, bilateral COPD (chronic obstructive pulmonary disease) Diabetes mellitus Encounter for screening for malignant neoplasm of lung MIRANDA (generalized anxiety disorder) GERD (gastroesophageal reflux disease) Hidradenitis Hyperlipidemia Insomnia Panic disorder Rosacea Skin lesions Vitamin D deficiency Home Medications atorvastatin 40 mg tablet 40 mg PO DAILY cholesterol 10/17/17 [History Last Taken 06/30/19] meclizine 25 mg tablet 25 - 50 mg PO Q8H PRN PRN Dizziness 10/17/17 [History Last Taken 07/01/19] pantoprazole 40 mg tablet,delayed release 40 mg PO QODAY gerd 10/17/17 [History Last Taken 07/09/19 07:15] spironolactone 25 mg tablet 12.5 mg PO DAILY fluid 10/17/17 [History Last Taken 07/09/19 07:15] rivaroxaban 20 mg tablet (Xarelto) 20 mg PO DAILY blood thinner 03/25/18 [History Last Taken 06/30/19] ramipril 5 mg capsule 5 mg PO QHS legs 11/03/18 [History Last Taken 06/30/19] aspirin 81 mg tablet,delayed release 81 mg PO DAILY@1700 heart health 07/01/19 [History Last Taken 06/30/19] empagliflozin 10 mg tablet 10 mg PO DAILY dm 07/01/19 [History Last Taken 06/30/19] metformin 500 mg tablet,extended release 24 hr 500 mg PO BID dm 07/01/19 [History Last Taken 07/01/19] metoprolol succinate 100 mg tablet,extended release 24 hr 100 mg PO DAILY heart 07/01/19 [History Last Taken 06/30/19] fish oil-dha-epa 1,200 mg-144 mg-216 mg capsule 1 cap PO TID supplement 10/31/22 [History Last Taken Unknown] sotalol 160 mg tablet 160 mg PO BID 10/31/22 [History Last Taken Unknown] zolpidem 5 mg tablet (Ambien) 2.5 mg PO QHS PRN 10/31/22 [History Last Taken Unknown] clonazepam 1 mg tablet 1 mg PO DAILY anxiety 30 days #30 tabs 01/02/23 [Rx Last Taken Unknown] escitalopram oxalate 10 mg tablet (Lexapro) 10 mg PO DAILY anxiety #30 tabs 01/02/23 [Rx Last Taken Unknown] Allergy/AdvReac Type Severity Reaction Status Date / Time amlodipine [From [facility]] AdvReac Intermediate Rash Verified 03/27/23 16:14 Family History Grandfather Heart disease Father Heart disease Surgical History History of angioplasty History of appendectomy Social History Smoking Status: Current every day smoker tobacco type: cigarettes Tobacco: How many years used: 57 Electronic Cigarette Use: not used second hand exposure: Yes quit status: has quit before counseling given: provider counseling alcohol intake: never substance use type: does not use caffeine: No what type of physical activity do you participate in: none ROS ROS ED Constitutional Constitutional ED: Denies chills, fever(s), subjective, sweats or weight loss Eyes Eyes: Denies blurry vision, change in vision or diplopia ENT ENT ED: Denies ear pain, rhinorrhea or sore throat Cardiovascular Cardiovascular: Denies chest pain, orthopnea, palpitations or racing heartbeat Respiratory/Chest Respiratory/Chest: Denies cough, dyspnea, dyspnea on exertion or orthopnea Gastrointestinal Gastrointestinal: Denies abdominal pain, diarrhea, melena, nausea or vomiting Genitourinary Genitourinary ED: Denies dysuria, hematuria or urinary frequency Integumentary Denies rash Neurologic Neurologic: Denies headache(s) or paresthesias Endocrine Endocrinology: Denies cold intolerance or heat intolerance Hematologic/Lymphatic Hematologic/Lymphatic: Reports systems reviewed and no addt'l complaints, except as documented EXAM Physical Exam Const Vital Signs: 03/27/23 16:15 03/27/23 17:46 03/27/23 21:11 Temperature 97.6 F L 97.3 F L Temperature Source Temporal Temporal Pulse Rate 73 79 Respiratory Rate 17 18 16 Blood Pressure 115/67 109/71 Blood Pressure Mean 83 83 Blood Pressure Source Monitor Blood Pressure Position Supine Blood Pressure Location Right Arm Pulse Ox 99 92 Oxygen Delivery Method Room Air Nasal Cannula Oxygen Flow Rate (L/min) 2 03/27/23 21:16 03/27/23 21:31 Temperature 97.6 F L 97.5 F L Temperature Source Temporal Temporal Pulse Rate 77 77 Respiratory Rate 16 16 Blood Pressure 106/75 107/73 Blood Pressure Mean 85 84 Blood Pressure Source Monitor Monitor Blood Pressure Position Supine Supine Blood Pressure Location Right Arm Right Arm Pulse Ox 94 94 Oxygen Delivery Method Nasal Cannula Nasal Cannula Oxygen Flow Rate (L/min) 2 2 Positive well nourished, well developed and obese Constitutional Narrative: PalePatient has bilateral periorbital edema.. General Appearance ED: well developed, NAD and pallor; Negative for cyanotic or diaphoretic Nutritional Appearance: obese HEENT Reports moist mucous membranes HEENT Narrative: Ears are normal. Nares are patent. Posterior pharynx is normal. Patient's gums are pale Eyes PERRL and EOMs intact bilaterally General Eye ED: Yes pale conjunctiva; Negative for scleral icterus Neck no lymphadenopathy, supple and no JVD Resp normal respiratory effort and clear to auscultation bilaterally Cardio regular rate, regular rhythm, S1 normal heart sound, S2 normal heart sound and no murmurs GI normal to inspection, nondistended, normoactive bowel sounds, non-tender, non- distended and no masses; Negative for hepatosplenomegaly GI Narrative: There is no fissures, fistulas or hemorrhoids noted. Stool is brown. Back/Spine no CVA tenderness Thoracic Spine / Upper Back: Negative for thoracic spinal tenderness Lumbar Spine / Lower Back: Negative for lumbar spinal tenderness Extremity General Extremety ED: Yes edema; Negative for tenderness General Extremity: edema Neuro oriented x3 and CN's II-XII intact bilaterally Sensorium / Orientation: alert Psych mental status grossly normal Skin no rashes or lesions noted and no wounds General Skin Exam: pallor; Negative for elasticity normal or jaundice MDM MDM MDM Narrative Medical decision making narrative: Aced on physical exam patient's hemoglobin is between 7 and 6. Repeat CBC was obtained. Stool for Hemoccult testing was obtained. Patient was typed and screened. If hemoglobin is below 8 we will transfuse since he is symptomatic. If his stool is positive he will need outpatient follow-up for colonoscopy. We will also need to contact his doctor to determine why he on anticoagulant since he does not know why he is on an anticoagulant. Lab Data Attestation: I reviewed the patient's lab results. Lab results narrative: CBC reveals microcytic anemia acute on chronic. Patient was typed and crossed for 1 unit of blood. Stool for occult blood is positive. Patient's physician Dr. Rodriguez was paged. Plan is to hold Xarelto and he will need referral to GI for anemia due to blood loss. Labs: Laboratory Results - last 24 hr 03/27/23 03/27/23 03/27/23 18:10 18:50 19:47 WBC 6.7 RBC 3.52 L Hgb 7.1 L Hct 26.8 L MCV 76.1 L MCH 20.2 L MCHC 26.5 L RDW Std Deviation 55.5 H RDW Coeff of Jake 20.3 H Plt Count 414 MPV 10.2 Immature Gran % (Auto) 0.300 Neut % (Auto) 65.0 Lymph % (Auto) 20.7 Wilkes % (Auto) 10.6 H Eos % (Auto) 2.2 Baso % (Auto) 1.2 H Absolute Neuts (auto) 4.3 Absolute Lymphs (auto) 1.38 Nucleated RBC % 0.3 Differential Comment SCANNED Hypochromasia 1+ Anisocytosis 2+ Microcytosis 1+ Macrocytosis 1+ Sodium 142 Potassium 4.5 Chloride 113 H Carbon Dioxide 25.0 Anion Gap 4 L BUN 23 H Creatinine 1.31 H Estim Creat Clear Calc 52.69 Est GFR (MDRD) Af Amer 69 Est GFR (MDRD) Non-Af 57 L BUN/Creatinine Ratio 17.6 Glucose 76 Calcium 8.7 Blood Type Cancelled A POSITIVE Antibody Screen Cancelled NEGATIVE Crossmatch See Detail See Detail Management Discussion w/another healthcare provider: PCP (Spoke with Dr. Wiseman on-call for Dr. Lane. They will contact him and arrange for outpatient colonoscopy/EDG.) Discharge Plan Triage Chief Complaint: Abn Labs ED Provider: Manuel Wilhelm Dx/Rx/DC Orders Clinical Impression: Symptomatic anemia, CANDICE (obstructive sleep apnea), History of LV Thrombus, Coronary artery disease, Signs and symptoms of anemia, GI (gastrointestinal bleed), Anticoagulant long-term use Instructions: When You Need a Blood ..., GI Bleeding Causes and Tests Prescriptions: No Action rivaroxaban [Xarelto] 20 mg tablet 20 mg PO DAILY sotalol 160 mg tablet 160 mg PO BID zolpidem [Ambien] 5 mg tablet 2.5 mg PO QHS PRN clonazepam 1 mg tablet 1 mg PO DAILY 30 Days Qty: 30 2RF escitalopram oxalate [Lexapro] 10 mg tablet 10 mg PO DAILY Qty: 30 2RF meclizine 25 MG tablet 25 - 50 mg PO Q8H PRN PRN (Reason: Dizziness) Patient Comments: STARTED 05-20-17 pantoprazole 40 MG tablet 40 mg PO QODAY Rx Instructions: EVERY OTHER DAY atorvastatin 40 MG tablet 40 mg PO DAILY spironolactone 25 MG tablet 12.5 mg PO DAILY ramipril 5 mg capsule 5 mg PO QHS empagliflozin 10 MG tablet 10 mg PO DAILY metoprolol succinate 100 MG tablet extended release 24 hr 100 mg PO DAILY aspirin 81 MG tablet,delayed release (DR/EC) 81 mg PO DAILY@1700 metformin 500 MG tablet extended release 24 hr 500 mg PO BID Patient Comments: TAKE 1 TABLET BY MOUTH TWICE DAILY fish oil-dha-epa 1,200-144-216 mg capsule 1 cap PO TID Primary Care Provider: Cathy Kellogg Referrals: Cathy Kellogg, [Primary Care Provider] - As soon as possible Disposition Disposition: Home, Self Care
[2023-03-27 18:18] LABS: Absolute Lymphocyte Count 1.38 X10^3/uL (0.83-4.51); Absolute Neutrophil Count 4.3 X10^3/uL (2.0-7.7); Basophil# 0.08 X10^3/uL; Basophil% 1.2 % (0-1); Eosinophil# 0.15 X10^3/uL; Eosinophils% 2.2 % (0-5); Hematocrit 26.8 % (40-54); Hemoglobin 7.1 g/dL (13.0-16.5); Lymphocyte # 1.38 X10^3/ul (0.83-4.51); Lymphocyte % 20.7 % (19-41); Mean Corp Hgb Conc 26.5 g/dL (32-36); Mean Corpuscular Hgb 20.2 pg (27.0-32.0); Mean Corpuscular Volume 76.1 fL (80-94); Mean Platelet Vol. 10.2 fl (6.2-12.0); Monocyte# 0.71 X10^3/uL; Monocyte% 10.6 % (0-10); NRBC Flagged by Analyzer 0.3 % (0-5); Neutrophil # 4.33 X10^3/uL (2.7-7.7); POSITIVE MORPHOLOGY YES; Platelet Count 414 K/mm3 (150-450); RBC Distribution Width CV 20.3 % (11.6-14.6); RBC Distribution Width SD 55.5 fl (35.1-43.9); Red Blood Count 3.52 M/mm3 (4.6-6.2); White Blood Count 6.7 K/mm3 (4.4-11.0)
[2023-03-27 18:20] LABS: Differential Indicated SCAN CRITERIA MET
[2023-03-27 18:44] LABS: Anion Gap 4 (5-15); BUN 23 mg/dL (7-18); BUN/Creat Ratio 17.6 RATIO (10-20); Calcium,Total 8.7 mg/dL (8.5-10.1); Chloride 113 mmol/L (98-107); Creatinine, Serum 1.31 mg/dL (0.70-1.30); EST Glomerular Filtration Rate 57 mL/min (>60); Est Glom Filt Rate - Afr Amer 69 mL/min (>60); Estimated Creatinine Clearance 52.69 ml/min; Glucose 76 mg/dL (74-106); Potassium 4.5 mmol/L (3.5-5.1); Sodium Level 142 mmol/L (136-145)
[2023-03-27 19:03] LABS: Anisocytosis 2+; Differential Comment SCANNED; Hypochromasia 1+; Macrocytosis 1+; Microcytosis 1+
--- NOTE | 2023-03-27 23:00 | ED.RN ---
at 2230 pt vs and iv site were checked. WNL. pt assisted up to bathroom and back to bed with Blood still infusing. Pt called out at 2300 stating he had a bump by IV site. Blood stopped. attempted to aspirate IV and flush. Unsuccesful. IV removed. Pressure/warm compress applied to site. New IV Rt hand. Blood transfusion started again.
[2023-03-28 00:41] VITALS: BP 107/68; PULSE 73; RESP 18; TEMP 36.6; O2SAT 94
== END 2023-03-28 00:44 | disposition home or self-care (01) ==
PROVIDERS: Emergency Provider Emergency Medicine; PCP Internal Medicine; Visit Provider Emergency Medicine
DX: D64.9 Anemia, unspecified (principal); J44.9 Chronic obstructive pulmonary disease, unspecified; E11.9 Type 2 diabetes mellitus without complications; G47.33 Obstructive sleep apnea (adult) (pediatric); I10 Essential (primary) hypertension; I25.10 Atherosclerotic heart disease of native coronary artery without angina pectoris; F17.210 Nicotine dependence, cigarettes, uncomplicated; K92.2 Gastrointestinal hemorrhage, unspecified; Z79.01 Long term (current) use of anticoagulants; D75.1 Secondary polycythemia; Z79.899 Other long term (current) drug therapy; K21.9 Gastro-esophageal reflux disease without esophagitis; Z79.82 Long term (current) use of aspirin; Z79.84 Long term (current) use of oral hypoglycemic drugs; G47.00 Insomnia, unspecified; Z95.810 Presence of automatic (implantable) cardiac defibrillator; F41.1 Generalized anxiety disorder
CPT/HCPCS: 36430; 80048; 82274; 85025; 86850; 86900; 86901; 86920; 86922; 99284; J7030; P9016; A4216

== ENCOUNTER → 2023-04-03 | Outpatient (CLI) | payer MEDICARE, OTHER, SELFPAY ==
[2023-04-03 15:35] LABS: Absolute Lymphocyte Count 1.21 X10^3/uL (0.83-4.51); Absolute Neutrophil Count 4.7 X10^3/uL (2.0-7.7); Basophil# 0.07 X10^3/uL; Eosinophil# 0.15 X10^3/uL; Eosinophils% 2.2 % (0-5); Hematocrit 29.4 % (40-54); Hemoglobin 7.7 g/dL (13.0-16.5); Lymphocyte # 1.21 X10^3/ul (0.83-4.51); Lymphocyte % 17.8 % (19-41); Mean Corp Hgb Conc 26.2 g/dL (32-36); Mean Corpuscular Hgb 19.6 pg (27.0-32.0); Mean Platelet Vol. 10.2 fl (6.2-12.0); Monocyte# 0.59 X10^3/uL; Monocyte% 8.7 % (0-10); NRBC Flagged by Analyzer 0.3 % (0-5); Neutrophil # 4.73 X10^3/uL (2.7-7.7); Neutrophil % 69.9 % (47-70); POSITIVE MORPHOLOGY YES; Platelet Count 417 K/mm3 (150-450); RBC Distribution Width CV 21.3 % (11.6-14.6); RBC Distribution Width SD 57.7 fl (35.1-43.9); Red Blood Count 3.92 M/mm3 (4.6-6.2); White Blood Count 6.8 K/mm3 (4.4-11.0)
[2023-04-03 15:57] LABS: Differential Indicated SCAN CRITERIA MET
[2023-04-03 15:58] LABS: Anisocytosis 1+; Microcytosis RARE; Platelet Estimate ADEQUATE (ADEQ); Red Cell Morphology N CHROM NORMAL (NORM C&C)
[2023-04-03 15:59] LABS: Acanthocytes RARE; Ovalocyte 1+
== END | disposition home or self-care (01) ==
PROVIDERS: PCP Internal Medicine; Referring Provider Internal Medicine; Visit Provider Internal Medicine
DX: D64.9 Anemia, unspecified (principal)
CPT/HCPCS: 85025

== ENCOUNTER 2023-04-04 13:59 | Inpatient (IN) | payer MEDICARE, OTHER, SELFPAY ==
[2023-04-04] VITALS (12 sets, daily range): BP systolic 87–117; BP diastolic 57–87; PULSE 53–81; RESP 14–20; TEMP 35.8–37.1; O2SAT 90–100; BMI 29.7; BMI 29.9
--- NOTE | 2023-04-04 15:13 | EKG12_ITS ---
Test Reason : AB LABS Blood Pressure : / mmHG Vent. Rate : 076 BPM Atrial Rate : 076 BPM P-R Int : 140 ms QRS Dur : 176 ms QT Int : 496 ms P-R-T Axes : 000 237 103 degrees QTc Int : 558 ms AV dual-paced rhythm Abnormal ECG When compared with ECG of 01-JUL-2019 13:45, Premature ventricular complexes are no longer Present Vent. rate has increased BY 15 BPM Confirmed by ISH MOONEY, CLARK ([id number]), electronic news gathering editor ELVIE BARROW ([id number]) on 04/09/2023 10:20:14 AM Referred By: PANKAJ Confirmed By:CLARK DENG MD
--- NOTE | 2023-04-04 15:19 | EDS_ITS ---
HPI History of Present Illness Chief Complaint: Abn Labs Informant: patient and spouse/S.O. Narrative Narrative: Patient presents with low him globin and generalized weakness. Patient was seen here about a week ago for the same. He had positive occult blood in his stool but he had not been having black or bloody bowel movements. He was found to be anemic. Because he was symptomatic he was transfused with a single unit. Call to his private physician was made. But patient has not been able to get into see his bulk fluids handler or physician in the meantime. On Friday the patient did have the first and only black stool. He states was back to normal brown and it was normal today. He has no abdominal pain. He contacted his physician and blood work was done yesterday. They called him today and said his hemoglobin was low so he needs to go to the ER. Patient does have heart disease. He has a pacer. He is on Xarelto and he has not stopped it. His shag truck driver is somewhere near [facility]. He has not yet been contacted. Patient does not know if he is ever had atrial fibrillation or flutter. He states he is on the Xarelto for my heart. But he does not know the specific reason. He denies prior GI bleeds. His last colonoscopy he thinks was about 2 years ago and he thinks he had an endoscopy 2 or 3 years ago but he is not sure. [facility] Medical History Alcohol abuse, in remission Anxiety CAD (coronary artery disease) Cardiac defibrillator in place Cataract, bilateral COPD (chronic obstructive pulmonary disease) Diabetes mellitus Encounter for screening for malignant neoplasm of lung MIRANDA (generalized anxiety disorder) GERD (gastroesophageal reflux disease) Hidradenitis Hyperlipidemia Insomnia Panic disorder Rosacea Skin lesions Vitamin D deficiency Home Medications atorvastatin 40 mg tablet 40 mg PO QPM CHOLESTEROL 10/17/17 [History Last Taken 04/03/23] meclizine 25 mg tablet 50 mg PO DAILY PRN DIZZINESS 10/17/17 [History Last Taken 07/01/19] pantoprazole 40 mg tablet,delayed release 40 mg PO DAILY ACID REFLUX 10/17/17 [History Last Taken 04/04/23] spironolactone 25 mg tablet 12.5 mg PO DAILY EDEMA 10/17/17 [History Last Taken 04/04/23] rivaroxaban 20 mg tablet (Xarelto) 20 mg PO QPM BLOOD THINNER 03/25/18 [History Last Taken 04/04/23] aspirin 81 mg tablet,delayed release 81 mg PO DAILY@1700 [facility] 07/01/19 [History Last Taken 04/03/23] empagliflozin 10 mg tablet 10 mg PO QPM DIABETES 07/01/19 [History Last Taken 04/03/23] metformin 500 mg tablet,extended release 24 hr 500 mg PO QPM DIABETES 07/01/19 [History Last Taken 04/03/23] metoprolol succinate 100 mg tablet,extended release 24 hr 100 mg PO QPM BLOOD PRESSURE 07/01/19 [History Last Taken 04/03/23] fish oil-dha-epa 1,200 mg-144 mg-216 mg capsule 1 cap PO DAILY SUPPLEMENT 10/31/22 [History Last Taken 04/04/23] sotalol 160 mg tablet 160 mg PO BID AFIB 10/31/22 [History Last Taken 04/04/23] clonazepam 1 mg tablet 1 mg PO DAILY ANXIETY 30 days #30 tabs 01/02/23 [Rx Last Taken 04/04/23] escitalopram oxalate 10 mg tablet (Lexapro) 10 mg PO DAILY DEPRESSION #30 tabs 01/02/23 [Rx Last Taken 04/04/23] ascorbic acid (vitamin C) 500 mg tablet 500 mg PO DAILY SUPPLEMENT 04/04/23 [History Last Taken 04/04/23] ketoconazole 2 % shampoo 1 applic topical QODAY 04/04/23 [History Last Taken 04/03/23] menthol 1 applic topical QHS KNEE AND HANDS 04/04/23 [History Last Taken 04/03/23] ramipril 2.5 mg capsule 2.5 mg PO QPM BLOOD PRESSURE 04/04/23 [History Last Taken 04/03/23] Allergy/AdvReac Type Severity Reaction Status Date / Time amlodipine [From [facility]] AdvReac Intermediate Rash Verified 04/04/23 14:01 Family History Grandfather Heart disease Father Heart disease Surgical History History of angioplasty History of appendectomy Social History Smoking Status: Current every day smoker tobacco type: cigarettes Tobacco: How many years used: 57 Electronic Cigarette Use: not used second hand exposure: Yes quit status: has quit before counseling given: provider counseling alcohol intake: never substance use type: does not use caffeine: No what type of physical activity do you participate in: none ROS ROS ED ROS Narrative A complete review of systems was performed and is negative except as documented in the history of present illness. Some specific details below. Constitutional: No recent fevers or chills. He does have malaise and overall decreased energy. EYE: No visual complaints or pain. ENT: No difficulty swallowing. No swelling. No pain. CV: No chest pain or palpitations. Respiratory: No dyspnea. No hemoptysis. No difficulty taking breaths. He states he gets tired with activity but not specifically short of breath. GI: Please see history of present illness. No pain at any time. He is eating and drinking moving bowels. He had a single black slightly greasy bowel movement on Friday but not prior to or since then. : No frequency dysuria or hematuria. Musculoskeletal: No recent trauma. No pains. Skin: No rash. Nondiaphoretic. Neuro: No focal weakness or numbness. He does have generalized weakness and decreased energy. Endocrine: No polyuria or polydipsia. EXAM Physical Exam Narrative Exam Narrative: CONSTITUTIONAL: Patient is nontoxic in appearance. The patient looks comfortable. But he does look a bit pale. HEENT: No notable trauma. Mucous membranes moist. No sinus tenderness. No indication of pain with swallowing. EYES: No conjunctival injection. No proptosis. He does have pale conjunctiva. CARDIOVASCULAR: Regular rate. Regular rhythm. No notable murmur. No JVD. On the monitor, his rate is at about 70 and is paced. They had about 53 when he came into the ED but he is not there now. RESPIRATORY: No respiratory distress. Breathing is unlabored. No wheezes. No rhonchi. No rales. No pain with a deep breath. Saturations are normal at 99% on room air showing no hypoxia. GASTROINTESTINAL: Not distended. Bowel sounds are normal. No tenderness. No gua rding. No rebound. No palpable mass. No bruit. Hemoccult was not done at this time. He has known black stools, he has known hemorrhoids. He is on blood thinners. He had a positive Hemoccult last week even when his stools were not black. I suspect they will be positive today. GENITOURINARY: No tenderness over the bladder. No CVA tenderness. MUSCULOSKELETAL: Atraumatic. No tenderness. NEUROLOGICAL: Patient is alert and appropriate. No focal deficit noted. SKIN: No noted rashes. No diaphoresis. He does have a few areas of ecchymosis that are consistent with being on Xarelto. PSYCHIATRIC: Patient is calm. Mood is appropriate. Const Vital Signs: 04/04/23 14:01 04/04/23 16:51 04/04/23 16:52 Temperature 96.4 F L Temperature Source Temporal Pulse Rate 53 L 69 Respiratory Rate 18 14 Blood Pressure 87/61 L 103/73 103/73 Blood Pressure Mean 69 83 83 Pulse Ox 99 97 Oxygen Delivery Method Room Air Nasal Cannula Oxygen Flow Rate (L/min) 2 04/04/23 17:07 04/04/23 17:20 Temperature 97.8 F 98 F Temperature Source Oral Oral Pulse Rate 71 81 Respiratory Rate 20 H 16 Blood Pressure 107/87 H Blood Pressure Mean 93 Pulse Ox 96 96 Oxygen Delivery Method Nasal Cannula Nasal Cannula Oxygen Flow Rate (L/min) 2 MDM MDM MDM Narrative Medical decision making narrative: Patient CBC does show a low hemoglobin at 7.0. This is lower than he was when he had transfusion last week. Platelets are normal. White count is normal. Patient's electrolytes do show mild elevation in his creatinine at 1.3. BUN is only minimally up at 19. Patient's liver function test show no marked abnormalities. Patient's blood type is a positive. With his weakness, 1 low blood pressure, worsening anemia with symptoms he is transfused here. Patient has received good care. He had good follow-up planned but has not been able to get in to get the studies needed. I think he does need to come in the hospital. This is failure of outpatient management. I was able to talk to bulk fluids handler, Dr. Ledesma. He is actually going to do a scope on the patient this evening as the patient last ate a single orange at 11:00 th is morning. I also discussed case with the hospitalist. Patient will be admitted. Lab Data Attestation: I reviewed the patient's lab results. Labs: Laboratory Results - last 24 hr 04/04/23 04/04/23 15:30 15:30 WBC 6.4 RBC 3.53 L Hgb 7.0 L Hct 27.1 L MCV 76.8 L MCH 19.8 L MCHC 25.8 L RDW Std Deviation 59.0 H RDW Coeff of Jake 21.3 H Plt Count 407 MPV 10.9 Immature Gran % (Auto) 0.300 Neut % (Auto) 67.3 Lymph % (Auto) 17.3 L [place] % (Auto) 11.3 H Eos % (Auto) 2.7 Baso % (Auto) 1.1 H Absolute Neuts (auto) 4.3 Absolute Lymphs (auto) 1.11 Nucleated RBC % 0.3 Platelet Estimate SLT INC RBC Morphology N CHROM Hypochromasia 1+ Anisocytosis 1+ Microcytosis 1+ Ovalocytes RARE Acanthocytes (Spur) RARE Sodium 142 Potassium 4.3 Chloride 112 H Carbon Dioxide 28.0 Anion Gap 2 L BUN 19 H Creatinine 1.31 H Estim Creat Clear Calc 52.69 Est GFR (MDRD) Af Amer 69 Est GFR (MDRD) Non-Af 57 L BUN/Creatinine Ratio 14.5 Glucose 100 Calcium 8.4 L Total Bilirubin 0.90 AST 12 L ALT 16 Alkaline Phosphatase 61 Total Protein 5.9 L Albumin 3.0 L Globulin 2.9 Albumin/Globulin Ratio 1.0 Blood Type A POSITIVE Antibody Screen NEGATIVE Crossmatch See Detail See Detail EKG Initial EKG: Comments: Plan up interpretation the patient's EKG shows a paced rhythm with a rate of 76. It is not AV sequential pacer. Typical bundle pattern. No acute ST elevation or depression. No noted ectopy. [place] interval is normal as it is paced timed. QRS duration and QTc are long. Management Discussion w/another healthcare provider: Hospitalist and Automatic Quilling Machine Operator Discharge Plan Dx/Rx/DC Orders Clinical Impression: Medication induced coagulopathy, Gastrointestinal bleed, Symptomatic anemia Disposition Disposition: Acute Care Hospital [facility] Discharge Date/Time: 04/04/23 18:26
[2023-04-04 16:20] LABS: Absolute Lymphocyte Count 1.11 X10^3/uL (0.83-4.51); Absolute Neutrophil Count 4.3 X10^3/uL (2.0-7.7); Basophil# 0.07 X10^3/uL; Basophil% 1.1 % (0-1); Eosinophil# 0.17 X10^3/uL; Eosinophils% 2.7 % (0-5); Hematocrit 27.1 % (40-54); Lymphocyte # 1.11 X10^3/ul (0.83-4.51); Lymphocyte % 17.3 % (19-41); Mean Corp Hgb Conc 25.8 g/dL (32-36); Mean Corpuscular Hgb 19.8 pg (27.0-32.0); Mean Corpuscular Volume 76.8 fL (80-94); Mean Platelet Vol. 10.9 fl (6.2-12.0); Monocyte# 0.72 X10^3/uL; Monocyte% 11.3 % (0-10); NRBC Flagged by Analyzer 0.3 % (0-5); Neutrophil # 4.31 X10^3/uL (2.7-7.7); Neutrophil % 67.3 % (47-70); POSITIVE MORPHOLOGY YES; Platelet Count 407 K/mm3 (150-450); RBC Distribution Width CV 21.3 % (11.6-14.6); Red Blood Count 3.53 M/mm3 (4.6-6.2); White Blood Count 6.4 K/mm3 (4.4-11.0)
[2023-04-04 16:22] LABS: Differential Indicated SCAN CRITERIA MET
[2023-04-04 16:27] LABS: AST(SGOT) 12 U/L (15-37); Alanine Aminotransfer ALT/SGPT 16 U/L (16-61); Alkaline Phosphatase 61 U/L (45-117); Anion Gap 2 (5-15); BUN 19 mg/dL (7-18); BUN/Creat Ratio 14.5 RATIO (10-20); Calcium,Total 8.4 mg/dL (8.5-10.1); Chloride 112 mmol/L (98-107); Creatinine, Serum 1.31 mg/dL (0.70-1.30); EST Glomerular Filtration Rate 57 mL/min (>60); Est Glom Filt Rate - Afr Amer 69 mL/min (>60); Estimated Creatinine Clearance 52.69 ml/min; Globulin 2.9 g/dL (2.2-4.2); Glucose 100 mg/dL (74-106); Potassium 4.3 mmol/L (3.5-5.1); Protein, Total 5.9 g/dL (6.4-8.2); Sodium Level 142 mmol/L (136-145)
[2023-04-04 16:54] LABS: Acanthocytes RARE; Anisocytosis 1+; Hypochromasia 1+; Microcytosis 1+; Ovalocyte RARE; Platelet Estimate SLT INC (ADEQ); Red Cell Morphology N CHROM NORMAL (NORM C&C)
--- NOTE | 2023-04-04 18:00 | PCM.HP.STD ---
HPI - General General Date of Admission: 04/04/23 Date of Service: 04/04/23 Chief Complaint: Symptomatic anemia HPI Narrative MISSY MUÑOZ, is a 72 M with history of coronary artery disease, COPD, CANDICE on BiPAP, hypertension, anxiety, GERD, LV thrombus on Xarelto, tobacco use who presented to [facility] 04/04/2023 with increasing fatigue and was found to have a hemoglobin of 7 with recent black tarry stools. GI contacted and they were agreeable to perform endoscopy, hospitalist consulted for admission. Patient evaluated at bedside and he reports he has been increasingly tired over the past couple weeks, he was seen in the ED here about a week ago and was given a transfusion and discharged to follow-up with his GI doctor and primary care doctor however he has been unable to do so. On Friday had an episode of black tarry bowel movement and stool is now returned to normal. No abdominal pain or tenderness, no nausea vomiting, denies any other complaints at this time. [facility] Medical History Alcohol abuse, in remission Anxiety CAD (coronary artery disease) Cardiac defibrillator in place Cataract, bilateral COPD (chronic obstructive pulmonary disease) Diabetes mellitus Encounter for screening for malignant neoplasm of lung MIRANDA (generalized anxiety disorder) GERD (gastroesophageal reflux disease) Hidradenitis Hyperlipidemia Insomnia Panic disorder Rosacea Skin lesions Vitamin D deficiency Home Medications atorvastatin 40 mg tablet 40 mg PO QPM CHOLESTEROL 10/17/17 [History Last Taken 04/03/23] meclizine 25 mg tablet 50 mg PO DAILY PRN DIZZINESS 10/17/17 [History Last Taken 07/01/19] pantoprazole 40 mg tablet,delayed release 40 mg PO DAILY ACID REFLUX 10/17/17 [History Last Taken 04/04/23] spironolactone 25 mg tablet 12.5 mg PO DAILY EDEMA 10/17/17 [History Last Taken 04/04/23] rivaroxaban 20 mg tablet (Xarelto) 20 mg PO QPM BLOOD THINNER 03/25/18 [History Last Taken 04/04/23] aspirin 81 mg tablet,delayed release 81 mg PO DAILY@1700 [facility] 07/01/19 [History Last Taken 04/03/23] empagliflozin 10 mg tablet 10 mg PO QPM DIABETES 07/01/19 [History Last Taken 04/03/23] metformin 500 mg tablet,extended release 24 hr 500 mg PO QPM DIABETES 07/01/19 [History Last Taken 04/03/23] metoprolol succinate 100 mg tablet,extended release 24 hr 100 mg PO QPM BLOOD PRESSURE 07/01/19 [History Last Taken 04/03/23] fish oil-dha-epa 1,200 mg-144 mg-216 mg capsule 1 cap PO DAILY SUPPLEMENT 10/31/22 [History Last Taken 04/04/23] sotalol 160 mg tablet 160 mg PO BID AFIB 10/31/22 [History Last Taken 04/04/23] clonazepam 1 mg tablet 1 mg PO DAILY ANXIETY 30 days #30 tabs 01/02/23 [Rx Last Taken 04/04/23] escitalopram oxalate 10 mg tablet (Lexapro) 10 mg PO DAILY DEPRESSION #30 tabs 01/02/23 [Rx Last Taken 04/04/23] ascorbic acid (vitamin C) 500 mg tablet 500 mg PO DAILY SUPPLEMENT 04/04/23 [History Last Taken 04/04/23] ketoconazole 2 % shampoo 1 applic topical QODAY 04/04/23 [History Last Taken 04/03/23] menthol 1 applic topical QHS KNEE AND HANDS 04/04/23 [History Last Taken 04/03/23] ramipril 2.5 mg capsule 2.5 mg PO QPM BLOOD PRESSURE 04/04/23 [History Last Taken 04/03/23] Allergy/AdvReac Type Severity Reaction Status Date / Time amlodipine [From [facility]] AdvReac Intermediate Rash Verified 04/04/23 14:01 Family History Grandfather Heart disease Father Heart disease Surgical History History of angioplasty History of appendectomy Social History Smoking Status: Current every day smoker tobacco type: cigarettes Tobacco: How many years used: 57 Electronic Cigarette Use: not used second hand exposure: Yes quit status: has quit before counseling given: provider counseling alcohol intake: never substance use type: does not use caffeine: No what type of physical activity do you participate in: none ROS ROS Narrative General: Denies fever/chills HENT: Denies headache, denies stuffy nose, denies sore throat EYES: Denies changes in vision Resp: Denies cough, denies shortness of breath Cardiac: Denies chest pain GI: Denies abdominal pain, black to stools on Friday, denies nausea/vomiting : Denies changes in urination Extremity: Denies swelling MSK: Denies weakness Neuro: Denies any numbness/tingling Heme: Denies any bleeding or bruising Skin: Denies rashes Psychiatric: No complaints voiced Vital Signs Vital Signs Vital Signs: 04/04/23 14:01 04/04/23 16:51 04/04/23 16:52 Temperature 96.4 F L Temperature Source Temporal Pulse Rate 53 L 69 Respiratory Rate 18 14 Blood Pressure 87/61 L 103/73 103/73 Blood Pressure Mean 69 83 83 Pulse Ox 99 97 Oxygen Delivery Method Room Air Nasal Cannula Oxygen Flow Rate (L/min) 2 04/04/23 17:07 04/04/23 17:20 Temperature 97.8 F 98 F Temperature Source Oral Oral Pulse Rate 71 81 Respiratory Rate 20 H 16 Blood Pressure 107/87 H Blood Pressure Mean 93 Pulse Ox 96 96 Oxygen Delivery Method Nasal Cannula Nasal Cannula Oxygen Flow Rate (L/min) 2 Weight Weight: 96.615 kg Body Mass Index (BMI) 29.7 Physical Exam Narrative General: Alert, oriented, no apparent distress HEENT: Atraumatic, normocephalic Eyes: Anicteric, normal conjunctiva, extraocular movements grossly intact Neck: Supple Respiratory: Scattered expiratory wheezes, normal respiratory effort Cardiovascular: Regular rate and rhythm GI: Soft, nontender, nondistended Extremities: No significant pitting edema Musculoskeletal: Moving all extremities Neuro: No overt focal neurological deficits Skin: No rashes appreciated Psych: Cooperative Results Lab / Micro Data 04/04/23 15:30 04/04/23 15:30 Labs: Laboratory Results - last 24 hr 04/04/23 15:30: WBC 6.4, RBC 3.53 L, Hgb 7.0 L, Hct 27.1 L, MCV 76.8 L, MCH 19.8 L, MCHC 25.8 L, RDW Std Deviation 59.0 H, RDW Coeff of Jake 21.3 H, Plt Count 407, MPV 10.9, Immature Gran % (Auto) 0.300, Neut % (Auto) 67.3, Lymph % (Auto) 17.3 L, [place] % (Auto) 11.3 H, Eos % (Auto) 2.7, Baso % (Auto) 1.1 H, Absolute Neuts (auto) 4.3, Absolute Lymphs (auto) 1.11, Nucleated RBC % 0.3, Platelet Estimate SLT INC, RBC Morphology N CHROM, Hypochromasia 1+, Anisocytosis 1+, Microcytosis 1+, Ovalocytes RARE, Acanthocytes (Spur) RARE, Sodium 142, Potassium 4.3, Chloride 112 H, Carbon Dioxide 28.0, Anion Gap 2 L, BUN 19 H, Creatinine 1.31 H, Estim Creat Clear Calc 52.69, Est GFR (MDRD) Af Amer 69, Est GFR (MDRD) Non-Af 57 L, BUN/Creatinine Ratio 14.5, Glucose 100, Calcium 8.4 L, Total Bilirubin 0.90, AST 12 L, ALT 16, Alkaline Phosphatase 61, Total Protein 5.9 L, Albumin 3.0 L, Globulin 2.9, Albumin/Globulin Ratio 1.0, Blood Type A POSITIVE, Antibody Screen NEGATIVE, Crossmatch See Detail Assessment & Plan Assessment/Plan (1) Anemia: QUALIFIERS: Anemia type: unspecified type Qualified Code(s): D64.9 - Anemia, unspecified PLAN: Plan #Acute on chronic anemia presumably acute blood loss anemia secondary to upper GI bleed -GI contacted and will take patient for upper endoscopy -IV PPI -Hold Xarelto and aspirin -N.p.o. -Type and cross and given his coronary history presume his transfusion threshold is 8 so we will transfuse a unit #CKD stage IIIa -Unclear baseline but this is unchanged from about 8 days ago #Type 2 diabetes mellitus -Glucose checks and sliding scale insulin #Anxiety -Continue home medications #CANDICE -Home BiPAP and uses 3 L O2 at bedtime. In his history it says COPD however patient told he does not have this and is not on inhalers anymore granted he did have some expiratory wheezing, no increased shortness of breath, albuterol as needed #History of LV thrombus per report -Listed in history from 2018, Xarelto held #History of CAD/ICD in place -Continue statin #Hypertension -Has been on the low side, will only continue sotalol given implications of this is discontinued for a long period of time #Tobacco use -Advise cessation -Patient declined nicotine replacement #DVT ppx: SCDs Geraldine Reinoso MD Time spent in the patient's overall evaluation,decision-making process, review of diagnostic data, adjustment of management, discussion with other providers, nursing nursing and ancillary staff involved in patient's care documentation, 56 Minutes Charges/Coding Visit Charges Inpatient E&M: 90879 Init Hosp L2
--- NOTE | 2023-04-04 18:21 | EX.PCM.CON.G ---
HPI Consult Data Date of Consult: 04/04/23 HPI Narrative Reason for Consultation: GI bleed HPI Narrative: MISSY MUÑOZ, is a 72 M who presents with anemia and generalized weakness. Patient was seen here about a week ago for the same. He had positive occult blood in his stool but he had not been having black or bloody bowel movements. He was found to be anemic. Because he was symptomatic he was transfused with a single unit. Call to his private physician was made. 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 On Friday the patient did have the first and only black stool. He states was back to normal brown and it was normal today. He has no abdominal pain. He contacted his physician and blood work was done yesterday. They called him today and said his hemoglobin was low so he needs to go to the ER. Patient does have heart disease. He has a pacer. He is on Xarelto and he has not stopped it. His wellness program administrator is somewhere near [facility]. He has not yet been contacted. Patient does not know if he is ever had atrial fibrillation or flutter. He states he is on the Xarelto for my heart. But he does not know the specific reason. He denies prior GI bleeds. His last colonoscopy he thinks was about 2 years ago and he thinks he had an endoscopy 2 or 3 years ago but he is not sure. [facility] Medical History Alcohol abuse, in remission Anxiety CAD (coronary artery disease) Cardiac defibrillator in place Cataract, bilateral COPD (chronic obstructive pulmonary disease) Diabetes mellitus Encounter for screening for malignant neoplasm of lung MIRANDA (generalized anxiety disorder) GERD (gastroesophageal reflux disease) Hidradenitis Hyperlipidemia Insomnia Panic disorder Rosacea Skin lesions Vitamin D deficiency Home Medications atorvastatin 40 mg tablet 40 mg PO QPM CHOLESTEROL 10/17/17 [History Last Taken 04/03/23] meclizine 25 mg tablet 50 mg PO DAILY PRN DIZZINESS 10/17/17 [History Last Taken 07/01/19] pantoprazole 40 mg tablet,delayed release 40 mg PO DAILY ACID REFLUX 10/17/17 [History Last Taken 04/04/23] spironolactone 25 mg tablet 12.5 mg PO DAILY EDEMA 10/17/17 [History Last Taken 04/04/23] rivaroxaban 20 mg tablet (Xarelto) 20 mg PO QPM BLOOD THINNER 03/25/18 [History Last Taken 04/04/23] aspirin 81 mg tablet,delayed release 81 mg PO DAILY@1700 HEART HEALTH 07/01/19 [History Last Taken 04/03/23] empagliflozin 10 mg tablet 10 mg PO QPM DIABETES 07/01/19 [History Last Taken 04/03/23] metformin 500 mg tablet,extended release 24 hr 500 mg PO QPM DIABETES 07/01/19 [History Last Taken 04/03/23] metoprolol succinate 100 mg tablet,extended release 24 hr 100 mg PO QPM BLOOD PRESSURE 07/01/19 [History Last Taken 04/03/23] fish oil-dha-epa 1,200 mg-144 mg-216 mg capsule 1 cap PO DAILY SUPPLEMENT 10/31/22 [History Last Taken 04/04/23] sotalol 160 mg tablet 160 mg PO BID AFIB 10/31/22 [History Last Taken 04/04/23] clonazepam 1 mg tablet 1 mg PO DAILY ANXIETY 30 days #30 tabs 01/02/23 [Rx Last Taken 04/04/23] escitalopram oxalate 10 mg tablet (Lexapro) 10 mg PO DAILY DEPRESSION #30 tabs 01/02/23 [Rx Last Taken 04/04/23] ascorbic acid (vitamin C) 500 mg tablet 500 mg PO DAILY SUPPLEMENT 04/04/23 [History Last Taken 04/04/23] ketoconazole 2 % shampoo 1 applic topical QODAY 04/04/23 [History Last Taken 04/03/23] menthol 1 applic topical QHS KNEE AND HANDS 04/04/23 [History Last Taken 04/03/23] ramipril 2.5 mg capsule 2.5 mg PO QPM BLOOD PRESSURE 04/04/23 [History Last Taken 04/03/23] Allergy/AdvReac Type Severity Reaction Status Date / Time amlodipine [From [facility]] AdvReac Intermediate Rash Verified 04/04/23 14:01 Family History Grandfather Heart disease Father Heart disease Surgical History History of angioplasty History of appendectomy Social History Smoking Status: Current every day smoker tobacco type: cigarettes Tobacco: How many years used: 57 Electronic Cigarette Use: not used second hand exposure: Yes quit status: has quit before counseling given: provider counseling alcohol intake: never substance use type: does not use caffeine: No what type of physical activity do you participate in: none ROS ROS Narrative General: Denies fever/chills HENT: Denies headache, denies stuffy nose, denies sore throat EYES: Denies changes in vision Resp: Denies cough, denies shortness of breath Cardiac: Denies chest pain GI: Denies abdominal pain, black to stools on Friday, denies nausea/vomiting : Denies changes in urination Extremity: Denies swelling MSK: Denies weakness Neuro: Denies any numbness/tingling Heme: Denies any bleeding or bruising Skin: Denies rashes Psychiatric: No complaints voiced Physical Exam Narrative General: Alert, oriented, no apparent distress HEENT: Atraumatic, normocephalic Eyes: Anicteric, normal conjunctiva, extraocular movements grossly intact Neck: Supple Respiratory: Scattered expiratory wheezes, normal respiratory effort Cardiovascular: Regular rate and rhythm GI: Soft, nontender, nondistended Extremities: No significant pitting edema Musculoskeletal: Moving all extremities Neuro: No overt focal neurological deficits Skin: No rashes appreciated Psych: Cooperative Lab / Micro Data 04/04/23 15:30 04/04/23 15:30 Labs: Laboratory Results - last 24 hr 04/04/23 15:30: WBC 6.4, RBC 3.53 L, Hgb 7.0 L, Hct 27.1 L, MCV 76.8 L, MCH 19.8 L, MCHC 25.8 L, RDW Std Deviation 59.0 H, RDW Coeff of Jake 21.3 H, Plt Count 407, MPV 10.9, Immature Gran % (Auto) 0.300, Neut % (Auto) 67.3, Lymph % (Auto) 17.3 L, [place] % (Auto) 11.3 H, Eos % (Auto) 2.7, Baso % (Auto) 1.1 H, Absolute Neuts (auto) 4.3, Absolute Lymphs (auto) 1.11, Nucleated RBC % 0.3, Platelet Estimate SLT INC, RBC Morphology N CHROM, Hypochromasia 1+, Anisocytosis 1+, Microcytosis 1+, Ovalocytes RARE, Acanthocytes (Spur) RARE, Sodium 142, Potassium 4.3, Chloride 112 H, Carbon Dioxide 28.0, Anion Gap 2 L, BUN 19 H, Creatinine 1.31 H, Estim Creat Clear Calc 52.69, Est GFR (MDRD) Af Amer 69, Est GFR (MDRD) Non-Af 57 L, BUN/Creatinine Ratio 14.5, Glucose 100, Calcium 8.4 L, Total Bilirubin 0.90, AST 12 L, ALT 16, Alkaline Phosphatase 61, Total Protein 5.9 L, Albumin 3.0 L, Globulin 2.9, Albumin/Globulin Ratio 1.0, Blood Type A POSITIVE, Antibody Screen NEGATIVE, Crossmatch See Detail Assessment & Plan Assessment/Plan (1) Anemia: QUALIFIERS: Anemia type: unspecified type Qualified Code(s): D64.9 - Anemia, unspecified PLAN: Plan 72-year-old gentleman with past medical history of COPD, CAD, history of LV thrombus on anticoagulation, AICD who presents with lower GI bleeding. Acute on chronic anemia presumably acute blood loss anemia secondary to upper GI bleed -Recommend EGD -IV PPI -Agree with holding Xarelto and aspirin -N.p.o. -Agree with gallo and leda and given his coronary history presume his transfusion threshold is 8 so we will transfuse a unit Charges/Coding Visit Charges Inpatient E&M: 07996 Init Hosp L3
--- NOTE | 2023-04-04 19:40 | OP.EGD_ITS ---
Patient Name: Cr Avelar Procedure Date: 04/04/2023 7:00 PM Date of : 1950 Age: 72 Procedure: Upper GI endoscopy Indications: Iron deficiency anemia, Melena Providers: Papito Ledesma DO Medicines: Monitored Anesthesia Care Patient Profile: This is a 72 year old male. Refer to note in patient chart for documentation of history and physical. Patient has symptoms of acute nausea. Complications: No immediate complications. Procedure: Pre-Anesthesia Assessment: - Prior to the procedure, a History and Physical was performed, and patient medications and allergies were reviewed. The risks and benefits of the procedure and the sedation options and risks were discussed with the patient. All questions were answered and informed consent was obtained. Patient identification and proposed procedure were verified by the physician in the pre-procedure area. Mental Status Examination: alert and oriented. Airway Examination: normal oropharyngeal airway and neck mobility. Respiratory Examination: clear to auscultation. CV Examination: normal. Prophylactic Antibiotics: The patient does not require prophylactic antibiotics. Prior Anticoagulants: The patient has taken no anticoagulant or antiplatelet agents. After reviewing the risks and benefits, the patient was deemed in satisfactory condition to undergo the procedure. The anesthesia plan was to use monitored anesthesia care (MAC). Immediately prior to administration of medications, the patient was re-assessed for adequacy to receive sedatives. The heart rate, respiratory rate, oxygen saturations, blood pressure, adequacy of pulmonary ventilation, and response to care were monitored throughout the procedure. The physical status of the patient was re-assessed after the procedure. After obtaining informed consent, the endoscope was passed under direct vision. Throughout the procedure, the patient's blood pressure, pulse, and oxygen saturations were monitored continuously. The gastroscope was introduced through the mouth, and advanced to the second part of duodenum. The upper GI endoscopy was accomplished without difficulty. The patient tolerated the procedure well. Scope In: 7:25:28 PM Scope Out: 7:31:11 PM Total Procedure Duration Time 0 hours 5 minutes 43 seconds Findings: The examined esophagus was normal. A small hiatal hernia was present. Five 5 mm angiodysplastic lesions with bleeding were found in the stomach. Coagulation for hemostasis using heater probe was successful. Estimated blood loss was minimal. No gross lesions were noted in the second portion of the duodenum. Impression: - Normal esophagus. - Small hiatal hernia. - Five bleeding angiodysplastic lesions in the stomach. Treated with a heater probe. - No gross lesions in the second portion of the duodenum. - No specimens collected. Recommendation: - Return patient to [facility] care. - Full liquid diet. - Continue present medications. Procedure Code(s): --- Professional --- 05757, Esophagogastroduodenoscopy, flexible, transoral; with control of bleeding, any method CPT copyright 2021 [employer]. All rights reserved. The codes documented in this report are preliminary and upon valve repairer review may be revised to meet current compliance requirements. Papito Ledesma DO 04/04/2023 7:39:31 PM This report has been signed electronically. Number of Addenda: 0 Note Initiated On: 04/04/2023 7:00 PM
--- NOTE | 2023-04-04 19:40 | OP.CCLET_ITS ---
04/04/2023 Cathy Kellogg [address] [place] [address] Re : Upper GI endoscopy procedure for Cr Avelar Dear Dr. Kellogg This procedure was performed on Tuesday, April 04, 2023. My impressions and recommendations are as follows: Impressions : - Normal esophagus. - Small hiatal hernia. - Five bleeding angiodysplastic lesions in the stomach. Treated with a heater probe. - No gross lesions in the second portion of the duodenum. - No specimens collected. Recommendations : - Return patient to [facility] for [facility] care. - Full liquid diet. - Continue present medications. My findings are described in the full procedure note, which is enclosed. If I can be of further assistance, please feel free to contact me at . Sincerely, Papito Ledesma, 04/04/2023 7:39:31 PM This report has been signed electronically.
[2023-04-04 22:07] LABS: Hematocrit 30.5 % (40-54); Hemoglobin 8.2 g/dL (13.0-16.5)
[2023-04-04] MEDS: Sodium Ferric Gluconat/Sucrose 250 MG in 0.9% Normal Saline (250mL Bag) 250 ML 135 MG IV (22:26)
[2023-04-04] MEDS: Atorvastatin Calcium 40 MG Tablet PO (22:28)
[2023-04-04] MEDS: Sotalol Hydrochloride 80 MG Tablet 160 MG PO (22:29)
[2023-04-04] MEDS: Octreotide 0.1 MG/ML ML SC (22:43)
[2023-04-04 23:35] LABS: Bedside Glucose 83 mg/dL (74-106)
[2023-04-05] MEDS: Pantoprazole Sodium 80 MG in 0.9% Normal Saline (100mL Bag) 80 ML 10 MG CONT INF (01:08)
[2023-04-05 01:33] LABS: Hematocrit 31.9 % (40-54); Hemoglobin 8.5 g/dL (13.0-16.5)
[2023-04-05 02:00] VITALS: BP 123/102; PULSE 78; RESP 18; TEMP 36.6; O2SAT 94
[2023-04-05] MEDS: Octreotide 0.1 MG/ML ML SC (06:32)
[2023-04-05 06:59] LABS: Bedside Glucose 87 mg/dL (74-106)
[2023-04-05 08:06] LABS: Absolute Lymphocyte Count 0.98 X10^3/uL (0.83-4.51); Basophil# 0.12 X10^3/uL; Basophil% 1.7 % (0-1); Eosinophil# 0.18 X10^3/uL; Eosinophils% 2.5 % (0-5); Hemoglobin 8.4 g/dL (13.0-16.5); Lymphocyte # 0.98 X10^3/ul (0.83-4.51); Lymphocyte % 13.7 % (19-41); Mean Corp Hgb Conc 27.1 g/dL (32-36); Mean Corpuscular Hgb 20.7 pg (27.0-32.0); Mean Corpuscular Volume 76.4 fL (80-94); Monocyte# 0.84 X10^3/uL; Monocyte% 11.8 % (0-10); NRBC Flagged by Analyzer 0.3 % (0-5); Neutrophil # 4.98 X10^3/uL (2.7-7.7); Neutrophil % 69.7 % (47-70); POSITIVE MORPHOLOGY YES; Platelet Count 360 K/mm3 (150-450); RBC Distribution Width CV 20.6 % (11.6-14.6); Red Blood Count 4.06 M/mm3 (4.6-6.2); White Blood Count 7.1 K/mm3 (4.4-11.0)
[2023-04-05 08:10] LABS: Differential Indicated SCAN CRITERIA MET
[2023-04-05] MEDS: Escitalopram Oxalate 10 MG Tablet PO (08:21)
[2023-04-05] MEDS: Sotalol Hydrochloride 80 MG Tablet 160 MG PO (08:21)
[2023-04-05] MEDS: Glucerna Shake 120 ML LIQUID PO (08:22)
[2023-04-05 08:23] LABS: Anion Gap 3 (5-15); BUN 16 mg/dL (7-18); BUN/Creat Ratio 13.3 RATIO (10-20); Calcium,Total 8.5 mg/dL (8.5-10.1); Chloride 112 mmol/L (98-107); EST Glomerular Filtration Rate 63 mL/min (>60); Est Glom Filt Rate - Afr Amer 76 mL/min (>60); Estimated Creatinine Clearance 55.76 ml/min; Glucose 94 mg/dL (74-106); Potassium 4.2 mmol/L (3.5-5.1); Sodium Level 145 mmol/L (136-145); Thyroid Stim Hormone (TSH) 0.48 uIU/mL (0.358-3.74)
[2023-04-05 08:25] LABS: International Normalized Ratio 1.4
[2023-04-05 08:45] LABS: Anisocytosis 1+; Hypochromasia 2+
[2023-04-05 10:01] VITALS: BP 101/70; PULSE 83; RESP 16; TEMP 36.7; O2SAT 92
[2023-04-05] MEDS: Sodium Ferric Gluconat/Sucrose 250 MG in 0.9% Normal Saline (250mL Bag) 250 ML 135 MG IV (10:19)
--- NOTE | 2023-04-05 11:03 | DS.PCM_ITS ---
Providers Date of Admission: 04/04/23 Date of Discharge: 04/05/23 Primary Care Physician: Dr. Cathy Kellogg, Consultations 04/04/23 19:13 Consult: Gastroenterology Routine Consulting Provider: [facility] Reason for Consult: GI bleed EMERGENT Consult: No MD Notified: Yes Date Notified: 04/04/23 Time Notified: 18:03 Method of Notification: ED Physician Initiated Reason For Visit: GIB Diagnosis Discharge Diagnosis (1) Anemia: Status: Acute Code(s): D64.9 - Anemia, unspecified Qualifiers: Anemia type: unspecified type Qualified Code(s): D64.9 - Anemia, u nspecified Medications at Discharge Home Medications atorvastatin 40 mg tablet 40 mg PO QPM CHOLESTEROL 10/17/17 meclizine 25 mg tablet 50 mg PO DAILY PRN DIZZINESS 10/17/17 pantoprazole 40 mg tablet,delayed release 40 mg PO DAILY ACID REFLUX 10/17/17 spironolactone 25 mg tablet 12.5 mg PO DAILY EDEMA 10/17/17 rivaroxaban 20 mg tablet (Xarelto) 20 mg PO QPM BLOOD THINNER 03/25/18 aspirin 81 mg tablet,delayed release 81 mg PO DAILY@1700 HEART HEALTH 07/01/19 empagliflozin 10 mg tablet 10 mg PO QPM DIABETES 07/01/19 metformin 500 mg tablet,extended release 24 hr 500 mg PO QPM DIABETES 07/01/19 metoprolol succinate 100 mg tablet,extended release 24 hr 100 mg PO QPM BLOOD PRESSURE 07/01/19 fish oil-dha-epa 1,200 mg-144 mg-216 mg capsule 1 cap PO DAILY SUPPLEMENT 10/31/22 sotalol 160 mg tablet 160 mg PO BID AFIB 10/31/22 clonazepam 1 mg tablet 1 mg PO DAILY ANXIETY 30 days #30 tabs 01/02/23 escitalopram oxalate 10 mg tablet (Lexapro) 10 mg PO DAILY DEPRESSION #30 tabs 01/02/23 ascorbic acid (vitamin C) 500 mg tablet 500 mg PO DAILY SUPPLEMENT 04/04/23 ketoconazole 2 % shampoo 1 applic topical QODAY 04/04/23 menthol 1 applic topical QHS KNEE AND HANDS 04/04/23 ramipril 2.5 mg capsule 2.5 mg PO QPM BLOOD PRESSURE 04/04/23 ferrous sulfate 325 mg (65 mg iron) tablet (Iron (ferrous sulfate)) 325 mg PO BID #60 tabs 04/05/23 pantoprazole 40 mg tablet,delayed release (Protonix) 40 mg PO BID #60 tabs 04/05/23 Hospital Course Operations None Procedures EGD Summary of Care Provided Minutes Spent on Discharge: 38 Hospital Course: Mr. Avelar is a 72-year-old white male who presented to the emergency department at [facility] on 04/04/2023 with abnormal labs. He was seen here about a week ago and found to have occult positive stool but had not been having black or bloody bowel movements and was anemic. At that time he was having generalized weakness. Case was discussed with the on-call physician for his primary care physician and they reported they will contact him to schedule an outpatient colonoscopy/EGD since his hemoglobin was overall stable and he was not having any signs of active bleeding. He represented to the emergency department on the because he was having increasing fatigue and was now having black tarry stools. Upon presentation he was found to have a hemoglobin of 7. Which was down from his baseline between 8 and 9 upon reviewing previous records. GI was contacted and they agreed to perform endoscopy. Black tarry bowel movements were on Friday and he reported that at the time of presentation his stool had returned to normal color. He denied any abdominal pain, tenderness nausea, vomiting or any other complaints. He is on aspirin and Xarelto at baseline and these were held on admission. He takes Xarelto for history of LV thrombus. Since he was symptomatic he was transfused 1 unit of packed red blood cells which improved his hemoglobin from 7-8.2 on recheck. Subsequent hemoglobins following were 8.5 and then 8.4 this morning which were close to his baseline. Surprisingly, his EGD was able to be done last evening which noted a normal esophagus, small hiatal hernia and 5 bleeding angiodysplastic lesions in the stomach that were treated with heater probe. No gross lesions were found to the second portion of the duodenum. He was maintained on a Protonix drip through the night and given IV iron x2 doses prior to his discharge. I discussed the case with gastroenterology, Dr. Ledesma, and he felt that since his hemoglobin was stable and he was feeling better we were able to discharge him home. He improved and stabilized more quickly than anticipated as we were able to intervene more quickly than anticipated on admission and therefore he was discharged in 24 hours from admission. It was recommended that we continue him on IV iron. We placed him on ferrous sulfate 325 mg twice daily and I advised him to take this with orange juice to improve absorption. We did discuss that this could make his stool dark. We also started Protonix 40 mg p.o. twice daily which she will continue for 2 months and then he may decrease dosing to 40 mg daily. He is to hold his aspirin for the next 2 weeks and then may restart at that time. He may continue his Xarelto. I have asked him to call his primary care physician and obtain a complete blood count to be done within the next 7 to 10 days to recheck his hemoglobin. He is to follow-up with his primary care physician within the next 1 to 2 weeks. He was able to be discharged home in stable condition on 04/05/2023. Prescriptions for the above were faxed to his local pharmacy. Discharge diagnoses: Acute upper GI bleed secondary to bleeding angiodysplastic lesions Acute on chronic anemia CKD stage IIIa DM-2 CANDICE History of LV thrombus CAD Anxiety Hypertension Hyperlipidemia Ischemic cardiomyopathy Mitral valve insufficiency Tricuspid valve insufficiency Pulmonary hypertension Tobacco abuse GERD Panic disorder History of hidradenitis Tobacco abuse Physical Exam Const alert, oriented x3, no apparent distress, no limitations and well nourished; Negative for healthy appearing Constitutional Narrative: Overweight, very pleasant, older, white male, appears older than stated age, lying in bed, appears comfortable and nontoxic General Appearance: cooperative, comfortable, well kempt and well developed Orientation / Consciousness: awake, oriented to person, oriented to place and oriented to time Exam Limitations: no limitations Nutritional Appearance: overweight HEENT normocephalic, head/scalp atraumatic and moist oral mucous membranes; Negative for hearing grossly normal bilaterally HEENT Narrative: Dentition is fair for age, Mallampati is 3, no thrush, mild hearing loss Eyes PERRL and EOMs intact bilaterally Eyes Narrative: Mild conjunctival pallor bilaterally, no scleral icterus Neck no lymphadenopathy and supple Neck Narrative: Neck is short and thick, trachea is midline, no thyroid enlargement Resp normal respiratory effort, no retractions, no use of accessory muscles and clear to auscultation bilaterally Resp Narrative: Diffusely diminished but clear Auscultation: Negative for rales, rhonchi or wheezes Cardio regular rate, regular rhythm, S1 normal heart sound, S2 normal heart sound, no murmurs, no rub, no gallops and no clicks GI normal to inspection, nondistended, normoactive bowel sounds, soft to palpation and non-tender Extremity no clubbing, cyanosis or edema Extremity Narrative: Pedal pulses are 2+ Skin no rashes or lesions noted, no wounds, skin turgor normal and no jaundice Neuro oriented x3, CN's II-XII intact bilaterally, moves all extremities and no focal motor deficits Speech: speech normal Psych affect normal Psych Narrative: Very pleasant, interacts appropriately, appears calm Weight / BMI Weight Weight: 97 kg Body Mass Index (BMI) 29.9 ABG / Lab / Microbiology Data 04/05/23 07:30 04/05/23 07:30 Laboratory: Laboratory Results - last 24 hr 04/04/23 15:30: WBC 6.4, RBC 3.53 L, Hgb 7.0 L, Hct 27.1 L, MCV 76.8 L, MCH 19.8 L, MCHC 25.8 L, RDW Std Deviation 59.0 H, RDW Coeff of Jake 21.3 H, Plt Count 407, MPV 10.9, Immature Gran % (Auto) 0.300, Neut % (Auto) 67.3, Lymph % (Auto) 17.3 L, [place] % (Auto) 11.3 H, Eos % (Auto) 2.7, Baso % (Auto) 1.1 H, Absolute Neuts (auto) 4.3, Absolute Lymphs (auto) 1.11, Nucleated RBC % 0.3, Platelet Estimate SLT INC, RBC Morphology N CHROM, Hypochromasia 1+, Anisocytosis 1+, Microcytosis 1+, Ovalocytes RARE, Acanthocytes (Spur) RARE, Sodium 142, Potassium 4.3, Chloride 112 H, Carbon Dioxide 28.0, Anion Gap 2 L, BUN 19 H, Creatinine 1.31 H, Estim Creat Clear Calc 52.69, Est GFR (MDRD) Af Amer 69, Est GFR (MDRD) Non-Af 57 L, BUN/Creatinine Ratio 14.5, Glucose 100, Calcium 8.4 L, Total Bilirubin 0.90, AST 12 L, ALT 16, Alkaline Phosphatase 61, Total Protein 5.9 L, Albumin 3.0 L, Globulin 2.9, Albumin/Globulin Ratio 1.0, Blood Type A POSITIVE, Antibody Screen NEGATIVE, Crossmatch See Detail 04/04/23 15:30: Crossmatch See Detail 04/04/23 21:45: Hgb 8.2 L, Hct 30.5 L 04/04/23 22:26: POC Glucose 83 04/05/23 01:07: Hgb 8.5 L, Hct 31.9 L 04/05/23 06:34: POC Glucose 87 04/05/23 07:30: WBC 7.1, RBC 4.06 L, Hgb 8.4 L, Hct 31.0 L, MCV 76.4 L, MCH 20.7 L, MCHC 27.1 L D, RDW Std Deviation 56.0 H, RDW Coeff of Jake 20.6 H, Plt Count 360, MPV 10.0, Immature Gran % (Auto) 0.600, Neut % (Auto) 69.7, Lymph % (Auto) 13.7 L, [place] % (Auto) 11.8 H, Eos % (Auto) 2.5, Baso % (Auto) 1.7 H, Absolute Neuts (auto) 5.0, Absolute Lymphs (auto) 0.98, Nucleated RBC % 0.3, Hypochromasia 2+, Anisocytosis 1+, PT 17.0 H, INR 1.4, Sodium 145, Potassium 4.2, Chloride 112 H, Carbon Dioxide 30.0, Anion Gap 3 L, BUN 16, Creatinine 1.20, Estim Creat Clear Calc 55.76, Est GFR (MDRD) Af Amer 76, Est GFR (MDRD) Non-Af 63, BUN/Creatinine Ratio 13.3, Glucose 94, Calcium 8.5, TSH 0.48 D/C Instructions Discharge Diet: Low fat / Low cholesterol and 1800 Calorie Control Diet Discharge Activity: Return to Normal Activity Meaningful Use Info Meaningful Use Diagnoses (Choose all that apply): None applicable Discharge Plan Admission Admit Date/Time: 04/04/23 18:01 Primary Reason for Your Visit: Symptomatic Anemia Attending Provider: Marisol Nguyen Primary Care Provider: Cathy Kellogg Consulting Providers: Geraldine Reinoso Instructions Additional Instructions / Restrictions: 1. You were found to have 5 small angiodysplastic lesions in your stomach which were bleeding. These were treated during your endoscopy. 2. Please hold your aspirin for 2 weeks and then you may restart it 3. Okay to restart your Xarelto 4. Lab work revealed that you are quite iron deficient so you were given 2 doses of IV iron while hospitalized and we started you on oral iron. Oral iron can make your stools appear darker and make you constipated. Please take this with orange juice for better absorption. 5. Please call your primary care physician and obtain an order for a complete blood count to be done within the next 7 to 10 days Discharge Orders/Prescriptions Prescriptions: New ferrous sulfate [Iron (ferrous sulfate)] 325 mg (65 mg iron) tablet 325 mg PO BID Qty: 60 1RF Rx Instructions: Please take with orange juice pantoprazole [Protonix] 40 mg tablet,delayed release (DR/EC) 40 mg PO BID Qty: 60 1RF Continued Xarelto 20 mg tablet 20 mg PO QPM sotalol 160 mg tablet 160 mg PO BID clonazepam 1 mg tablet 1 mg PO DAILY 30 Days Qty: 30 2RF escitalopram oxalate [Lexapro] 10 mg tablet 10 mg PO DAILY Qty: 30 2RF meclizine 25 MG tablet 50 mg PO DAILY PRN (Reason: DIZZINESS ) pantoprazole 40 MG tablet 40 mg PO DAILY atorvastatin 40 MG tablet 40 mg PO QPM spironolactone 25 MG tablet 12.5 mg PO DAILY empagliflozin 10 MG tablet 10 mg PO QPM metoprolol succinate 100 MG tablet extended release 24 hr 100 mg PO QPM metformin 500 MG tablet extended release 24 hr 500 mg PO QPM fish oil-dha-epa 1,200-144-216 mg capsule 1 cap PO DAILY ramipril 2.5 mg capsule 2.5 mg PO QPM ketoconazole 2 % shampoo 1 applic TOPICAL QODAY ascorbic acid (vitamin C) 500 mg tablet 500 mg PO DAILY menthol Gel 1 applic topical QHS Held aspirin 81 MG tablet,delayed release (DR/EC) 81 mg PO DAILY@1700 Hold Instructions: Resume on 04/20/23. Referrals / Follow Up: Cathy Kellogg DO [Primary Care Provider] - Within 2 Weeks Papito Ledesma DO [Med Staff - Active Staff] - See Referral Note (Call on Friday to set up an appointment to be seen within the next 1 to 2 months for hospital follow-up) Disposition Disposition (needs filled in before D/C Order can be placed): Home, Self Care Charges/Coding Visit Charges Inpatient E&M: 74048 Disch Hosp >30min
[2023-04-05 11:36] VITALS: BP 109/73; PULSE 80; RESP 16; TEMP 36.5; O2SAT 91
--- NOTE | 2023-04-05 11:43 | CASEMGMT ---
KADY MORILLO Assessment: Face to Face with pt for initial transition planning/care coordination assessment. RN ILIA introduced self and role at [facility], pt voices understanding and consents to assessment. Pt is A/O x4 and answers all questions appropriately at this time. Pt lying in bed with pap on in no distress. Care providers, pharmacy, and demographics verified/updated. Admitting Dx: LOUISE PCP:[facility] Specialists:Eliseo, cardio; Seese, psych Preferred Pharmacy: [facility] Insurance: [employer] Prescription Benefit: Yes LNOK: Jing Avelar, ; Horacio Avelar, son Living Arrangements: Pt lives with in a single story home with 3 steps to enter without a rail. Pt reports being I in ADL's and denies concerns at home. Transportation: Pt drives self and denies concerns with transportation. DME/HHC/SNF: Pt has a FWW but does not use, BP cuff, pap with 3L oxygen bled in through [employer] and pox. Pt denies hx of HHC or SNF stays. Pt states no concerns with going home at time of dc. Pt states no further concerns/needs. CM to follow. Advised pt to ask CM if any further question/concerns/needs arise, voices understanding. Pt Goal: Home Plan: Home
[2023-04-05 11:44] LABS: Bedside Glucose 125 mg/dL (74-106)
[2023-04-05 12:58] LABS: Hemoglobin 8.6 g/dL (13.0-16.5)
== END 2023-04-05 13:21 | disposition home or self-care (01) | DRG 378 ==
LOC: ED 18:16 → MS3 18:29
PROVIDERS: Internal Medicine Gastroenterology; Admitting Provider Internal Medicine; Emergency Provider Emergency Medicine; PCP Internal Medicine; Visit Provider Internal Medicine
PROC: 0DJ08ZZ Inspection of Upper Intestinal Tract, Via Natural or Artificial Opening Endoscopic (ICD-10-PCS; CPT 43235; principal; 2023-04-04 19:15)
DX: K31.811 Angiodysplasia of stomach and duodenum with bleeding (principal); D62 Acute posthemorrhagic anemia; I27.20 Pulmonary hypertension, unspecified; E11.22 Type 2 diabetes mellitus with diabetic chronic kidney disease; N18.31 Chronic kidney disease, stage 3a; J44.9 Chronic obstructive pulmonary disease, unspecified; I12.9 Hypertensive chronic kidney disease with stage 1 through stage 4 chronic kidney disease, or unspecified chronic kidney disease; I08.1 Rheumatic disorders of both mitral and tricuspid valves; F17.210 Nicotine dependence, cigarettes, uncomplicated; E78.5 Hyperlipidemia, unspecified; K21.9 Gastro-esophageal reflux disease without esophagitis; G47.33 Obstructive sleep apnea (adult) (pediatric); K44.9 Diaphragmatic hernia without obstruction or gangrene; I25.5 Ischemic cardiomyopathy; I25.10 Atherosclerotic heart disease of native coronary artery without angina pectoris; Z79.01 Long term (current) use of anticoagulants; Z79.82 Long term (current) use of aspirin; Z95.0 Presence of cardiac pacemaker; Z79.84 Long term (current) use of oral hypoglycemic drugs; F41.1 Generalized anxiety disorder
CPT/HCPCS: 36415; 80048; 80053; 82962; 84443; 85014; 85018; 85025; 85610; 86850; 86900; 86901; 86920; 86922; 93005; 94002; 97802; 99284; J7040; J7050; P9016; A4216; J2354; J2916

== ENCOUNTER → 2023-04-14 | Outpatient (CLI) | payer MEDICARE, OTHER, SELFPAY ==
[2023-04-14 12:06] LABS: Absolute Lymphocyte Count 1.06 X10^3/uL (0.83-4.51); Absolute Neutrophil Count 4.5 X10^3/uL (2.0-7.7); Basophil# 0.07 X10^3/uL; Basophil% 1.1 % (0-1); Eosinophils% 3.1 % (0-5); Hematocrit 34.7 % (40-54); Hemoglobin 9.4 g/dL (13.0-16.5); Lymphocyte # 1.06 X10^3/ul (0.83-4.51); Lymphocyte % 16.3 % (19-41); Mean Corp Hgb Conc 27.1 g/dL (32-36); Mean Corpuscular Hgb 22.8 pg (27.0-32.0); Mean Platelet Vol. 10.2 fl (6.2-12.0); Monocyte# 0.68 X10^3/uL; Monocyte% 10.4 % (0-10); NRBC Flagged by Analyzer 0 % (0-5); Neutrophil # 4.49 X10^3/uL (2.7-7.7); Neutrophil % 68.8 % (47-70); POSITIVE MORPHOLOGY YES; Platelet Count 385 K/mm3 (150-450); RBC Distribution Width CV 28.7 % (11.6-14.6); RBC Distribution Width SD 83.8 fl (35.1-43.9); Red Blood Count 4.13 M/mm3 (4.6-6.2); White Blood Count 6.5 K/mm3 (4.4-11.0)
[2023-04-14 12:07] LABS: Differential Indicated SCAN CRITERIA MET
[2023-04-14 12:46] LABS: Anisocytosis 1+
== END | disposition home or self-care (01) ==
PROVIDERS: PCP Internal Medicine; Referring Provider Internal Medicine; Visit Provider Internal Medicine
DX: D64.9 Anemia, unspecified (principal)
CPT/HCPCS: 85025

== ENCOUNTER → 2023-04-16 | Outpatient (CLI) | payer MEDICARE, OTHER, SELFPAY ==
--- NOTE | 2023-04-16 12:51 | ECHOD_ITS ---
Reason For Study: ISCH CMP Procedure This was a 2D Doppler, Color Flow transthoracic echocardiogram. Exam performed in department. Left Ventricle Moderately dilated left ventricle. Mild concentric left ventricular hypertrophy. Severe global left ventricular systolic dysfunction. The left ventricular ejection fraction is 30 %. Stage 3 diastolic dysfunction. Right Ventricle Normal right ventricle. ICD or pacer leads identified within the right ventricle. Atria There is severe biatrial dilatation. ICD or pacer leads identified within the right atrium. Mitral Valve Moderate (2+) mitral valve insufficiency. Tricuspid Valve Mild tricuspid valve insufficiency. Right ventricular systolic pressure estimated to be 52 mmHg. Aortic Valve Moderate diffuse aortic valve calcification. Mild aortic stenosis. Pulmonic Valve The pulmonic valve is not well visualized. Great Vessels Mildly dilated aortic root. Pericardium/Pleural No pericardial effusion. MMode/2D Measurements & Calculations LVIDd: 6.5 cm IVSd: 1.3 cm LVOT diam: 2.3 cm LVIDs: 5.9 cm LVPWd: 1.2 cm LVOT area: 4.1 cm2 RVDd: 4.7 cm FS: 9.8 % Ao root diam: 3.8 cm LAV(MOD-bp): 135.3 ml LVAd ap4: 43.2 cm2 LAV(MOD-bp) Indexed: 62.2 ml/m2 LVLd ap4: 9.3 cm LAV(MOD-sp2): 145.4 ml EDV(MOD-sp4): 169.2 ml LAV(MOD-sp4): 123.8 ml EDV(sp4-el): 169.4 ml LVAs ap4: 36.1 cm2 LVLs ap4: 8.9 cm ESV(MOD-sp4): 128.0 ml ESV(sp4-el): 124.7 ml EF(MOD-sp4): 24.4 % EF(sp4-el): 26.4 % SV(MOD-sp4): 41.2 ml SV(sp4-el): 44.8 ml LA A4 area: 32.7 cm2 LA dimension(2D): 5.5 cm RA A4 area: 32.8 cm2 TAPSE: 2.2 cm Time Measurements MV dec time: 0.12 sec Doppler Measurements & Calculations MV E max mike: 87.9 cm/sec MV V2 max: 98.5 cm/sec MV dec slope: 745.0 cm/sec2 MV A max mike: 33.8 cm/sec MV max P.9 mmHg MV E/A: 2.6 MV V2 mean: 62.4 cm/sec MV mean P.7 mmHg MV V2 VTI: 22.9 cm MVA(VTI): 5.6 cm2 Ao V2 max: 222.9 cm/sec LV V1 max: 123.8 cm/sec MR max mike: 397.9 cm/sec Ao max P.9 mmHg LV V1 max P.1 mmHg MR max P.3 mmHg Ao V2 mean: 156.4 cm/sec LV V1 mean P.6 mmHg MR mean mike: 322.5 cm/sec Ao mean P.3 mmHg LV V1 mean: 88.2 cm/sec MR mean P.8 mmHg Ao V2 VTI: 50.4 cm LV V1 VTI: 30.7 cm MR VTI: 141.8 cm AV (velocity ratio): 0.61 GITA(I,D): 2.5 cm2 GITA(V,D): 2.3 cm2 SV(LVOT): 127.2 ml PA V2 max: 80.8 cm/sec TR max mike: 307.2 cm/sec PA V2 mean: 51.6 cm/sec TR max P.7 mmHg ECHO/Echo Complete Interpretation Summary Moderately dilated left ventricle. Mild concentric left ventricular hypertrophy. Severe global left ventricular systolic dysfunction. The left ventricular ejection fraction is 30 %. Stage 3 diastolic dysfunction. Moderate (2+) mitral valve insufficiency. Right ventricular systolic pressure estimated to be 52 mmHg. Mild aortic stenosis. Mildly dilated aortic root. Ordering Physician: Raysa Carlos Referring Physician: Raysa Carlos Performed By: Radha Ramires RCS
== END | disposition home or self-care (01) ==
LOC: CVS 12:45
PROVIDERS: PCP Internal Medicine; Referring Provider Nurse Practitioner Family; Visit Provider Nurse Practitioner Family
DX: I50.22 Chronic systolic (congestive) heart failure (principal); I25.5 Ischemic cardiomyopathy; I25.10 Atherosclerotic heart disease of native coronary artery without angina pectoris; R06.02 Shortness of breath
CPT/HCPCS: 93306

== ENCOUNTER → 2023-04-22 | Outpatient (CLI) | payer MEDICARE, OTHER, SELFPAY ==
--- NOTE | 2023-04-22 13:33 | CT_ITS ---
STUDY: LOW DOSE CT LUNG CANCER SCREENING REASON FOR EXAM: Male, 72 years old. Lung cancer screening -- and gt;20 pk yr hx;current smoker;asymptomatic RADIATION DOSAGE (If Supplied By Facility): CTDIvol = ( 4.02 ) mGy, DLP = ( 137.43 ) mGycm TECHNIQUE: No contrast was administered. Low dose technique was utilized (average mAS-38 and kVp 120). 1.25 mm axial source images with a slice interval of 1.25-mm were reconstructed in lung windows. 2.5 mm axial source images with a slice interval of 2.5-mm were reconstructed in lung windows. 5.0 mm axial source images with a slice interval of 5.0-mm were reconstructed in soft tissue windows. COMPARISON: Comparison is made with prior study dated January 15, 2022. NODULES: No suspicious nodules are seen. Emphysema: New small right pleural effusion with right basilar atelectasis. Endobronchial lesion: None Aorta: Atherosclerotic plaque formation of the aortic arch. CORONARY ARTERIES: Coronary artery calcification is seen. Heart: A left-sided chamber pacemaker is seen. Pulmonary artery: Unremarkable Mediastinal nodes: Small benign-appearing mediastinal lymph nodes. Other chest and abdominal findings: CT/Low Dose CT Lung Screening IMPRESSION: Lung-RADS category 2 - Continue annual screening with LDCT in 12 months. IMPORTANT NOTES FOR USE: ACR Lung-RADS Version 1.1 Assessment Categories Release Date: 2018 Category: Coded 0-4 bases on nodule(s) with highest degree of suspicion. Negative screen is defined as categories 1 and 2; a positive screen is defined as categories 3 and 4. Category 3 and 4A nodules that are unchanged on interval CT should be coded as category 2, and individuals returned to screening in 12 months. Category 4X: Category 3 or 4 nodules with additional imaging findings that increase the suspicion of lung cancer, such as spiculation, GGN that doubles in size in 1 year, enlarged lymph notes, etc. Category Modifiers: S (significant finding unrelated to lung cancer) Electronically Signed: Andrew Arrington MD at 14:15 EDT ,
== END | disposition home or self-care (01) ==
LOC: CT 13:32
PROVIDERS: PCP Internal Medicine; Referring Provider Nurse Practitioner Family; Visit Provider Nurse Practitioner Family
DX: Z12.2 Encounter for screening for malignant neoplasm of respiratory organs (principal); Z87.891 Personal history of nicotine dependence
CPT/HCPCS: 71271

== ENCOUNTER → 2023-07-23 | Outpatient (CLI) | payer MEDICARE, OTHER, SELFPAY ==
[2023-07-23 10:58] LABS: Absolute Lymphocyte Count 1.02 X10^3/uL (0.83-4.51); Absolute Neutrophil Count 8.4 X10^3/uL (2.0-7.7); Basophil# 0.03 X10^3/uL; Basophil% 0.3 % (0-1); Eosinophil# 0.01 X10^3/uL; Eosinophils% 0.1 % (0-5); Hematocrit 49.4 % (40-54); Hemoglobin 14.8 g/dL (13.0-16.5); Lymphocyte # 1.02 X10^3/ul (0.83-4.51); Lymphocyte % 10.1 % (19-41); Mean Corpuscular Hgb 29.8 pg (27.0-32.0); Mean Corpuscular Volume 99.4 fL (80-94); Mean Platelet Vol. 9.3 fl (6.2-12.0); Monocyte# 0.56 X10^3/uL; Monocyte% 5.5 % (0-10); NRBC Flagged by Analyzer 0 % (0-5); Neutrophil # 8.44 X10^3/uL (2.7-7.7); Neutrophil % 83.6 % (47-70); POSITIVE MORPHOLOGY YES; Platelet Count 390 K/mm3 (150-450); RBC Distribution Width CV 18.4 % (11.6-14.6); RBC Distribution Width SD 65.1 fl (35.1-43.9); Red Blood Count 4.97 M/mm3 (4.6-6.2); White Blood Count 10.1 K/mm3 (4.4-11.0)
[2023-07-23 11:01] LABS: Differential Indicated SCAN CRITERIA MET
[2023-07-23 11:08] LABS: Anion Gap 3 (5-15); BUN 23 mg/dL (7-18); BUN/Creat Ratio 14.8 RATIO (10-20); Chloride 107 mmol/L (98-107); Creatinine, Serum 1.55 mg/dL (0.70-1.30); EST Glomerular Filtration Rate 47 mL/min (>60); Est Glom Filt Rate - Afr Amer 57 mL/min (>60); Glucose 142 mg/dL (74-106); Potassium 5.4 mmol/L (3.5-5.1); Sodium Level 143 mmol/L (136-145)
[2023-07-23 11:22] LABS: Anisocytosis 2+; Differential Comment SCANNED; Macrocytosis 1+; Microcytosis 1+
== END | disposition home or self-care (01) ==
LOC: LABSPEC 10:47
PROVIDERS: PCP Internal Medicine; Referring Provider Nurse Practitioner Family; Visit Provider Nurse Practitioner Family
DX: R05.1 Acute cough (principal)
CPT/HCPCS: 80048; 83880; 85025

== ENCOUNTER → 2024-01-21 | Outpatient (CLI) | payer MEDICARE, OTHER, SELFPAY ==
--- NOTE | 2024-01-21 12:59 | CDU_ITS ---
Reason For Study: CAROTID OCCLUSION/STENOSIS BILATERAL Rt. Velocities/BP Lt. Velocities/BP Prox CCA 56.4/16.2 cm/sec. Prox CCA 105.1/21.6 cm/sec. Mid CCA 36.3/10.1 cm/sec. Mid CCA 61.0/17.6 cm/sec. Dist CCA 31.9/9.2 cm/sec. Dist CCA 38.4/11.0 cm/sec. Prox ICA 64.4/25.9 cm/sec. Prox ICA 52.8/18.8 cm/sec. Mid ICA 57.2/26.1 cm/sec. Mid ICA 63.2/25.4 cm/sec. Dist ICA 64.8/25.1 cm/sec. Dist ICA 65.1/25.4 cm/sec. Rt. ICA/CCA = 64.8/36.3=1.8. Lt. ICA/CCA = 65.1/61.0=1.1. Prox ECA 96.3/18.2 cm/sec. Prox ECA 84.2/18.2 cm/sec. Rt. Vert. 41.9/14.2 cm/sec. Lt. Vert. 38.6/14.1 cm/sec. Right Extracranial There is heterogeneous, irregular atherosclerotic plaque noted in the right common carotid artery. There is homogeneous, irregular atherosclerotic plaque noted in the right internal carotid artery. There is heterogeneous, irregular atherosclerotic plaque noted in the right external carotid artery. Left Extracranial There is intimal thickening but no significant atherosclerotic plaque noted in the left common carotid artery. There is heterogeneous, irregular atherosclerotic plaque noted in the left internal carotid artery. There is heterogeneous, irregular atherosclerotic plaque noted in the left external carotid artery. Antegrade flow is noted in the left vertebral artery. Procedure Carotid Duplex 54864. This is a Carotid Duplex examination using B-mode, color flow and specral Doppler. Exam performed in department. VL/Carotid Duplex Ultrasound Interpretation Summary Mild (<50%) stenosis right extracranial internal carotid. Mild (<50%) stenosis left extracranial internal carotid. Patent and antegrade vertebrals bilaterally. Ordering Physician: Cathy Kellogg Referring Physician: Cathy Kellogg Performed By: Dalia Pina, STEVEN, RVT
== END | disposition home or self-care (01) ==
PROVIDERS: PCP Internal Medicine; Referring Provider Internal Medicine; Visit Provider Internal Medicine
DX: I65.23 Occlusion and stenosis of bilateral carotid arteries (principal)
CPT/HCPCS: 93880

== ENCOUNTER → 2024-02-09 | Outpatient (CLI) | payer MEDICARE, OTHER, SELFPAY ==
--- NOTE | 2024-02-09 13:03 | ART_ITS ---
Reason For Study: PVD Procedure A bilateral lower extremity continuous wave Doppler with analog waveform analysis,segmental pressures,and ankle brachial indexes without exercise. Did not exercise patient due to low BP, 84/60, and cardiac history. Left Segmental Pressures Left brachial= 86mmHg. Left thigh = 62mmHg. Left calf = 58mmHg. Left posterior tibial artery = 69mmHg. Left dorsalis pedis artery = 63mmHg. Left digit = 51 mmHg. The left dorsalis pedis waveforms are monophasic. The left posterior tibial artery waveforms are monophasic. Right Segmental Pressures Right brachial= 85mmHg. Right posterior tibial artery = 110mmHg. Right dorsalis pedis artery = 109mmHg. Right digit = 76 mmHg. The right dorsalis pedis waveforms are biphasic. The right posterior tibial artery waveforms are triphasic. Indices The right ankle brachial index by the dorsalis pedis is 1.27. The right ankle brachial index by the posterior tibial artery is 1.28. The right digital-brachial index is 0.88. The left ankle brachial index by the dorsalis pedis is 0.73. The left ankle brachial index by the posterior tibial artery is 0.80. The left digital-brachial index is 0.59. VL/Lower Ext Art Exam w/o Exercis Interpretation Summary Right JUDITH 1.28, normal. TBI and Doppler/PVR waveforms of the right leg normal a t rest. Left JUDITH 0.8, moderate arterial insufficiency. Doppler/PVR waveforms and segmen cliff pressures reveal ydxid-[id number] femoral disease. Ordering Physician: Cathy Kellogg Referring Physician: Cathy Kellogg Performed By: Ruth Stewart RVT
== END | disposition home or self-care (01) ==
LOC: CVS 12:59
PROVIDERS: PCP Internal Medicine; Referring Provider Internal Medicine; Visit Provider Internal Medicine
DX: I73.9 Peripheral vascular disease, unspecified (principal); I65.23 Occlusion and stenosis of bilateral carotid arteries
CPT/HCPCS: 93923

== ENCOUNTER → 2024-04-07 | Outpatient (CLI) | payer MEDICARE, OTHER, SELFPAY ==
[2024-04-07 12:36] LABS: Potassium 4.6 mmol/L (3.5-5.1)
== END | disposition home or self-care (01) ==
LOC: LABSPEC 12:05
PROVIDERS: PCP Internal Medicine; Referring Provider Internal Medicine; Visit Provider Internal Medicine
DX: E87.5 Hyperkalemia (principal)
CPT/HCPCS: 84132

== ENCOUNTER → 2024-05-18 | Outpatient (CLI) | payer MEDICARE, OTHER, SELFPAY ==
--- NOTE | 2024-05-18 13:31 | CT_ITS ---
STUDY: LOW DOSE CT LUNG CANCER SCREENING REASON FOR EXAM: Male, 73 years old. Lung cancer screening -- and gt; 20 pk yr hx;current smoker; asymptomatic RADIATION DOSAGE (If Supplied By Facility): CTDIvol = ( 3.02 ) mGy, DLP = ( 119.65 ) mGycm TECHNIQUE: No contrast was administered. Low dose technique was utilized (average mAS-38 and kVp 120). 1.25 mm axial source images with a slice interval of 1.25-mm were reconstructed in lung windows. 2.5 mm axial source images with a slice interval of 2.5-mm were reconstructed in lung windows. 5.0 mm axial source images with a slice interval of 5.0-mm were reconstructed in soft tissue windows. COMPARISON: Comparison is made with prior study April 22, 2023. NODULES: No suspicious nodules are seen. Emphysema: Mild degree of emphysematous changes. Stable pleural parenchymal changes at the right lung base. This may represent scarring. Increased markings at the lung bases suggestive of interstitial scarring. Endobronchial lesion: Unremarkable Aorta: Atherosclerotic plaque formation of the aortic arch. CORONARY ARTERIES: Coronary artery calcification is seen. Heart: Dual-chamber pacemaker is seen. Pulmonary artery: Unremarkable Mediastinal nodes: Small mediastinal lymph nodes. Other chest and abdominal findings: Degenerative changes of the vertebrae. CT/Low Dose CT Lung Screening IMPRESSION: Lung-RADS category 2 - Continue annual screening with LDCT in 12 months. IMPORTANT NOTES FOR USE: ACR Lung-RADS Version 1.1 Assessment Categories Release Date: 2018 Category: Coded 0-4 bases on nodule(s) with highest degree of suspicion. Negative screen is defined as categories 1 and 2; a positive screen is defined as categories 3 and 4. Category 3 and 4A nodules that are unchanged on interval CT should be coded as category 2, and individuals returned to screening in 12 months. Category 4X: Category 3 or 4 nodules with additional imaging findings that increase the suspicion of lung cancer, such as spiculation, GGN that doubles in size in 1 year, enlarged lymph notes, etc. Category Modifiers: S (significant finding unrelated to lung cancer) Electronically Signed: Andrew Arrington MD at 13:53 EDT ,
== END | disposition home or self-care (01) ==
LOC: CT 13:31
PROVIDERS: PCP Internal Medicine; Referring Provider Nurse Practitioner Family; Visit Provider Nurse Practitioner Family
DX: Z12.2 Encounter for screening for malignant neoplasm of respiratory organs (principal); Z87.891 Personal history of nicotine dependence
CPT/HCPCS: 71271

== ENCOUNTER → 2024-09-06 | Outpatient (CLI) | payer MEDICARE, OTHER, SELFPAY ==
[2024-09-06 14:40] LABS: PSA,Total- Diagnostic 4.28 ng/mL (0.0-4.0)
== END | disposition home or self-care (01) ==
LOC: LAB 13:29
PROVIDERS: PCP Internal Medicine; Referring Provider Nurse Practitioner; Visit Provider Nurse Practitioner
DX: R97.20 Elevated prostate specific antigen [PSA] (principal)
CPT/HCPCS: 36415; 84153

== ENCOUNTER 2025-04-04 13:00 | Outpatient (RCR) | payer MEDICARE, OTHER, SELFPAY ==
--- NOTE | 2025-03-14 13:56 | HP.PTEVAL_ITS ---
Patient's Visit Information Visit Information Visit Information: MISSY MUÑOZ is a 74 year old M referred to Physical Therapy by Dr. Cathy Kellogg DO with a diagnosis of RIGHT SHOULDER PAIN. Date of Evaluation: 03/14/25 Physical Therapist: Asif Paulino PT, Cert MDT, OCS Visit Plan Frequency: 2x /Week Duration: 4 Weeks Plan: PRECAUTION: PACEMAKER NO ESTIM PT INTERVENTIONS ROM ,ISOMETRCS SHOULDER ,RTC /SCAPULAR STRENGTHENING ,POSTURAL EX'S CP/MHP AND US Subjective Subjective: This 74 y/o male presents to physical therapy with right shoulder pain. Patient has h/o RTC tear . Patient most recently fell on right shoulder caused pain ~ 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 Location of pain right shoulder to elbow. Aggravating factors raising arm ,lifting ,affects ADLS and housework task. Alleviating factors rest no mediacion, Pain at night uses teylonal . Denies paresthesia/tingling -. Patient pain affects QOL,and function. SOCAIL: HOBBIES: Fishing Pain Right Shoulder: Pain Intensity (Out of 10): 3 Pain Intensity Range: 9 Objective Objective: POSTURE: rounded shoulders head forward PALAPTION: unremarkable NEURO: denies paresthesia/tingling AROM: shoulder flexion 90 degrees ,abduction 45 degrees in sacpation , ER 70 degrees , IR S1 PROM : shoulder flexion 140 degrees ,abduction in scapular plane 140 degrees MMT: ( peak force) infraspinatus 7.8 ,subscapularis 5.7 ,supraspinatus 0 ,de ltoid 0 CAPSULAR RESTRICTION: mild/mod G-H Special Tests R Shoulder External Rotation Lag Test - RC Tear: Positive R Shoulder Drop Sign - IS Test: Positive R Shoulder Neer - Impingement: Positive R Shoulder Kunz Pepe - Impingement: Positive Balance/Special Test Scores Quick DASH Score: 45.4525 Goals Goal 1:: Patient to be I with HEP for shoulder Goal Time Frame: 4-6 Weeks Goal 2:: Patient to improve AROM shoulder flexion/abduction by 100 degrees to improve ADLS ,IR L1 to put on cats Goal Time Frame: 4-6 Weeks Goal 3:: Patient to improve peak force RTC /deltoid by 5 points to improve QOL and function Goal Time Frame: 4-6 Weeks Goal 4:: Patient to improve quick dash by 5 points to improve QOL and function. Goal Time Frame: 4-6 Weeks Goal 5:: Patient to demonstrate 30 % improvement with less pain and improved function Goal Time Frame: 4-6 Weeks Rehabilitation Potential Physical Therapy Diagnosis: This patient has right shoulder pain with RTC tear with weakness ,decrease ROM impairs ADLS and housework tasks thus benefit from skilled PT Rehabilitation Potential: Good Anticipated Interventions Patient/Client Instruction: Educate patient on: Condition and Plan of Care For the Purpose of:: To decrease pain, To increase ROM, To improve muscle performance and motor function, To improve ability to perform ADL's, To increase tolerance to activity/condition/position, To improve performance and i ndependence with ADL's, To improve ability of physical actions for home/community/work/leisure, To decrease soft tissue restriction and To increase flexibility/ROM Therapeutic Exercise to Include: Strength training, Flexibilty training, Active ROM and Scapular Strength/Stabilization For the Purpose of:: To decrease pain, To increase ROM, To improve muscle performance and motor function, To improve ability to perform ADL's, To improve gait and locomotor functions, To improve health of tissue and To decrease soft tissue restriction Manual Therapy Techniques to Include: Mobilization and Passive ROM Comment: G-H For the Purpose of:: To decrease pain and To increase ROM TENS: Yes IF ES: Yes Cryotherapy (ice pack, ice massage): Yes Thermo therapy (hot pack): Yes For the Purpose of:: To decrease pain, To increase ROM, To improve nutrient delivery to tissue, To increase oxygenation perfusion, To improve health of tissue and To decrease soft tissue restriction Text: Thank you for the opportunity to evaluate your patient. For Medicare and Medicare HMO plans, please review the plan of care and approve it. It will need to be FAXED BACK to us at [phone] for Medicare purposes. For Medicare only, by signing this I certify the plan of care. Please let me know if there are questions or concerns regarding this plan of care. Physician Signature: Date:
--- NOTE | 2025-04-04 13:23 | HP.PTDCSUM_ITS ---
Discharge Summary D/C summary: It has been my pleasure to treat MISSY MUÑOZ referred by Dr. Cathy Kellogg DO, with the diagnosis of RIGHT SHOULDER PAIN for a total of 8 visit(s). Discharge Date: Please see the following information for a summary of their discharge status. Subjective Subjective: Getting better improved Pain Right Shoulder: Pain Intensity (Out of 10): 0 Overall Improvement % Improvement: 50 Objective Objective/Function: POSTURE: rounded shoulders head forward PALAPTION: unremarkable NEURO: denies paresthesia/tingling AROM: shoulder flexion 30 degrees ,abduction 125 degrees in sacpation , ER 70 degrees , IR S1 PROM : shoulder flexion 150 degrees ,abduction in scapular plane 140 degrees MMT: ( peak force) infraspinatus 10.8 ,subscapularis 12.7 ,supraspinatus 0 ,deltoid 0 CAPSULAR RESTRICTION: mild/mod G-H Goals Goal 1:: Patient to be I with HEP for shoulder Goal Progress: Goal Met Goal 2:: Patient to improve AROM shoulder flexion/abduction by 100 degrees to improve ADLS ,IR L1 to put on cats Goal Progress: Goal Met Goal 3:: Patient to improve peak force RTC /deltoid by 5 points to improve QOL and function Goal Progress: Goal Met Goal 4:: Patient to improve quick dash by 5 points to improve QOL and function. Goal Progress: Goal Met Goal 5:: Patient to demonstrate 30 % improvement with less pain and improved function Goal Progress: Goal Met Plan Plan: D/C HEP D/C Information d/c sentence: If there are questions or concerns regarding this patient's physical therapy, pl ease feel free to call me at [phone]. Thank you for the referral of this patient. Sincerely, Asif Paulino, PT, Cert MDT, OCS Balance/Gait/Functional tests Balance/Special Test Scores Quick DASH Score: 45.4525 Improvement % Improvement: 50
== END 2025-04-04 19:00 | disposition home or self-care (01) ==
LOC: PT 13:00
PROVIDERS: PCP Internal Medicine; Referring Provider Internal Medicine; Visit Provider Internal Medicine
DX: M25.511 Pain in right shoulder (principal)
CPT/HCPCS: 97110; 97162; 97530

== ENCOUNTER → 2025-04-12 | Outpatient (CLI) | payer MEDICARE, OTHER, SELFPAY ==
--- NOTE | 2025-04-12 12:59 | ECHOCS_ITS ---
Reason For Study Reason For Study: CONGESTIVE HEART FAILURE Procedure This was a 2D Doppler, Color Flow transthoracic echocardiogram. Contrast injection was performed. Exam performed in department. Left Ventricle Severely dilated left ventricle. The left ventricular ejection fraction is 15 %. Stage 3 diastolic dysfunction. There is severe global hypokinesis of the left ventricle. Right Ventricle Mildly dilated right ventricle. ICD or pacer leads identified within the right ventricle. Normal systolic function. Atria The left atrium is moderately enlarged. The right atrium is moderately enlarged. Mitral Valve Mild diffuse mitral valve thickening. Mild-Moderate (1-2+) mitral valve insufficiency. Tricuspid Valve Normal tricuspid valve. Mild (1+) tricuspid valve insufficiency. Pulmonary artery systolic pressure is 33 mmHg. Aortic Valve Trisinus/trileaflet aortic valve. Moderate diffuse aortic valve calcification. Peak aortic valve gradient 18 mmHg. Mean aortic valve gradient 11 mmHg. Pulmonic Valve Normal pulmonic valve. Mild (1+) pulmonic valve insufficiency. Great Vessels Mildly dilated aortic root. The pulmonary artery is normal size. Inferior vena cava collapse with sniff. Pericardium/Pleural No pericardial effusion. Medication 22 gauge I.V. with prn adaptor inserted into left arm. Diluted definity 2ml given slow IV push to enhance endocardial definition. MMode/2D Measurements & Calculations LVIDd: 6.6 cm IVSd: 1.1 cm LVOT diam: 2.5 cm LVIDs: 5.8 cm LVPWd: 0.98 cm RVDd: 4.7 cm FS: 13.1 % LVOT area: 5.0 cm2 Ao root diam: 3.4 cm LAV(MOD-bp): 109.3 ml LVAd ap4: 47.3 cm2 LAV(MOD-bp) Indexed: 54.7 ml/m2 LVLd ap4: 9.1 cm LAV(MOD-sp2): 104.9 ml EDV(MOD-sp4): 196.8 ml LAV(MOD-sp4): 111.7 ml EDV(sp4-el): 209.5 ml LVAs ap4: 42.7 cm2 LVLs ap4: 9.0 cm ESV(MOD-sp4): 165.2 ml ESV(sp4-el): 172.3 ml EF(MOD-sp4): 16.0 % EF(sp4-el): 17.8 % LVAd ap2: 51.9 cm2 SV(MOD-sp4): 31.6 ml SV(MOD-sp2): 34.8 ml LVLd ap2: 9.2 cm SI(MOD-sp4): 15.8 ml/m2 SI(MOD-sp2): 17.4 ml/m2 EDV(MOD-sp2): 234.7 ml EDV(sp2-el): 249.9 ml LVAs ap2: 47.9 cm2 LVLs ap2: 9.3 cm ESV(MOD-sp2): 199.9 ml ESV(sp2-el): 208.1 ml EF(MOD-sp2): 14.8 % SV(sp4-el): 37.3 ml Ao sinus diam: 4.0 cm LA A4 area: 30.1 cm2 LA dimension(2D): 5.5 cm RA A4 area: 24.7 cm2 Time Measurements MV dec time: 0.19 sec Doppler Measurements & Calculations MV E max kelby: 72.3 cm/sec Lat Peak E' Kelby: 2.9 cm/sec Med Peak E' Kelby: 3.9 cm/sec MV A max kelby: 19.5 cm/sec E/E' lat: 24.7 E/E' med: 18.5 MV E/A: 3.7 Ao V2 max: 213.4 cm/sec LV V1 max: 76.5 cm/sec MV dec slope: 383.7 cm/sec2 Ao max P.3 mmHg LV V1 max P.4 mmHg Ao V2 mean: 156.3 cm/sec LV V1 mean P.4 mmHg Ao mean P.0 mmHg LV V1 mean: 56.3 cm/sec Ao V2 VTI: 45.1 cm LV V1 VTI: 16.1 cm AV (velocity ratio): 0.36 GITA(I,D): 1.8 cm2 GITA(V,D): 1.8 cm2 SV(LVOT): 80.6 ml PA V2 max: 56.0 cm/sec TR max kelby: 264.4 cm/sec TR max P.2 mmHg ECHO/Echo Complete W/ Contrast Interpretation Summary The left ventricular ejection fraction is 15 %. Severely dilated left ventricle. There is severe global hypokinesis of the left ventricle. Mild-Moderate (1-2+) mitral valve insufficiency. Pulmonary artery systolic pressure is 33 mmHg. Stage 3 diastolic dysfunction. Low-flow low gradient aortic stenosis present. Compared to previous study, the left ventricular systolic function has worsened.. Ordering Physician: Raysa Carlos Referring Physician: Cathy Kellogg M.D. Performed By: Deirdre Varner, STEVEN, RVT
== END | disposition home or self-care (01) ==
LOC: CVS 12:51
PROVIDERS: PCP Internal Medicine; Referring Provider Nurse Practitioner Family; Visit Provider Nurse Practitioner Family
DX: I11.0 Hypertensive heart disease with heart failure (principal); I50.22 Chronic systolic (congestive) heart failure; I47.20 Ventricular tachycardia, unspecified; I25.5 Ischemic cardiomyopathy; I25.10 Atherosclerotic heart disease of native coronary artery without angina pectoris
CPT/HCPCS: 93306; Q9957; A4216; C8929

== ENCOUNTER → 2025-06-07 | Outpatient (CLI) | payer MEDICARE, OTHER, SELFPAY ==
--- NOTE | 2025-06-07 13:35 | CT_ITS ---
PROCEDURE: LOW DOSE CT LUNG SCREENING 06/07/2025 REASON FOR EXAM: LUNG CANCER SCREENING Current smoker. Patient has smoked 1 pack per day for 62 years. COPD. TECHNIQUE: Procedure Code: [id number] Modality: CT Procedure: LOW DOSE CT LUNG SCREENING Coronal and Sagittal reconstruction series were provided. One or more dose reduction techniques were used (e.g., Automated exposure control, adjustment of the mA and/or kV according to patient size, use of iterative reconstruction technique). REFERENCE LINK: [employer] Lung-RADS RADIATION DOSE SUMMARY: CTDlvol: 2.39 mGy DLP: 87.27 mGycm COMPARISON: May 18, 2024 FINDINGS: PULMONARY NODULES: (Only nodules >3mm are reported) Nodules described below are on series 1 unless otherwise specified. Pulmonary Nodules: No suspicious pulmonary nodule seen. Hardware:Left-sided dual-chamber pacemaker. Lymph Nodes:No suspicious lymph nodes are present. Heart and Vasculature:The heart is nonenlargedAtherosclerotic calcifications of the thoracic aorta. Thoracic aorta and pulmonary arteries have normal contours; noncontrast technique limits evaluation. Coronary Artery Calcifications: Present Lungs and Airways: Mild degree of emphysematous changes. No focal consolidation is seen. Pleura:No pleural effusion. Upper Abdomen:Unremarkable Bones:Degenerative changes of the thoracic spine. CT/Low Dose CT Lung Screening IMPRESSION: Stable examination. Coronary artery calcification (CAC) is is present Lung-RADS Category: 2 BENIGN (BASED ON IMAGING FEATURES OR INDOLENT BEHAVIOR). RECOMMEND 12-MONTH SCREENING LDCT. Other Significant Findings: Reading Location: [facility]
== END | disposition home or self-care (01) ==
LOC: CT 13:26
PROVIDERS: PCP Internal Medicine; Referring Provider Nurse Practitioner Family; Visit Provider Nurse Practitioner Family
DX: Z12.2 Encounter for screening for malignant neoplasm of respiratory organs (principal); Z87.891 Personal history of nicotine dependence
CPT/HCPCS: 71271